=== PATIENT | male | born 1945 | race Caucasian/White ===

== ENCOUNTER → 2016-08-31 | Outpatient (CLI) | payer MEDICARE, OTHER ==
--- NOTE | 2016-08-31 14:59 | CR ---
EXAMINATION: Left knee HISTORY: Osteoarthritis COMPARISON: 01/08/2014 TECHNIQUE: 4 views FINDINGS/IMPRESSION: There is moderate to severe joint space narrowing within the medial compartment of the left knee and less so within the patellofemoral compartment. Osteophyte formation is noted. There is a trace suprapatellar joint fluid without an acute osseous abnormality identified.
== END | disposition home or self-care (01) ==
LOC: MW.CHORTHO 08:05
PROVIDERS: ATTEND Orthopaedic Surgery
DX: M17.9 Osteoarthritis of knee, unspecified (principal); M25.862 Other specified joint disorders, left knee; M25.762 Osteophyte, left knee
CPT/HCPCS: 73564-26-LT; 73564-LT; 99214

== ENCOUNTER → 2016-09-14 | Outpatient (CLI) | payer MEDICARE, OTHER ==
[2016-09-14 15:40] LABS: CHLORIDE,CL 104 mmol/L (98-110); SODIUM,NA 139 mmol/L (136-146)
--- NOTE | 2016-09-14 16:35 | CR ---
EXAMINATION: Two-view chest (PA and Lateral views). HISTORY: Hypertension. FINDINGS: The trachea is midline. The cardiomediastinal silhouette is within normal limits. No pulmonary infil trates, effusions or pneumothorax. Stable left basilar scarring. Osseous structures appear unremarkable. IMPRESSION: No acute cardiopulmonary process.
== END ==
LOC: MW.CHFP 14:41
PROVIDERS: ATTEND Emergency Medicine
DX: Z01.818 Encounter for other preprocedural examination (principal); I10 Essential (primary) hypertension
CPT/HCPCS: 36415; 71020; 71020-26; 80048; 81003; 85027; 85610; 93005; 99214

== ENCOUNTER 2016-10-02 10:00 | Inpatient (IN) | payer MEDICARE, OTHER ==
[~2016-10-02 10:00] MED LIST: Acetaminophen 500 MG Tab PO SCH; Famotidine 20 MG/2 ML SDV IVPUSH SCH; Ropivacaine 49.25 ML, EPINEPHrine 0.5 MG, cloNIDine 80 MCG in Sodium Chloride 0.9% 49.4... INFILT ONE; Scopolamine 1.5 MG Transdermal Patch TRDERM SCH; ceFAZolin 2 GM in Premix Bag 1 BAG IV SCH; oxyCODONE ER 20 MG TAB.ER PO SCH
--- NOTE | 2016-10-02 11:42 | PCM.PREANE ---
Preanesthetic Assessment - Anesthesia/Transfusion/Family Hx Anesthesia History: Prior Anesthesia Without Reaction Other Type of Anesthesia Reaction Comment: Denies any known problem in past Family History of Anesthesia Reaction: No Transfusion History: No Prior Transfusion(s) - Review of Systems General: No Symptoms Pulmonary: No Symptoms Cardiovascular: No Symptoms Gastrointestinal: No symptoms Neurological: No Symptoms Other: Reports: None - Physical Assessment NPO Status Date: 10/01/16 NPO Status Time: 22:00 Height: 1.75 m Weight: 160.572 kg ASA Class: 3 Mental Status: Alert & Oriented x3 Airway Class: Mallampati = 2 Dentition: Reports: Normal Dentition, Missing Tooth/Teeth Lungs: Clear to auscultation, Normal respiratory effort Cardiovascular: Regular Rate, Regular Rhythm - Allergies Allergies/Adverse Reactions: Allergies Allergy/AdvReac Type Severity Reaction Status Date / Time No Known Allergies Allergy Verified 09/28/16 10:37 - Blood Blood Available: Yes - Anesthesia Plan Pre-Op Medication Ordered: None Med Last Dose Date: 10/02/16 Med Last Dose Time: 08:00 (Diltiazem) - Acknowledgements Anesthesia Type Planned: Spinal Pt an Appropriate Candidate for the Planned Anesthesia: Yes Alternatives and Risks of Anesthesia Discussed w Pt/Guardian: Yes Pt/Guardian Understands and Agrees with Anesthesia Plan: Yes Additional Comments: Stent x2 in Jul 2015, off plavix x 1 month, off aspirin x 7 days. PreAnesthesia Questionnaire HEENT History: Reports: Hard of hearing, Other (see below) Other HEENT History: wears glasses, hx of fx nose Cardiovascular History: Reports: CAD, High cholesterol, Hypertension (beta inessa started for htn and cad stopped for worsening COPD/dyspnea), Stents Other Cardiovascular History: stents x 2 in Jul 2015, denies chest pain/SOB Respiratory History: Reports: COPD (moderate obstructive dz per PFTs), Sleep apnea Other Respiratory History: uses CPAP, DAREN is "severe" during periods of REM sleep Gastrointestinal History: Reports: Colon polyp Genitourinary History: Reports: BPH Musculoskeletal History: Reports: Arthritis Neurological History: Reports: None Psychiatric History: Reports: None Endocrine/Metabolic History: Reports: Obesity/BMI 30+ Hematologic History: Reports: None Immunologic History: Reports: None Oncologic (Cancer) History: Reports: None Dermatologic History: Reports: None - Past Surgical History Head Surgeries/Procedures: Reports: None HEENT Surgical History: Reports: Tonsillectomy Cardiovascular Surgical History: Reports: Coronary artery stent Respiratory Surgical History: Reports: None GI Surgical History: Reports: Colonoscopy Male Surgical History: Reports: None Endocrine Surgical History: Reports: None Neurological Surgical History: Reports: None Musculoskeletal Surgical History: Reports: ORIF, Shoulder surgery Other Musculoskeletal Surgeries/Procedures:: ORIF fx left thumb (no hardware), schrapnel removed from shoulder Dermatological Surgical History: Reports: None - SUBSTANCE USE Smoking Status *Q: Never Smoker Tobacco Use Within Last Twelve Months: No Second Hand Smoke Exposure: No Days Per Week of Alcohol Use: 0 Number of Drinks Per Day: 0 Total Drinks Per Week: 0 Recreational Drug Use History: No - HOME MEDS Home Medications: Home Meds Aspirin [Halfprin] 81 mg PO DAILY 12/02/14 [History] Rosuvastatin [Crestor] 1 tab PO DAILY 12/02/14 [History] Albuterol Sulfate 1 vial INH Q4HR PRN 09/28/16 [History] Albuterol Sulfate [Proair Hfa] 2 puff INH QID PRN 09/28/16 [History] Diltiazem HCl [Diltiazem ER] 1 tab PO DAILY 09/28/16 [History] Fluticasone Propionate [Flonase] 1 spray NASBOTH DAILY 09/28/16 [History] Fluticasone/Salmeterol [Advair Diskus 500-50] 1 puff INH BID 09/28/16 [History] Ipratropium/Albuterol Sulfate [Iprat-Albut 0.5-3(2.5) mg/3 ml] 1 dose INH TID [History] Loratadine [Claritin] 1 tab PO DAILY 09/28/16 [History] Montelukast Sodium 1 tab PO BEDTIME 09/28/16 [History] Multivitamin [Men's Multi-Vitamin] 1 tab PO DAILY 09/28/16 [History] Potassium [Potassium] 1 tab PO DAILY 09/28/16 [History] Tamsulosin HCl [Flomax] 1 cap PO DAILY 09/28/16 [History] Ubidecarenone/[place]-3/Vit E [Co Q-10-Vit E-Fish Oil Sfgl] 1 cap PO DAILY [History] - CURRENT (IN HOUSE) MEDS Current Meds: Current Medications Acetaminophen (Tylenol Extra Strength) 1,000 mg PO ONARRIVE [facility] Famotidine (Pepcid) 40 mg IVPUSH ONARRIVE [facility] Lactated Ringer's (Ringers, Lactated) 1,000 mls @ 100 mls/hr IV ASDIRECTED ANGELA Cefazolin Sodium/Dextrose 2 gm (/ Premix) 50 mls @ 100 mls/hr IV ONCALL ANGELA Oxycodone HCl (Oxycontin) 20 mg PO ONARRIVE ANGELA Scopolamine (Transderm-Scop) 1.5 mg TRDERM ONARRIVE ANGELA Tranexamic Acid (Cyklokapron) 4,000 mg IV SEECOMMENT ANGELA Discontinued Medications Ropivacaine 49.25 ml/Epinephrine HCl 0.5 mg/Clonidine HCl 80 mcg/ Sodium Chloride 100 mls @ 3,025.21 mls/hr INFILT ONETIME ONE Stop: 10/02/16 06:01 Tranexamic Acid (Cyklokapron) Confirm Administered Dose 4,000 mg .ROUTE .STK- MED ONE Stop: 10/02/16 07:27 Tranexamic Acid (Cyklokapron) Confirm Administered Dose 1,000 mg .ROUTE .STK- MED ONE Stop: 10/02/16 07:29 Tranexamic Acid (Cyklokapron) Confirm Administered Dose 3,000 mg .ROUTE .STK- MED ONE Stop: 10/02/16 10:17 Preanesthetic Assessment - ANESTHESIA/TRANSFUSION/FAMILY HX Anesthesia/Transfusion History: Prior Anesthesia Other Type of Anesthesia Reaction Comment: Denies any known problem in past Family History of Anesthesia Reaction: No Intubation History: Unknown - PHYSICAL ASSESSMENT Height: 1.75 m Weight: 160.572 kg - ALLERGIES Allergies/Adverse Reactions: Allergies Allergy/AdvReac Type Severity Reaction Status Date / Time No Known Allergies Allergy Verified 09/28/16 10:37
[2016-10-02] MEDS ORDERED: Propofol 200 MG/20 ML SDV ONE ×2 (11:47→11:54)
[2016-10-02] MEDS ORDERED: Midazolam 1 MG/ML 2 ML SDV ONE (11:47)
[2016-10-02] MEDS ORDERED: Lidocaine 2% 5 ML SDV ONE (11:47)
[2016-10-02] MEDS ORDERED: fentaNYL 100 MCG/2 ML SDV ONE ×2 (11:47→14:08)
[2016-10-02] MEDS ORDERED: ceFAZolin 1 GM Vial ONE (11:48)
[2016-10-02] MEDS ORDERED: Sodium Chloride 0.9% 20 ML ONE (11:48)
[2016-10-02] MEDS: Lactated Ringers 1,000 ML IV SCH ×2 (12:14→19:42)
[2016-10-02] MEDS ORDERED: Aspirin 81 MG Tab.Chew PO ONE ×2 (13:45)
[2016-10-02] MEDS ORDERED: ePHEDrine 50 MG/ML SDV ONE (14:36)
[2016-10-02] MEDS ORDERED: fentaNYL 100 MCG/2 ML SDV IVPUSH PRN (14:58)
[2016-10-02] MEDS ORDERED: HYDROmorphone 2 MG/ML Syringe IVPUSH ONE (14:58)
[2016-10-02] MEDS ORDERED: Ondansetron 4 MG/2 ML SDV IV PRN (15:29)
[2016-10-02] MEDS ORDERED: diphenhydrAMINE 25 MG Cap PO PRN (15:30)
[2016-10-02] MEDS ORDERED: Bisacodyl 10 MG Supp RECTAL PRN (15:30)
[2016-10-02] MEDS ORDERED: Aluminum Hydroxide/Magnesium Hydroxide/Simethicone Susp 30 ML Cup PO PRN (15:30)
[2016-10-02] MEDS ORDERED: Albuterol 8 GM Inhaler INH PRN (15:33)
[2016-10-02] MEDS ORDERED: Albuterol 0.083% 2.5 MG/3 ML Neb Soln INH PRN (15:33)
--- NOTE | 2016-10-02 15:47 | PCM.OPNOTE ---
- General Post-Op/Procedure Note Date of Surgery/Procedure: 10/02/16 Operative Procedure(s): L TKA Post-Op Diagnosis: DJD L knee Primary Surgeon: [employer]inator: [employer] Coordinator: Gabriel Ferrell in mLs: 50 Condition: Good Free Text/Narrative:: tt= #[id number]
--- NOTE | 2016-10-02 16:16 | PCM.CONS ---
H&P History of Present Illness - General Date of Service: 10/02/16 Admit Problem/Dx: Admission Diagnosis/Problem Admission Diagnosis/Problem Replacement of total knee joint Source of Information: Patient, Old records History Limitations: Reports: No limitations - History of Present Illness Initial Comments - Free Text/Narative: This 70 year old male with pmh of CAD with stenting in Jul 2015, HTN, COPD, DAREN and morbid obesity presented to for L TKA with Dr. Alonso Elias. Hospitalist service consulted for medical management due to pmh. He just arrived to unit from PACU. He is alert and oriented, feeling well at this time. Denies chest pain, palpitations or SOB. Prior to surgery he was feeling well. Beginning of September he was treated for acute sinusitis with Augmentin by Dr. Cain, PCP. He denies any recent fever sinus pain or pressure, sore throat or productive cough. He was feeling at baseline health. This morning he took his Diltiazem and Advair this am prior to surgery. is at bedside. Reports stenting was done due to progressively worsening dyspnea. Cardiology was consulted in 2015 and placed 2 stents, dyspnea did not improve. Was then seen by Pulmonology which diagnosed him with COPD, mild obstructive deficit. Has been stable since with no worsening of dyspnea symptoms. - Related Data Allergies/Adverse Reactions: Allergies Allergy/AdvReac Type Severity Reaction Status Date / Time No Known Allergies Allergy Verified 09/28/16 10:37 Home Medications: Home Meds Aspirin [Halfprin] 81 mg PO DAILY 12/02/14 [History] Rosuvastatin [Crestor] 10 mg PO DAILY 12/02/14 [History] Albuterol Sulfate 1 vial INH Q4HR PRN 09/28/16 [History] Albuterol Sulfate [Proair Hfa] 2 puff INH QID PRN 09/28/16 [History] Diltiazem HCl [Diltiazem ER] 300 mg PO DAILY 09/28/16 [History] Fluticasone Propionate [Flonase] 1 spray NASBOTH DAILY 09/28/16 [History] Fluticasone/Salmeterol [Advair Diskus 500-50] 1 puff INH BID 09/28/16 [History] Loratadine [Claritin] 10 mg PO DAILY 09/28/16 [History] Montelukast Sodium 10 mg PO BEDTIME 09/28/16 [History] Multivitamin [Men's Multi-Vitamin] 1 tab PO DAILY 09/28/16 [History] Potassium [Potassium] 1 tab PO DAILY 09/28/16 [History] Tamsulosin HCl [Flomax] 0.4 mg PO DAILY 09/28/16 [History] Ubidecarenone/[place]-3/Vit E [Co Q-10-Vit E-Fish Oil Sfgl] 1 cap PO DAILY [History] Nabumetone 500 mg PO DAILY 10/02/16 [History] Past Medical History HEENT History: Reports: Hard of hearing, Sinusitis (recently treated September 14 with Augmentin), Other (see below) Other HEENT History: wears glasses, hx of fx nose Cardiovascular History: Reports: CAD, High cholesterol, Hypertension, Stents Other Cardiovascular History: stents x 2 in Jul 2015 Respiratory History: Reports: COPD, Sleep apnea Other Respiratory History: uses CPAP, DAREN is "severe" during periods of REM sleep Gastrointestinal History: Reports: Colon polyp. Denies: GERD, GI bleed Genitourinary History: Reports: BPH. Denies: Chronic renal insuffiency Musculoskeletal History: Reports: Arthritis Neurological History: Reports: None. Denies: CVA, TIA Psychiatric History: Reports: None Endocrine/Metabolic History: Reports: Obesity/BMI 30+. Denies: Diabetes, type II, Hypothyroidism Hematologic History: Reports: None Immunologic History: Reports: None Oncologic (Cancer) History: Reports: None Dermatologic History: Reports: None - Past Surgical History Head Surgeries/Procedures: Reports: None HEENT Surgical History: Reports: Tonsillectomy Cardiovascular Surgical History: Reports: Coronary artery stent Respiratory Surgical History: Reports: None GI Surgical History: Reports: Colonoscopy Male Surgical History: Reports: None Endocrine Surgical History: Reports: None Neurological Surgical History: Reports: None Musculoskeletal Surgical History: Reports: ORIF, Shoulder surgery Other Musculoskeletal Surgeries/Procedures:: ORIF fx left thumb (no hardware), schrapnel removed from shoulder Dermatological Surgical History: Reports: None Social & Family History - Tobacco Use Smoking Status *Q: Never Smoker Second Hand Smoke Exposure: No - Alcohol Use Alcohol Use History: No Days Per Week of Alcohol Use: 0 Number of Drinks Per Day: 0 Total Drinks Per Week: 0 - Recreational Drug Use Recreational Drug Use: No Drug Use in Last 12 Months: No - Living Situation & Occupation Living situation: Reports: H&P Review of Systems - Review of Systems: Review Of Systems: See Below General: Reports: no symptoms. Denies: fever, fatigue HEENT: Reports: no symptoms. Denies: post nasal drip, sinus congestion Pulmonary: Reports: No Symptoms. Denies: Shortness of Breath, Wheezing, Pleuritic Chest Pain, Cough, Sputum Cardiovascular: Reports: no symptoms. Denies: chest pain, palpitations Gastrointestinal: Reports: No symptoms. Denies: Abdominal pain, Nausea, Vomiting Genitourinary: Reports: no symptoms. Denies: dysuria, frequency, burning Musculoskeletal: Reports: no symptoms Skin: Reports: no symptoms Psychiatric: Reports: no symptoms Neurological: Reports: No Symptoms Hematologic/Lymphatic: Reports: no symptoms Immunologic: Reports: no symptoms Exam - Exam Exam: See Below - Vital Signs Vital Signs: Last Vital Signs Temp 98.8 F 10/02/16 11:30 Pulse 74 10/02/16 11:30 Resp 18 10/02/16 11:30 BP 173/84 H 10/02/16 11:30 Pulse Ox 96 10/02/16 11:30 Weight: 160.572 kg - Exam General: alert, oriented, cooperative HEENT: Conjunctiva clear, EACs clear, EOMI, Hearing intact, Mucosa moist & pink , Nares patent, Posterior pharynx clear Neck: supple, trachea midline Lungs: Clear to auscultation, Normal respiratory effort Cardiovascular: regular rate, regular rhythm, normal S1, normal S2. No: irregular rhythm, systolic murmur Abdomen: normal bowel sounds, soft, other (obese abdomen). No: organomegaly, distention, guarding, tenderness Extremities: normal inspection, normal pulses. No: calf tenderness, increased warmth Peripheral Pulses: 2+: posterior tibial (L), posterior tibial (R), dorsalis pedis (L), dorsalis pedis (R) Skin: incision (L knee, dressing and ALEJANDRA intact) Neuro Extensive - Mental Status: alert, oriented x3, normal mood/affect, normal cognition Psychiatric: alert, normal affect, normal mood - Patient Data Lab Results last 24 hrs: Laboratory Results - last 24 hr 10/02/16 Range/Units 11:54 Blood Type O POSITIVE Antibody Screen NEGATIVE Result Diagrams: 10/02/16 17:01 Consult PN Assessment/Plan Procedures: Procedures AIRWAY INHALATION TREATMENT (04/13/15) ALANINE AMINO (ALT) (SGPT) (11/02/14) ASSAY OF NATRIURETIC PEPTIDE (04/23/15) C-REACTIVE PROTEIN (04/13/15) CARDIAC REHAB/MONITOR (11/03/15) CHEST X-RAY 2VW FRONTAL&LATL (09/14/16) COLONOSCOPY AND BIOPSY (12/04/14) COMPLETE CBC AUTOMATED (09/14/16) COMPLETE CBC W/AUTO DIFF WBC (08/30/15) COMPREHEN METABOLIC PANEL (04/13/15) CT THORAX W/O DYE (06/24/15) DRAIN/INJ JOINT/BURSA W/O US (01/04/16) ELECTROCARDIOGRAM TRACING (09/14/16) EMERGENCY DEPT VISIT (04/13/15) EMERGENCY DEPT VISIT (04/13/15) EVALUATE PT USE OF INHALER (04/13/15) EVALUATION OF WHEEZING (05/03/15) HYDRATE IV INFUSION ADD-ON (04/13/15) LIPID PANEL (04/28/16) METABOLIC PANEL TOTAL CA (09/14/16) MRI JNT OF LWR EXTRE W/O DYE (09/06/16) OFFICE/OUTPATIENT VISIT EST (09/14/16) OFFICE/OUTPATIENT VISIT EST (09/13/15) OFFICE/OUTPATIENT VISIT EST (11/02/14) OFFICE/OUTPATIENT VISIT NEW (11/24/14) OFFICE/OUTPATIENT VISIT NEW (03/05/14) POLYSOM 6/>YRS CPAP 4/> PARM (10/13/15) PPSV23 VACC 2 YRS+ SUBQ/IM (11/02/14) PROTHROMBIN TIME (09/14/16) ROUTINE VENIPUNCTURE (09/14/16) THER/PROPH/DIAG INJ IV PUSH (04/13/15) URINALYSIS AUTO W/O SCOPE (09/14/16) URINALYSIS AUTO W/SCOPE (05/03/16) X-RAY EXAM KNEE 4 OR MORE (08/31/16) (1) COPD (chronic obstructive pulmonary disease) SNOMED Code(s): 78339711 Code(s): J44.9 - CHRONIC OBSTRUCTIVE PULMONARY DISEASE, UNSPECIFIED Current Visit: Yes Qualifiers: Chronic bronchitis type: unspecified (2) HTN (hypertension) SNOMED Code(s): 47599059 Code(s): I10 - ESSENTIAL (PRIMARY) HYPERTENSION Current Visit: Yes Qualifiers: Hypertension type: essential hypertension Qualified Code(s): I10 - Essential (primary) hypertension (3) CAD (coronary artery disease) SNOMED Code(s): 39490136 Code(s): I25.10 - ATHSCL HEART DISEASE OF [place] CORONARY ARTERY W/O ANG PCTRS Current Visit: Yes Qualifiers: Coronary Disease-Associated Artery/Lesion type: [place] artery [place] vs. transplanted heart: [place] heart Associated angina: without angina Qualified Code(s): I25.10 - Atherosclerotic heart disease of [place] coronary artery without angina pectoris (4) DAREN on CPAP SNOMED Code(s): 50166468 Code(s): G47.33 - OBSTRUCTIVE SLEEP APNEA (ADULT) (PEDIATRIC); Z99.89 - DEPENDENCE ON OTHER ENABLING MACHINES AND DEVICES Current Visit: Yes (5) Obesity, morbid, BMI 50 or higher SNOMED Code(s): 810600353, 296048539 Code(s): E66.01 - MORBID (SEVERE) OBESITY DUE TO EXCESS CALORIES Current Visit: Yes Problem List Initiated/Reviewed/Updated: Yes My Orders last 24 hours: My Active Orders 10/02/16 16:13 CBC WITH AUTO DIFF [HEME] Routine COMPREHENSIVE METABOLIC PN,CMP [CHEM] Routine Plan: This 70 year old male admitted with L TKA, Hospitalist service consulted for medical management of HTN, CAD, COPD 1. HTN: Continue Diltiazem. Monitor BP. Will monitor BMP today. 2. CAD: Continue Rousvastatin, ASA and Plavix. Did discontinue Toradol due to cardiac risk. 3. COPD: Continue Advair, Montelukast and Proventil. Encourage IS use. 4. DAREN: CPAP at bedside. VTE: Per Orthopedics. Recommend when deemed appropriate.
--- NOTE | 2016-10-02 16:52 | PCM.POSTAN ---
POST ANESTHESIA ASSESSMENT - MENTAL STATUS Mental Status: alert, oriented - RESPIRATORY Respiratory Status: respiratory rate WNL, airway patent, O2 saturation stable, supplemental oxygen (3L per NC) - CARDIOVASCULAR CV Status: pulse rate WNL, blood pressure stable - GASTROINTESTINAL GI Status: no symptoms - PAIN Pain Score: 0 - POST OP HYDRATION Hydration Status: adequate & stable
[2016-10-02 17:33] LABS: CHLORIDE,CL 107 mmol/L (98-110); SODIUM,NA 139 mmol/L (136-146)
[2016-10-02] MEDS: oxyCODONE 5 MG Tab PO PRN ×2 (19:40→23:51)
[2016-10-02] MEDS: Fluticasone/Salmeterol 500-50 MCG Inhalation Powder 14/Diskus INH SCH (20:29)
[2016-10-02] MEDS: Docusate Sodium 100 MG Cap PO SCH (20:32)
[2016-10-02] MEDS: oxyCODONE ER 20 MG TAB.ER PO SCH (20:32)
[2016-10-02] MEDS: Montelukast 10 MG Tab PO SCH (20:32)
[2016-10-02] MEDS ORDERED: Ketorolac 15 MG/ML SDV IVPUSH SCH (21:00)
[2016-10-02] MEDS: Morphine 10 MG/ML Syringe IVPUSH PRN (21:39)
[2016-10-02] MEDS: ceFAZolin 2 GM in Premix Bag 1 BAG IV SCH (21:43)
[2016-10-03] MEDS: Morphine 10 MG/ML Syringe IVPUSH PRN ×2 (00:51→06:06)
--- NOTE | 2016-10-03 03:13 | OR ---
SURGEON: Edith Elias MD DATE OF PROCEDURE: 10/02/2016 PREOPERATIVE DIAGNOSIS: Osteoarthritis, left knee, tricompartmental. POSTOPERATIVE DIAGNOSIS: Osteoarthritis, left knee, tricompartmental. PROCEDURE: Left total knee arthroplasty using patient specific instrumentation. COMPUTER TECHNOLOGY INSTRUCTOR: 1. Leslie Mills PA-C. 2. Gabriel Ferrell PA-C. ANESTHESIA: Spinal and general. ESTIMATED BLOOD LOSS: 50 mL. TOURNIQUET TIME: COMPLICATIONS: None. DVT PROPHYLAXIS: PAS boot and JESS hose to the nonoperative leg. IMPLANTS USED: Madina NexGen femoral component size G (LPS), tibial component size 7, 10 mm all- polyethylene articular surface, and 38 mm all-polyethylene patella. 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 Osteophyte formation was noted. No extensive synovitis was found. 1 g of tranexamic acid was given IV at the start of the case. An additional gram was given IV upon deflation of the tourniquet. 1 g of TXA was given topically as the cement was allowed to harden. BRIEF HISTORY: Donell is a 70-year-old male, who has had complaint of progressive left knee pain. He had failed conservative treatment. Due to his lack of response to conservative treatment, I did recommend surgical intervention. The risks and goals of procedure were discussed with the patient and documented preoperatively. He agreed to proceed. DESCRIPTION OF PROCEDURE: The patient was properly identified and brought to the operating room. The patient was transferred from the operating room cart and placed on the operating room table. Spinal anesthesia was administered by the anesthesia team. After adequate sedation was achieved, a well-padded tourniquet was applied to the lower extremity. A Greenwood catheter was then placed. The lower extremity was then prepped in standard fashion using ChloraPrep solution. It was then sterilely draped. A time-out was performed to ensure correct site and procedure. Preoperative antibiotics were given. The surgical site had been marked preoperatively. An Esmarch was used to exsanguinate the lower extremity and the tourniquet was inflated. An incision was made centered over the anterior aspect of the knee. The subcutaneous tissues were dissected down to the level of the fascia. A medial parapatellar approach was made. A partial medial release was also performed. The knee was then brought into extension and a portion of the infrapatellar fat pad was excised. The knee was then brought into flexion. The femoral patient specific cutting block was placed. This fit anatomically. The pins were then placed. The 0 degree distal femoral cutting guide was placed over the distal femur pins. The femur was then resected using an oscillating saw. The pins were then removed and were placed into the previously placed distal drill holes in the femoral condyles. Both Cherie's and the epicondylar axis were marked with electric cautery. The cutting block was then placed. This was pinned into position in a slightly lateral and externally rotated position. This was then secured. The resection guide was used to check to make sure that the anterior femoral cortex would not be notched. The anterior condylar cut was then made. No notching of the femur was noted. This was followed by the posterior condylar, posterior chamfer, and anterior chamfer cuts. The narrow reciprocating saw was then used to cut the base of the trochlear recess and score the edges. The finishing guide was then removed and the trochlear recess cuts and remaining bone cuts were finished. The notch cutting block was then placed into position and the notch cut was made without difficulty using the reciprocating saw. This was then removed. The notch block that had been cut along with a portion of the cruciate ligaments were also resected. We then turned our attention to the tibia. The posterior cruciate ligament retractor was used to bring the tibial surface anteriorly. The patient specific tibial block was then placed. This fit anatomically. It was pinned into position. The block was then removed. The 0 degree proximal tibia cutting guide was then placed over the guide pin. This was secured with a Radha clamp. The resection depth was checked using the resection guide. A proximal tibia cut was then made using an oscillating saw. Care was taken to protect the patellar tendon. The proximal tibia bone was then removed. The remainder of the medial and lateral meniscus were also excised. Care was taken to protect the popliteus tendon. The proximal tibia was then sized. The remainder of the osteophytes along the proximal tibia were also resected. The distal femur was elevated to expose the posterior knee. The posterior capsule was stripped off the distal femur using a curved osteotome. The posterior osteophytes were also excised. The posterior capsule, along with the medial and lateral gutters, were then injected with the standard, preoperatively prepared, mixture consisting of clonidine, epinephrine, morphine, ropivacaine, Toradol, and saline, unless any allergies were noted preoperatively. The femoral trial was then placed. This was followed by the tibial component with a size 10 trial polyethylene. The knee was brought into full extension. Stability to varus and valgus stress was checked in extension and in flexion. There appeared to be good range of motion and stability. The knee was then brought into full extension. The patella was everted. The patella was resected to a thickness of 15 millimeters. It was then sized. Once the appropriate size was determined, the patella was prepared by placing the patella button in a slightly superior and medial position. The patella button trial was then placed and the knee was again taken through a range of motion. There was excellent patellar tracking using the no-touch technique. Alignment was checked with a drop yuliana. The trial components were then removed. The knee was brought into full flexion and the tibia was prepared in a standard fashion placing the tibial plate in slight external rotation with the center of the prosthesis lined up with the medial aspect of the tibial tubercle. The wound was then copiously irrigated with Pulsavac solution to remove any bony debris. The bone ends were then suctioned dry. Cement was prepared in the usual fashion on the back table. The cement was then placed onto the proximal tibia and the tibial component was placed without difficulty. This was malleted into position. Excess cement was cleared. The femoral component was cemented in a similar manner. A trial polyethylene was then placed and the knee was brought into full extension. An axial load was applied. The patella button was then cemented into place and a patella clamp was placed to hold pressure. The cement was allowed to cure. After the cement had adequately hardened, the patella clamp was released. The knee was again taken through a range of motion. It was determined at this time the correct thickness of polyethylene. The trial polyethylene insert was then removed. The knee was brought into flexion and the tibial tray was suctioned dry. Any excess cement was cleared from the tibial and femoral components. The knee was then brought into approximately 45 degrees of flexion. The tourniquet was deflated. No excess bleeding was noted from the posterior aspect of the knee. The previously determined sized polyethylene insert was then placed and locked into position without difficulty. The knee was again taken through a range of motion with no change in stability, either in flexion or extension. The wound was again copiously irrigated with the Pulsavac solution. The fascia layer was closed with No. 1 Vicryl. The subcutaneous tissue was closed with 2-0 Vicryl and the skin was closed with a miguel ángel. Xeroform gauze was placed over the wound and a bulky dressing was applied. The patient was then awakened from the anesthetic and transferred back to the operating cart. The patient was brought to recovery room in stable condition. All needle and sponge counts were correct. BLANQUITA / PRIYANKA /[id number]
[2016-10-03] MEDS: oxyCODONE 5 MG Tab PO PRN ×4 (03:55→23:55)
[2016-10-03 04:55] LABS: CHLORIDE,CL 103 mmol/L (98-110); SODIUM,NA 136 mmol/L (136-146)
[2016-10-03] MEDS: ceFAZolin 2 GM in Premix Bag 1 BAG IV SCH (05:30)
[2016-10-03] MEDS: Fluticasone/Salmeterol 500-50 MCG Inhalation Powder 14/Diskus INH SCH ×2 (06:09→20:12)
[2016-10-03] MEDS: Lactated Ringers 1,000 ML IV SCH (06:53)
[2016-10-03] MEDS ORDERED: Sodium Chloride 0.9% 10 ML Syringe FLUSH PRN (08:20)
[2016-10-03] MEDS ORDERED: HYDROmorphone 2 MG/ML Syringe IVPUSH PRN (08:20)
[2016-10-03] MEDS ORDERED: Sodium Chloride 0.9% 2.5 ML Syringe FLUSH PRN (08:20)
--- NOTE | 2016-10-03 08:22 | PCM.SURGPN ---
- General Info Date of Service: 10/03/16 Date of Surgery/Procedure: 10/02/16 POD#: 1 Functional Status: Denies: pain controlled - Review of Systems General: Reports: No Symptoms Musculoskeletal: Reports: leg pain Systems Review Comment:: pt up to chair for breakfast tolerating PO intake well c/o knee pain overnight, difficult to control with PO and IV pain medications no specific concerns from pt today - Patient Data Vitals - most recent: Last Vital Signs Temp 98.7 F 10/03/16 04:00 Pulse 76 10/02/16 19:00 Resp 17 10/03/16 04:00 BP 136/72 10/03/16 04:00 Pulse Ox 95 10/03/16 04:00 Weight - most recent: 160.572 kg I&O - last 24 hours: Intake & Output 10/02/16 10/03/16 10/03/16 22:59 06:59 14:59 Intake Total 2850 2300 Output Total 420 950 Balance 2430 1350 Lab Results last 24 hrs: Laboratory Results - last 24 hr 10/02/16 10/02/16 10/02/16 Range/Units 11:54 17:01 17:01 WBC 5.44 (4.0-11.0) K/uL RBC 4.25 L (4.50-5.90) M/uL Hgb 13.3 (13.0-17.0) g/dL Hct 40.1 (38.0-50.0) % MCV 94.4 (80.0-98.0) fL MCH 31.3 (27.0-32.0) pg MCHC 33.2 (31.0-37.0) g/dL RDW Std Deviation 46.5 (28.0-62.0) fl RDW Coeff of Sonia 14 (11.0-15.0) % Plt Count 135 L (150-400) K/uL MPV 9.90 (7.40-12.00) fL Neut % (Auto) 78.5 (48.0-80.0) % Lymph % (Auto) 11.2 L (16.0-40.0) % [place] % (Auto) 7.7 (0.0-15.0) % Eos % (Auto) 2.4 (0.0-7.0) % Baso % (Auto) 0.2 (0.0-1.5) % Neut # 4.3 (1.4-5.7) K/uL Lymph # 0.6 (0.6-2.4) K/uL [place] # 0.4 (0.0-0.8) K/uL Eos # 0.1 (0.0-0.7) K/uL Baso # 0.0 (0.0-0.1) K/uL Nucleated RBC % 0.0 /100WBC Nucleated RBCs # 0 K/uL Sodium 139 (136-146) mmol/L Potassium 4.6 (3.5-5.1) mmol/L Chloride 107 (98-110) mmol/L Carbon Dioxide 23 (21-31) mmol/L BUN 14 (6.0-23.0) mg/dL Creatinine 1.1 (0.6-1.5) mg/dL Est Cr Clr Drug Dosing 63.17 mL/min Estimated GFR (MDRD) > 60.0 ml/min Glucose 119 H (60-110) mg/dL Calcium 8.3 L (8.8-10.8) mg/dL Total Bilirubin 0.3 (0.1-1.5) mg/dL AST 30 (5-40) IU/L ALT 18 (8-54) IU/L Alkaline Phosphatase 87 (40-150) Total Protein 6.2 (6.0-8.0) g/dL Albumin 3.4 (3.4-4.8) g/dL Globulin 2.8 (2.0-3.5) g/dL Albumin/Globulin Ratio 1.2 L (1.3-2.8) Blood Type O POSITIVE Antibody Screen NEGATIVE 10/03/16 10/03/16 Range/Units 04:17 04:17 WBC 8.71 (4.0-11.0) K/uL RBC 4.06 L (4.50-5.90) M/uL Hgb 12.4 L (13.0-17.0) g/dL Hct 38.5 (38.0-50.0) % MCV 94.8 (80.0-98.0) fL MCH 30.5 (27.0-32.0) pg MCHC 32.2 (31.0-37.0) g/dL RDW Std Deviation 47.3 (28.0-62.0) fl RDW Coeff of Sonia 14 (11.0-15.0) % Plt Count 130 L (150-400) K/uL MPV 10.50 (7.40-12.00) fL Neut % (Auto) 85.7 H (48.0-80.0) % Lymph % (Auto) 4.0 L (16.0-40.0) % [place] % (Auto) 9.1 (0.0-15.0) % Eos % (Auto) 1.1 (0.0-7.0) % Baso % (Auto) 0.1 (0.0-1.5) % Neut # 7.5 H (1.4-5.7) K/uL Lymph # 0.4 L (0.6-2.4) K/uL [place] # 0.8 (0.0-0.8) K/uL Eos # 0.1 (0.0-0.7) K/uL Baso # 0.0 (0.0-0.1) K/uL Nucleated RBC % 0.0 /100WBC Nucleated RBCs # 0 K/uL Sodium 136 (136-146) mmol/L Potassium 4.8 (3.5-5.1) mmol/L Chloride 103 (98-110) mmol/L Carbon Dioxide 24 (21-31) mmol/L BUN 15 (6.0-23.0) mg/dL Creatinine 1.0 (0.6-1.5) mg/dL Est Cr Clr Drug Dosing 69.48 mL/min Estimated GFR (MDRD) > 60.0 ml/min Glucose 144 H (60-110) mg/dL Calcium 8.2 L (8.8-10.8) mg/dL Total Bilirubin (0.1-1.5) mg/dL AST (5-40) IU/L ALT (8-54) IU/L Alkaline Phosphatase (40-150) Total Protein (6.0-8.0) g/dL Albumin (3.4-4.8) g/dL Globulin (2.0-3.5) g/dL Albumin/Globulin Ratio (1.3-2.8) Blood Type Antibody Screen Med Orders - Current: Current Medications Al Hydroxide/Mg Hydroxide (Mag-Al Plus) 30 ml PO Q4H PRN PRN Reason: indigestion Albuterol (Proventil Neb Soln) 2.5 mg INH Q4HR PRN PRN Reason: Wheezing Albuterol (Ventolin Hfa) 0 gm INH QID PRN PRN Reason: Shortness of Breath Aspirin (Halfprin) 81 mg PO DAILY [facility] Bisacodyl (Dulcolax) 10 mg RECTAL DAILY PRN PRN Reason: Constipation Calcium Carbonate/Glycine (Tums) 1,000 mg PO DAILY [facility] Clopidogrel Bisulfate (Plavix) 75 mg PO DAILY [facility] Diltiazem HCl (Cardizem Cd) 120 mg PO DAILY [facility] Diltiazem HCl (Cardizem Cd) 180 mg PO DAILY [facility] Diphenhydramine HCl (Benadryl) 25 - 50 mg PO Q6H PRN PRN Reason: Itching Docusate Sodium (Colace) 100 mg PO BID [facility] Last Admin: 10/02/16 20:32 Dose: 100 mg Famotidine (Pepcid) 40 mg PO DAILY [facility] Fluticasone Propionate (Flonase) 0 gm NASBOTH DAILY [facility] Lactated Ringer's (Ringers, Lactated) 1,000 mls @ 100 mls/hr IV ASDIRECTED [facility] Last Admin: 10/03/16 06:53 Dose: 100 mls/hr Loratadine (Claritin) 10 mg PO DAILY [facility] Montelukast Sodium (Singulair) 10 mg PO BEDTIME [facility] Last Admin: 10/02/16 20:32 Dose: 10 mg Morphine Sulfate (Morphine) 1 - 3 mg IVPUSH Q3H PRN PRN Reason: Pain Last Admin: 10/03/16 06:06 Dose: 3 mg Multivitamins/Minerals/Vitamin C (Tab-A-Zuly) 1 tab PO DAILY [facility] Ondansetron HCl (Zofran) 4 mg IV Q6HR PRN PRN Reason: NAUSEA/VOMITING Oxycodone HCl (Oxycodone) 5 - 10 mg PO Q4H PRN PRN Reason: Pain Last Admin: 10/03/16 03:55 Dose: 10 mg Oxycodone HCl (Oxycontin) 20 mg PO Q12HR [facility] Last Admin: 10/02/16 20:32 Dose: 20 mg Rosuvastatin Calcium (Crestor) 10 mg PO DAILY [facility] Fluticasone/Salmeterol (Advair Diskus 500-50) 1 puff INH BIDRT [facility]GEL[facility] Last Admin: 10/03/16 06:09 Dose: 1 inhalation Scopolamine (Transderm-Scop) 1.5 mg TRDERM ONARRIVE ANGELA Last Admin: 10/02/16 12:10 Dose: 1.5 mg Tamsulosin HCl (Flomax) 0.4 mg PO DAILY [facility] Discontinued Medications Acetaminophen (Tylenol Extra Strength) 1,000 mg PO ONARRIVE ANGELA Last Admin: 10/02/16 12:12 Dose: 1,000 mg Aspirin (Aspirin) 325 mg PO ONETIME ONE Stop: 10/02/16 13:46 Aspirin (Aspirin) 324 mg PO ONETIME ONE Stop: 10/02/16 13:46 Last Admin: 10/02/16 13:43 Dose: 324 mg Cefazolin Sodium (Ancef) Confirm Administered Dose 2 gm .ROUTE .STK-MED ONE Stop: 10/02/16 11:49 Ephedrine Sulfate (Ephedrine Sulfate) Confirm Administered Dose 50 mg .ROUTE .STK-MED ONE Stop: 10/02/16 14:37 Famotidine (Pepcid) 40 mg IVPUSH ONARRIVE [facility] Last Admin: 10/02/16 12:09 Dose: 40 mg Fentanyl (Sublimaze) Confirm Administered Dose 100 mcg .ROUTE .STK-MED ONE Stop: 10/02/16 11:48 Fentanyl (Sublimaze) Confirm Administered Dose 100 mcg .ROUTE .STK-MED ONE Stop: 10/02/16 14:09 Fentanyl (Sublimaze) 50 mcg IVPUSH Q5M PRN PRN Reason: Pain (severe 7-10) Stop: 10/03/16 14:58 Hydromorphone HCl (Dilaudid) 0 mg IVPUSH ONETIME ONE Stop: 10/02/16 14:59 Last Admin: 10/02/16 20:03 Dose: Not Given Ropivacaine 49.25 ml/Epinephrine HCl 0.5 mg/Clonidine HCl 80 mcg/ Sodium Chloride 100 mls @ 3,025.21 mls/hr INFILT ONETIME ONE Stop: 10/02/16 06:01 Cefazolin Sodium/Dextrose 2 gm (/ Premix) 50 mls @ 100 mls/hr IV ONCALL ANGELA Sodium Chloride (Normal Saline) Confirm Administered Dose 20 mls @ as directed .ROUTE .STK-MED ONE Stop: 10/02/16 11:49 Cefazolin Sodium/Dextrose 2 gm (/ Premix) 50 mls @ 100 mls/hr IV Q8H [facility] Stop: 10/03/16 06:29 Last Admin: 10/03/16 05:30 Dose: 100 mls/hr Ketorolac Tromethamine (Toradol) 15 mg IVPUSH Q6H [facility] Stop: 10/03/16 03:01 Lidocaine (Xylocaine-Mpf 2%) Confirm Administered Dose 10 ml .ROUTE .STK-MED ONE Stop: 10/02/16 11:48 Midazolam HCl (Versed 1 Mg/Ml) Confirm Administered Dose 2 mg .ROUTE .STK-MED ONE Stop: 10/02/16 11:48 Oxycodone HCl (Oxycontin) 20 mg PO ONARRIVE [facility] Last Admin: 10/02/16 12:13 Dose: 20 mg Propofol (Diprivan 20 Ml) Confirm Administered Dose 400 mg .ROUTE .STK-MED ONE Stop: 10/02/16 11:48 Propofol (Diprivan 20 Ml) Confirm Administered Dose 200 mg .ROUTE .STK-MED ONE Stop: 10/02/16 11:55 Tranexamic Acid (Cyklokapron) 4,000 mg IV SEECOMMENT [facility] Tranexamic Acid (Cyklokapron) Confirm Administered Dose 4,000 mg .ROUTE .STK- MED ONE Stop: 10/02/16 07:27 Tranexamic Acid (Cyklokapron) Confirm Administered Dose 1,000 mg .ROUTE .STK- MED ONE Stop: 10/02/16 07:29 Tranexamic Acid (Cyklokapron) Confirm Administered Dose 3,000 mg .ROUTE .STK- MED ONE Stop: 10/02/16 10:17 Tranexamic Acid (Cyklokapron) Confirm Administered Dose 4,000 mg .ROUTE .STK- MED ONE Stop: 10/02/16 13:03 - Exam Wound/Incisions: dressing dry and intact General: alert, oriented Cardiovascular: Regular Rate, Regular Rhythm Extremities: no edema, normal pulses, no calf tenderness, other (LLE - at/ehl/ gastroc 5/5, dp 2+, sensation intact distally) Physical Findings Comment:: vss, afeb hgb 12.4 uo 1370mL - Problem List Review Problem List Initiated/Reviewed/Updated: Yes - My Orders Last 24 Hours: Active Orders 24 hr Category Date Time Status Patient Status [ADT] Routine ADT 10/02/16 15:40 Active Transfer Patient (Change bed) [ADT] Routine ADT 10/02/16 15:40 Ordered Activity as Tolerated [RC] .Routine Care 10/02/16 15:29 Active Dressing Change [Wound Care] [RC] Q12H Care 10/02/16 15:29 Active Intake and Output [RC] Q12H Care 10/02/16 15:28 Active Neurovascular Check [RC] Q2HR Care 10/02/16 15:28 Active Notify Provider Consults [RC] ASDIRECTED Care 10/02/16 15:31 Active Notify Provider Vital Signs [RC] ASDIRECTED Care 10/02/16 15:29 Active RT Aerosol Therapy [RC] ASDIRECTED Care 10/02/16 15:34 Active RT BiPAP/CPAP [RC] ASDIRECTED Care 10/02/16 15:34 Active RT Incentive Spirometry [RC] ASDIRECTED Care 10/02/16 15:28 Active Vital Signs [RC] Q4H Care 10/02/16 15:28 Active Consult to Physician [CONS] Routine Cons 10/02/16 15:27 Active PT Evaluation and Treatment [CONS] Routine Cons 10/02/16 15:28 Active Knee 1V or 2V Lt [CR] Routine Exams 10/02/16 16:00 Taken BMP [BASIC METABOLIC PANEL,BMP] [CHEM] DAILY Lab 10/04/16 05:00 Ordered BMP [BASIC METABOLIC PANEL,BMP] [CHEM] DAILY Lab 10/05/16 05:00 Ordered CBC WITH AUTO DIFF [HEME] DAILY Lab 10/04/16 05:00 Ordered CBC WITH AUTO DIFF [HEME] DAILY Lab 10/05/16 05:00 Ordered Albuterol [Proventil Neb Soln] Med 10/02/16 15:33 Active 2.5 mg INH Q4HR PRN Albuterol [Ventolin HFA] Med 10/02/16 15:33 Active 0 gm INH QID PRN Alum Hydrox/Mag Hydrox/Simeth [Mag-Al Plus] Med 10/02/16 15:30 Active 30 ml PO Q4H PRN Aspirin [Halfprin] Med 10/03/16 09:00 Active 81 mg PO DAILY Bisacodyl [Dulcolax] Med 10/02/16 15:30 Active 10 mg RECTAL DAILY PRN Calcium Carbonate [Tums] Med 10/03/16 09:00 Active 1,000 mg PO DAILY Clopidogrel [Plavix] Med 10/03/16 09:00 Active 75 mg PO DAILY Diltiazem [Cardizem CD] Med 10/03/16 09:00 Active 120 mg PO DAILY Diltiazem [Cardizem CD] Med 10/03/16 09:00 Active 180 mg PO DAILY Docusate Sodium [Colace] Med 10/02/16 21:00 Active 100 mg PO BID Famotidine [Pepcid] Med 10/03/16 09:00 Active 40 mg PO DAILY Fluticasone Propionate [Flonase] Med 10/03/16 09:00 Active 0 gm NASBOTH DAILY Fluticasone/Salmeterol [Advair Diskus 500-50] Med 10/02/16 21:00 Active 1 puff INH BIDRT Loratadine [Claritin] Med 10/03/16 09:00 Active 10 mg PO DAILY Montelukast [Singulair] Med 10/02/16 21:00 Active 10 mg PO BEDTIME Morphine Med 10/02/16 15:30 Active 1 - 3 mg IVPUSH Q3H PRN Multivitamins [Tab-A-Zuly] Med 10/03/16 09:00 Active 1 tab PO DAILY Ondansetron [Zofran] Med 10/02/16 15:29 Active 4 mg IV Q6HR PRN Rosuvastatin [Crestor] Med 10/03/16 09:00 Active 10 mg PO DAILY Tamsulosin [Flomax] Med 10/03/16 09:00 Active 0.4 mg PO DAILY diphenhydrAMINE [Benadryl] Med 10/02/16 15:30 Active 25 - 50 mg PO Q6H PRN oxyCODONE Med 10/02/16 15:30 Active 5 - 10 mg PO Q4H PRN oxyCODONE ER [OxyCONTIN] Med 10/02/16 21:00 Active 20 mg PO Q12HR Ice Therapy [OM.PC] Routine Oth 10/02/16 15:28 Ordered Medication Orders Al Hydroxide/Mg Hydroxide (Mag-Al Plus) 30 ml PO Q4H PRN PRN Reason: indigestion Albuterol (Proventil Neb Soln) 2.5 mg INH Q4HR PRN PRN Reason: Wheezing Albuterol (Ventolin Hfa) 0 gm INH QID PRN PRN Reason: Shortness of Breath Aspirin (Halfprin) 81 mg PO DAILY [facility] Bisacodyl (Dulcolax) 10 mg RECTAL DAILY PRN PRN Reason: Constipation Calcium Carbonate/Glycine (Tums) 1,000 mg PO DAILY [facility] Clopidogrel Bisulfate (Plavix) 75 mg PO DAILY [facility] Diltiazem HCl (Cardizem Cd) 120 mg PO DAILY [facility] Diltiazem HCl (Cardizem Cd) 180 mg PO DAILY [facility] Diphenhydramine HCl (Benadryl) 25 - 50 mg PO Q6H PRN PRN Reason: Itching Docusate Sodium (Colace) 100 mg PO BID [facility] Last Admin: 10/02/16 20:32 Dose: 100 mg Famotidine (Pepcid) 40 mg PO DAILY [facility] Fluticasone Propionate (Flonase) 0 gm NASBOTH DAILY [facility] Lactated Ringer's (Ringers, Lactated) 1,000 mls @ 100 mls/hr IV ASDIRECTED [facility] Last Admin: 10/03/16 06:53 Dose: 100 mls/hr Infusion: 10/03/16 05:42 Dose: 100 mls/hr Admin: 10/02/16 19:42 Dose: 100 mls/hr Infusion: 10/02/16 19:42 Dose: 100 mls/hr Admin: 10/02/16 12:14 Dose: 100 mls/hr Loratadine (Claritin) 10 mg PO DAILY [facility] Montelukast Sodium (Singulair) 10 mg PO BEDTIME [facility] Last Admin: 10/02/16 20:32 Dose: 10 mg Morphine Sulfate (Morphine) 1 - 3 mg IVPUSH Q3H PRN PRN Reason: Pain Last Admin: 10/03/16 06:06 Dose: 3 mg Admin: 10/03/16 00:51 Dose: 3 mg Admin: 10/02/16 21:39 Dose: 3 mg Multivitamins/Minerals/Vitamin C (Tab-A-Zuly) 1 tab PO DAILY [facility] Ondansetron HCl (Zofran) 4 mg IV Q6HR PRN PRN Reason: NAUSEA/VOMITING Oxycodone HCl (Oxycodone) 5 - 10 mg PO Q4H PRN PRN Reason: Pain Last Admin: 10/03/16 03:55 Dose: 10 mg Admin: 10/02/16 23:51 Dose: 10 mg Admin: 10/02/16 19:40 Dose: 10 mg Oxycodone HCl (Oxycontin) 20 mg PO Q12HR [facility] Last Admin: 10/02/16 20:32 Dose: 20 mg Rosuvastatin Calcium (Crestor) 10 mg PO DAILY [facility] Fluticasone/Salmeterol (Advair Diskus 500-50) 1 puff INH BIDRT ANGEL[facility] Last Admin: 10/03/16 06:09 Dose: 1 inhalation Admin: 10/02/16 20:29 Dose: 1 inhalation Scopolamine (Transderm-Scop) 1.5 mg TRDERM ONARRIVE ANGELA Last Admin: 10/02/16 12:10 Dose: 1.5 mg Tamsulosin HCl (Flomax) 0.4 mg PO DAILY [facility] - Assessment Assessment (Free Text/Narrative):: POD#1 L TKA acute posthemorrhagic anemia - Plan Plan (Free Text/Narrative):: DC patterson DC IV fluids DC PRN IV morphine start PRN IV dilaudid add PO tylenol scheduled resume home plavix and ASA for DVT prophylaxis PT today appreciate hospitalist assistance with medical comorbidities
[2016-10-03] MEDS: Diltiazem 120 MG Cap.CD PO SCH (08:41)
[2016-10-03] MEDS: Rosuvastatin 10 MG Tab PO SCH (08:42)
[2016-10-03] MEDS: Aspirin 81 MG Tab.EC PO SCH (08:42)
[2016-10-03] MEDS: Acetaminophen 500 MG Tab PO SCH ×3 (08:42→21:17)
[2016-10-03] MEDS: Diltiazem 180 MG Cap.CD PO SCH (08:42)
[2016-10-03] MEDS: Tamsulosin 0.4 MG Cap.ER PO SCH (08:42)
[2016-10-03] MEDS: Clopidogrel 75 MG Tab PO SCH (08:42)
[2016-10-03] MEDS: Famotidine 20 MG Tab PO SCH (08:42)
[2016-10-03] MEDS: Multivitamin Tab PO SCH (08:42)
[2016-10-03] MEDS: Loratadine 10 MG Tab PO SCH (08:42)
[2016-10-03] MEDS: Docusate Sodium 100 MG Cap PO SCH ×2 (08:42→21:17)
--- NOTE | 2016-10-03 08:42 | PCM.CONSN ---
- General Info Date of Service: 10/03/16 Admission Dx/Problem (Free Text): Admission Diagnosis/Problem Admission Diagnosis/Problem Replacement of total knee joint Subjective Update: Sitting up in chair this am, reports night was very long and he did not sleep well due to pain in his L knee. Denies any chest pain or SOB. No palpitations, N /V or abdominal pain. Functional Status: Reports: tolerating diet, ambulating - Review of Systems General: Reports: No Symptoms. Denies: Fever Pulmonary: Reports: no symptoms. Denies: shortness of breath, cough, sputum Cardiovascular: Reports: No Symptoms. Denies: Chest Pain, Palpitations, Edema Gastrointestinal: Reports: No symptoms. Denies: Abdominal pain, Nausea, Vomiting Musculoskeletal: Reports: leg pain (L knee pain) Skin: Reports: no symptoms Neurological: Reports: No Symptoms Psychiatric: Reports: no symptoms - Patient Data Vitals - most recent: Last Vital Signs Temp 98.7 F 10/03/16 04:00 Pulse 76 10/02/16 19:00 Resp 17 10/03/16 04:00 BP 136/72 10/03/16 04:00 Pulse Ox 95 10/03/16 04:00 Weight - most recent: 160.572 kg I&O - last 24 hours: Intake & Output 10/02/16 10/03/16 10/03/16 22:59 06:59 14:59 Intake Total 2850 2300 Output Total 420 950 Balance 2430 1350 Lab Results last 24 hrs: Laboratory Results - last 24 hr 10/02/16 10/02/16 10/02/16 Range/Units 11:54 17:01 17:01 WBC 5.44 (4.0-11.0) K/uL RBC 4.25 L (4.50-5.90) M/uL Hgb 13.3 (13.0-17.0) g/dL Hct 40.1 (38.0-50.0) % MCV 94.4 (80.0-98.0) fL MCH 31.3 (27.0-32.0) pg MCHC 33.2 (31.0-37.0) g/dL RDW Std Deviation 46.5 (28.0-62.0) fl RDW Coeff of Sonia 14 (11.0-15.0) % Plt Count 135 L (150-400) K/uL MPV 9.90 (7.40-12.00) fL Neut % (Auto) 78.5 (48.0-80.0) % Lymph % (Auto) 11.2 L (16.0-40.0) % [place] % (Auto) 7.7 (0.0-15.0) % Eos % (Auto) 2.4 (0.0-7.0) % Baso % (Auto) 0.2 (0.0-1.5) % Neut # 4.3 (1.4-5.7) K/uL Lymph # 0.6 (0.6-2.4) K/uL [place] # 0.4 (0.0-0.8) K/uL Eos # 0.1 (0.0-0.7) K/uL Baso # 0.0 (0.0-0.1) K/uL Nucleated RBC % 0.0 /100WBC Nucleated RBCs # 0 K/uL Sodium 139 (136-146) mmol/L Potassium 4.6 (3.5-5.1) mmol/L Chloride 107 (98-110) mmol/L Carbon Dioxide 23 (21-31) mmol/L BUN 14 (6.0-23.0) mg/dL Creatinine 1.1 (0.6-1.5) mg/dL Est Cr Clr Drug Dosing 63.17 mL/min Estimated GFR (MDRD) > 60.0 ml/min Glucose 119 H (60-110) mg/dL Calcium 8.3 L (8.8-10.8) mg/dL Total Bilirubin 0.3 (0.1-1.5) mg/dL AST 30 (5-40) IU/L ALT 18 (8-54) IU/L Alkaline Phosphatase 87 (40-150) Total Protein 6.2 (6.0-8.0) g/dL Albumin 3.4 (3.4-4.8) g/dL Globulin 2.8 (2.0-3.5) g/dL Albumin/Globulin Ratio 1.2 L (1.3-2.8) Blood Type O POSITIVE Antibody Screen NEGATIVE 10/03/16 10/03/16 Range/Units 04:17 04:17 WBC 8.71 (4.0-11.0) K/uL RBC 4.06 L (4.50-5.90) M/uL Hgb 12.4 L (13.0-17.0) g/dL Hct 38.5 (38.0-50.0) % MCV 94.8 (80.0-98.0) fL MCH 30.5 (27.0-32.0) pg MCHC 32.2 (31.0-37.0) g/dL RDW Std Deviation 47.3 (28.0-62.0) fl RDW Coeff of Sonia 14 (11.0-15.0) % Plt Count 130 L (150-400) K/uL MPV 10.50 (7.40-12.00) fL Neut % (Auto) 85.7 H (48.0-80.0) % Lymph % (Auto) 4.0 L (16.0-40.0) % [place] % (Auto) 9.1 (0.0-15.0) % Eos % (Auto) 1.1 (0.0-7.0) % Baso % (Auto) 0.1 (0.0-1.5) % Neut # 7.5 H (1.4-5.7) K/uL Lymph # 0.4 L (0.6-2.4) K/uL [place] # 0.8 (0.0-0.8) K/uL Eos # 0.1 (0.0-0.7) K/uL Baso # 0.0 (0.0-0.1) K/uL Nucleated RBC % 0.0 /100WBC Nucleated RBCs # 0 K/uL Sodium 136 (136-146) mmol/L Potassium 4.8 (3.5-5.1) mmol/L Chloride 103 (98-110) mmol/L Carbon Dioxide 24 (21-31) mmol/L BUN 15 (6.0-23.0) mg/dL Creatinine 1.0 (0.6-1.5) mg/dL Est Cr Clr Drug Dosing 69.48 mL/min Estimated GFR (MDRD) > 60.0 ml/min Glucose 144 H (60-110) mg/dL Calcium 8.2 L (8.8-10.8) mg/dL Total Bilirubin (0.1-1.5) mg/dL AST (5-40) IU/L ALT (8-54) IU/L Alkaline Phosphatase (40-150) Total Protein (6.0-8.0) g/dL Albumin (3.4-4.8) g/dL Globulin (2.0-3.5) g/dL Albumin/Globulin Ratio (1.3-2.8) Blood Type Antibody Screen Med Orders - Current: Current Medications Acetaminophen (Tylenol Extra Strength) 1,000 mg PO Q6H ANGELA Al Hydroxide/Mg Hydroxide (Mag-Al Plus) 30 ml PO Q4H PRN PRN Reason: indigestion Albuterol (Proventil Neb Soln) 2.5 mg INH Q4HR PRN PRN Reason: Wheezing Albuterol (Ventolin Hfa) 0 gm INH QID PRN PRN Reason: Shortness of Breath Aspirin (Halfprin) 81 mg PO DAILY [facility] Bisacodyl (Dulcolax) 10 mg RECTAL DAILY PRN PRN Reason: Constipation Calcium Carbonate/Glycine (Tums) 1,000 mg PO DAILY [facility] Clopidogrel Bisulfate (Plavix) 75 mg PO DAILY [facility] Diltiazem HCl (Cardizem Cd) 120 mg PO DAILY [facility] Diltiazem HCl (Cardizem Cd) 180 mg PO DAILY [facility] Diphenhydramine HCl (Benadryl) 25 - 50 mg PO Q6H PRN PRN Reason: Itching Docusate Sodium (Colace) 100 mg PO BID [facility] Last Admin: 10/02/16 20:32 Dose: 100 mg Famotidine (Pepcid) 40 mg PO DAILY [facility] Fluticasone Propionate (Flonase) 0 gm NASBOTH DAILY [facility] Hydromorphone HCl (Dilaudid) 0.5 - 1 mg IVPUSH Q3H PRN PRN Reason: Pain Lactated Ringer's (Ringers, Lactated) 1,000 mls @ 100 mls/hr IV ASDIRECTED [facility] Last Admin: 10/03/16 06:53 Dose: 100 mls/hr Loratadine (Claritin) 10 mg PO DAILY [facility] Montelukast Sodium (Singulair) 10 mg PO BEDTIME [facility] Last Admin: 10/02/16 20:32 Dose: 10 mg Multivitamins/Minerals/Vitamin C (Tab-A-Zuly) 1 tab PO DAILY [facility] Ondansetron HCl (Zofran) 4 mg IV Q6HR PRN PRN Reason: NAUSEA/VOMITING Oxycodone HCl (Oxycodone) 5 - 10 mg PO Q4H PRN PRN Reason: Pain Last Admin: 10/03/16 03:55 Dose: 10 mg Oxycodone HCl (Oxycontin) 20 mg PO Q12HR [facility] Last Admin: 10/02/16 20:32 Dose: 20 mg Rosuvastatin Calcium (Crestor) 10 mg PO DAILY [facility] Fluticasone/Salmeterol (Advair Diskus 500-50) 1 puff INH BIDRT [facility] Last Admin: 10/03/16 06:09 Dose: 1 inhalation Scopolamine (Transderm-Scop) 1.5 mg TRDERM ONARRIVE [facility] Last Admin: 10/02/16 12:10 Dose: 1.5 mg Sodium Chloride (Saline Flush) 10 ml FLUSH ASDIRECTED PRN PRN Reason: Keep Vein Open Sodium Chloride (Saline Flush) 2.5 ml FLUSH ASDIRECTED PRN PRN Reason: Keep Vein Open Tamsulosin HCl (Flomax) 0.4 mg PO DAILY [facility] Discontinued Medications Acetaminophen (Tylenol Extra Strength) 1,000 mg PO ONARRIVE [facility] Last Admin: 10/02/16 12:12 Dose: 1,000 mg Aspirin (Aspirin) 325 mg PO ONETIME ONE Stop: 10/02/16 13:46 Aspirin (Aspirin) 324 mg PO ONETIME ONE Stop: 10/02/16 13:46 Last Admin: 10/02/16 13:43 Dose: 324 mg Cefazolin Sodium (Ancef) Confirm Administered Dose 2 gm .ROUTE .STK-MED ONE Stop: 10/02/16 11:49 Ephedrine Sulfate (Ephedrine Sulfate) Confirm Administered Dose 50 mg .ROUTE .STK-MED ONE Stop: 10/02/16 14:37 Famotidine (Pepcid) 40 mg IVPUSH ONARRIVE [facility] Last Admin: 10/02/16 12:09 Dose: 40 mg Fentanyl (Sublimaze) Confirm Administered Dose 100 mcg .ROUTE .STK-MED ONE Stop: 10/02/16 11:48 Fentanyl (Sublimaze) Confirm Administered Dose 100 mcg .ROUTE .STK-MED ONE Stop: 10/02/16 14:09 Fentanyl (Sublimaze) 50 mcg IVPUSH Q5M PRN PRN Reason: Pain (severe 7-10) Stop: 10/03/16 14:58 Hydromorphone HCl (Dilaudid) 0 mg IVPUSH ONETIME ONE Stop: 10/02/16 14:59 Last Admin: 10/02/16 20:03 Dose: Not Given Ropivacaine 49.25 ml/Epinephrine HCl 0.5 mg/Clonidine HCl 80 mcg/ Sodium Chloride 100 mls @ 3,025.21 mls/hr INFILT ONETIME ONE Stop: 10/02/16 06:01 Cefazolin Sodium/Dextrose 2 gm (/ Premix) 50 mls @ 100 mls/hr IV ONCALL [facility] Sodium Chloride (Normal Saline) Confirm Administered Dose 20 mls @ as directed .ROUTE .STK-MED ONE Stop: 10/02/16 11:49 Cefazolin Sodium/Dextrose 2 gm (/ Premix) 50 mls @ 100 mls/hr IV Q8H [facility] Stop: 10/03/16 06:29 Last Admin: 10/03/16 05:30 Dose: 100 mls/hr Ketorolac Tromethamine (Toradol) 15 mg IVPUSH Q6H [facility] Stop: 10/03/16 03:01 Lidocaine (Xylocaine-Mpf 2%) Confirm Administered Dose 10 ml .ROUTE .STK-MED ONE Stop: 10/02/16 11:48 Midazolam HCl (Versed 1 Mg/Ml) Confirm Administered Dose 2 mg .ROUTE .STK-MED ONE Stop: 10/02/16 11:48 Morphine Sulfate (Morphine) 1 - 3 mg IVPUSH Q3H PRN PRN Reason: Pain Last Admin: 10/03/16 06:06 Dose: 3 mg Oxycodone HCl (Oxycontin) 20 mg PO ONARRIVE [facility] Last Admin: 10/02/16 12:13 Dose: 20 mg Propofol (Diprivan 20 Ml) Confirm Administered Dose 400 mg .ROUTE .STK-MED ONE Stop: 10/02/16 11:48 Propofol (Diprivan 20 Ml) Confirm Administered Dose 200 mg .ROUTE .STK-MED ONE Stop: 10/02/16 11:55 Tranexamic Acid (Cyklokapron) 4,000 mg IV SEECOMMENT [facility] Tranexamic Acid (Cyklokapron) Confirm Administered Dose 4,000 mg .ROUTE .STK- MED ONE Stop: 10/02/16 07:27 Tranexamic Acid (Cyklokapron) Confirm Administered Dose 1,000 mg .ROUTE .STK- MED ONE Stop: 10/02/16 07:29 Tranexamic Acid (Cyklokapron) Confirm Administered Dose 3,000 mg .ROUTE .STK- MED ONE Stop: 10/02/16 10:17 Tranexamic Acid (Cyklokapron) Confirm Administered Dose 4,000 mg .ROUTE .STK- MED ONE Stop: 10/02/16 13:03 - Exam Quality Assessment: urine catheter, DVT prophylaxis General: alert, oriented, cooperative Neck: supple Lungs: Clear to auscultation, Normal respiratory effort Cardiovascular: Regular Rate, Regular Rhythm, No Murmurs. No: Irregular Rhythm , Murmurs Abdomen: bowel sounds present, soft, no tenderness, no distension. No: tenderness Extremities: no calf tenderness, edema (trace edema BLE) Wound/Incisions: dressing dry and intact Psy/Mental Status: alert, normal affect, normal mood Consult PN Assessment/Plan Procedures: Procedures AIRWAY INHALATION TREATMENT (04/13/15) ALANINE AMINO (ALT) (SGPT) (11/02/14) ASSAY OF NATRIURETIC PEPTIDE (04/23/15) C-REACTIVE PROTEIN (04/13/15) CARDIAC REHAB/MONITOR (11/03/15) CHEST X-RAY 2VW FRONTAL&LATL (09/14/16) COLONOSCOPY AND BIOPSY (12/04/14) COMPLETE CBC AUTOMATED (09/14/16) COMPLETE CBC W/AUTO DIFF WBC (08/30/15) COMPREHEN METABOLIC PANEL (04/13/15) CT THORAX W/O DYE (06/24/15) DRAIN/INJ JOINT/BURSA W/O US (01/04/16) ELECTROCARDIOGRAM TRACING (09/14/16) EMERGENCY DEPT VISIT (04/13/15) EMERGENCY DEPT VISIT (04/13/15) EVALUATE PT USE OF INHALER (04/13/15) EVALUATION OF WHEEZING (05/03/15) HYDRATE IV INFUSION ADD-ON (04/13/15) LIPID PANEL (04/28/16) METABOLIC PANEL TOTAL CA (09/14/16) MRI JNT OF LWR EXTRE W/O DYE (09/06/16) OFFICE/OUTPATIENT VISIT EST (09/14/16) OFFICE/OUTPATIENT VISIT EST (09/13/15) OFFICE/OUTPATIENT VISIT EST (11/02/14) OFFICE/OUTPATIENT VISIT NEW (11/24/14) OFFICE/OUTPATIENT VISIT NEW (03/05/14) POLYSOM 6/>YRS CPAP 4/> PARM (10/13/15) PPSV23 VACC 2 YRS+ SUBQ/IM (11/02/14) PROTHROMBIN TIME (09/14/16) ROUTINE VENIPUNCTURE (09/14/16) THER/PROPH/DIAG INJ IV PUSH (04/13/15) URINALYSIS AUTO W/O SCOPE (09/14/16) URINALYSIS AUTO W/SCOPE (05/03/16) X-RAY EXAM KNEE 4 OR MORE (08/31/16) (1) COPD (chronic obstructive pulmonary disease) SNOMED Code(s): 56159760 Code(s): J44.9 - CHRONIC OBSTRUCTIVE PULMONARY DISEASE, UNSPECIFIED Current Visit: Yes Qualifiers: Chronic bronchitis type: unspecified (2) HTN (hypertension) SNOMED Code(s): 93557792 Code(s): I10 - ESSENTIAL (PRIMARY) HYPERTENSION Current Visit: Yes Qualifiers: Hypertension type: essential hypertension Qualified Code(s): I10 - Essential (primary) hypertension (3) CAD (coronary artery disease) SNOMED Code(s): 51639635 Code(s): I25.10 - ATHSCL HEART DISEASE OF [place] CORONARY ARTERY W/O ANG PCTRS Current Visit: Yes Qualifiers: Coronary Disease-Associated Artery/Lesion type: [place] artery [place] vs. transplanted heart: [place] heart Associated angina: without angina Qualified Code(s): I25.10 - Atherosclerotic heart disease of [place] coronary artery without angina pectoris (4) DAREN on CPAP SNOMED Code(s): 00194993 Code(s): G47.33 - OBSTRUCTIVE SLEEP APNEA (ADULT) (PEDIATRIC); Z99.89 - DEPENDENCE ON OTHER ENABLING MACHINES AND DEVICES Current Visit: Yes (5) Obesity, morbid, BMI 50 or higher SNOMED Code(s): 418019254, 745386750 Code(s): E66.01 - MORBID (SEVERE) OBESITY DUE TO EXCESS CALORIES Current Visit: Yes Problem List Initiated/Reviewed/Updated: Yes My Orders last 24 hours: My Active Orders 10/04/16 05:00 BMP [BASIC METABOLIC PANEL,BMP] [CHEM] DAILY CBC WITH AUTO DIFF [HEME] DAILY 10/05/16 05:00 BMP [BASIC METABOLIC PANEL,BMP] [CHEM] DAILY CBC WITH AUTO DIFF [HEME] DAILY Plan: This 70 year old male admitted with L TKA, Hospitalist service consulted for medical management of HTN, CAD, COPD 1. HTN: Continue Diltiazem. Monitor BP, BP slightly elevated overnight, maybe due to pain being uncontrolled, will monitor. BMP WNL. 2. CAD: Continue Rousvastatin, ASA and Plavix. 3. COPD: Continue Advair, Montelukast and Proventil. Encourage IS use. 4. DAREN: CPAP at bedside. VTE: Per Orthopedics. Recommend when deemed appropriate.
[2016-10-03] MEDS: Calcium Carbonate 500 MG Tab.Chew PO SCH (08:43)
[2016-10-03] MEDS: Fluticasone Propionate Nasal Spray 16 GM Bottle NASBOTH SCH (08:43)
[2016-10-03] MEDS: oxyCODONE ER 20 MG TAB.ER PO SCH ×2 (08:43→21:17)
[2016-10-03] MEDS ORDERED: [UNRECOGNIZED DRUG - OTHER] PO SCH (09:00)
[2016-10-03] MEDS ORDERED: Non-Formulary Medication 1 Each (Potassium [Potassium] 1 TAB) PO SCH (09:00)
[2016-10-03] MEDS ORDERED: UBIDECARENONE PO SCH (09:00)
[2016-10-03] MEDS ORDERED: OMEGA PO SCH (09:00)
[2016-10-03] MEDS ORDERED: VIT E PO SCH (09:00)
--- NOTE | 2016-10-03 09:35 | CR ---
EXAMINATION: Left knee HISTORY: Postoperative COMPARISON: 09/06/2016 TECHNIQUE: 2 views FINDINGS/IMPRESSION: Left total knee hardware is demonstrated in good position and alignment. Operat rina soft tissue changes noted.
--- NOTE | 2016-10-03 10:50 | PCM48HPAN ---
Post Anesthesia Note - EVALUATION WITHIN 48HRS OF ANESTHETIC Vital Signs in Normal Range: Yes Patient Participated in Evaluation: Yes Respiratory Function Stable: Yes Airway Patent: Yes Cardiovascular Function Stable: Yes Hydration Status Stable: Yes Pain Control Satisfactory: Yes Nausea and Vomiting Control Satisfactory: Yes Mental Status Recovered: Yes - COMMENTS/OBSERVATIONS Free Text/Narrative:: However, last night he did not sleep well due to pain. Pain was relieved by getting out of bed and walking then and just a few minutes ago. resting with CPAP. satisfied with anesthetic and operative course yesterday.
--- NOTE | 2016-10-03 12:47 | PCM.SN ---
- Free Text/Narrative Note: Thao seen and examined. Agree with Gene RUBIO note. Patient is currently sitting up in the chair. He has been ambulating with physical therapy. His pain has been well-controlled. Exam of the knee shows a dressing to be in place. NVI. Will plan to continue with physical therapy and current pain management. His hemoglobin is stable. We will plan to discharge patient home tomorrow if he continues to improve.
[2016-10-03] MEDS: Montelukast 10 MG Tab PO SCH (21:17)
[2016-10-04] MEDS: Acetaminophen 500 MG Tab PO SCH ×2 (02:27→09:58)
[2016-10-04] MEDS: oxyCODONE 5 MG Tab PO PRN (06:26)
[2016-10-04] MEDS: Fluticasone/Salmeterol 500-50 MCG Inhalation Powder 14/Diskus INH SCH (06:33)
--- NOTE | 2016-10-04 08:09 | PCM.SURGPN ---
- General Info Date of Service: 10/04/16 Date of Surgery/Procedure: 10/02/16 POD#: 2 Functional Status: Reports: pain controlled - Review of Systems General: Reports: No Symptoms Pulmonary: Denies: shortness of breath Cardiovascular: Denies: Chest Pain, Palpitations Gastrointestinal: Denies: Nausea Musculoskeletal: Reports: leg pain Systems Review Comment:: pt up to chair doing well today pain better controlled has not yet done stairs with PT if he does well with PT today and pain continues to be controlled, he would like to go home today - Patient Data Vitals - most recent: Last Vital Signs Temp 98 F 10/04/16 04:00 Pulse 89 10/04/16 04:00 Resp 17 10/04/16 04:00 BP 131/66 10/04/16 04:00 Pulse Ox 92 L 10/04/16 04:00 Weight - most recent: 160.572 kg I&O - last 24 hours: Intake & Output 10/03/16 10/04/16 10/04/16 22:59 06:59 14:59 Intake Total 1258 640 Output Total 590 850 Balance 668 -210 Lab Results last 24 hrs: Laboratory Results - last 24 hr 10/04/16 10/04/16 Range/Units 04:57 04:57 WBC 7.28 (4.0-11.0) K/uL RBC 3.95 L (4.50-5.90) M/uL Hgb 12.1 L (13.0-17.0) g/dL Hct 37.1 L (38.0-50.0) % MCV 93.9 (80.0-98.0) fL MCH 30.6 (27.0-32.0) pg MCHC 32.6 (31.0-37.0) g/dL RDW Std Deviation 47.2 (28.0-62.0) fl RDW Coeff of Sonia 14 (11.0-15.0) % Plt Count 148 L (150-400) K/uL MPV 10.10 (7.40-12.00) fL Neut % (Auto) 74.3 (48.0-80.0) % Lymph % (Auto) 9.5 L (16.0-40.0) % Barber % (Auto) 13.2 (0.0-15.0) % Eos % (Auto) 2.9 (0.0-7.0) % Baso % (Auto) 0.1 (0.0-1.5) % Neut # 5.4 (1.4-5.7) K/uL Lymph # 0.7 (0.6-2.4) K/uL Barber # 1.0 H (0.0-0.8) K/uL Eos # 0.2 (0.0-0.7) K/uL Baso # 0.0 (0.0-0.1) K/uL Nucleated RBC % 0.0 /100WBC Nucleated RBCs # 0 K/uL Sodium 134 L (136-146) mmol/L Potassium 4.7 (3.5-5.1) mmol/L Chloride 99 (98-110) mmol/L Carbon Dioxide 28 (21-31) mmol/L BUN 20 (6.0-23.0) mg/dL Creatinine 1.3 (0.6-1.5) mg/dL Est Cr Clr Drug Dosing 53.45 mL/min Estimated GFR (MDRD) 54.7 ml/min Glucose 120 H (60-110) mg/dL Calcium 8.1 L (8.8-10.8) mg/dL Med Orders - Current: Current Medications Acetaminophen (Tylenol Extra Strength) 1,000 mg PO Q6H [facility] Last Admin: 10/04/16 02:27 Dose: 1,000 mg Al Hydroxide/Mg Hydroxide (Mag-Al Plus) 30 ml PO Q4H PRN PRN Reason: indigestion Albuterol (Proventil Neb Soln) 2.5 mg INH Q4HR PRN PRN Reason: Wheezing Albuterol (Ventolin Hfa) 0 gm INH QID PRN PRN Reason: Shortness of Breath Aspirin (Halfprin) 81 mg PO DAILY [facility] Last Admin: 10/03/16 08:42 Dose: 81 mg Bisacodyl (Dulcolax) 10 mg RECTAL DAILY PRN PRN Reason: Constipation Calcium Carbonate/Glycine (Tums) 1,000 mg PO DAILY [facility] Last Admin: 10/03/16 08:43 Dose: 1,000 mg Clopidogrel Bisulfate (Plavix) 75 mg PO DAILY [facility] Last Admin: 10/03/16 08:42 Dose: 75 mg Diltiazem HCl (Cardizem Cd) 120 mg PO DAILY [facility] Last Admin: 10/03/16 08:41 Dose: 120 mg Diltiazem HCl (Cardizem Cd) 180 mg PO DAILY [facility] Last Admin: 10/03/16 08:42 Dose: 180 mg Diphenhydramine HCl (Benadryl) 25 - 50 mg PO Q6H PRN PRN Reason: Itching Docusate Sodium (Colace) 100 mg PO BID [facility] Last Admin: 10/03/16 21:17 Dose: 100 mg Famotidine (Pepcid) 40 mg PO DAILY [facility] Last Admin: 10/03/16 08:42 Dose: 40 mg Fluticasone Propionate (Flonase) 0 gm NASBOTH DAILY [facility] Last Admin: 10/03/16 08:43 Dose: 1 spr Hydromorphone HCl (Dilaudid) 0.5 - 1 mg IVPUSH Q3H PRN PRN Reason: Pain Last Admin: 10/03/16 13:36 Dose: 1 mg Loratadine (Claritin) 10 mg PO DAILY [facility] Last Admin: 10/03/16 08:42 Dose: 10 mg Montelukast Sodium (Singulair) 10 mg PO BEDTIME [facility] Last Admin: 10/03/16 21:17 Dose: 10 mg Multivitamins/Minerals/Vitamin C (Tab-A-Zuly) 1 tab PO DAILY [facility] Last Admin: 10/03/16 08:42 Dose: 1 tab Ondansetron HCl (Zofran) 4 mg IV Q6HR PRN PRN Reason: NAUSEA/VOMITING Oxycodone HCl (Oxycodone) 5 - 10 mg PO Q4H PRN PRN Reason: Pain Last Admin: 10/04/16 06:26 Dose: 10 mg Oxycodone HCl (Oxycontin) 20 mg PO Q12HR [facility] Last Admin: 10/03/16 21:17 Dose: 20 mg Rosuvastatin Calcium (Crestor) 10 mg PO DAILY [facility] Last Admin: 10/03/16 08:42 Dose: 10 mg Fluticasone/Salmeterol (Advair Diskus 500-50) 1 puff INH BIDRT [facility] Last Admin: 10/04/16 06:33 Dose: 1 inhalation Scopolamine (Transderm-Scop) 1.5 mg TRDERM ONARRIVE [facility] Last Admin: 10/02/16 12:10 Dose: 1.5 mg Sodium Chloride (Saline Flush) 10 ml FLUSH ASDIRECTED PRN PRN Reason: Keep Vein Open Sodium Chloride (Saline Flush) 2.5 ml FLUSH ASDIRECTED PRN PRN Reason: Keep Vein Open Tamsulosin HCl (Flomax) 0.4 mg PO DAILY [facility] Last Admin: 10/03/16 08:42 Dose: 0.4 mg Discontinued Medications Acetaminophen (Tylenol Extra Strength) 1,000 mg PO ONARRIVE [facility] Last Admin: 10/02/16 12:12 Dose: 1,000 mg Aspirin (Aspirin) 325 mg PO ONETIME ONE Stop: 10/02/16 13:46 Aspirin (Aspirin) 324 mg PO ONETIME ONE Stop: 10/02/16 13:46 Last Admin: 10/02/16 13:43 Dose: 324 mg Cefazolin Sodium (Ancef) Confirm Administered Dose 2 gm .ROUTE .STK-MED ONE Stop: 10/02/16 11:49 Ephedrine Sulfate (Ephedrine Sulfate) Confirm Administered Dose 50 mg .ROUTE .STK-MED ONE Stop: 10/02/16 14:37 Famotidine (Pepcid) 40 mg IVPUSH ONARRIVE [facility] Last Admin: 10/02/16 12:09 Dose: 40 mg Fentanyl (Sublimaze) Confirm Administered Dose 100 mcg .ROUTE .STK-MED ONE Stop: 10/02/16 11:48 Fentanyl (Sublimaze) Confirm Administered Dose 100 mcg .ROUTE .STK-MED ONE Stop: 10/02/16 14:09 Fentanyl (Sublimaze) 50 mcg IVPUSH Q5M PRN PRN Reason: Pain (severe 7-10) Stop: 10/03/16 14:58 Hydromorphone HCl (Dilaudid) 0 mg IVPUSH ONETIME ONE Stop: 10/02/16 14:59 Last Admin: 10/02/16 20:03 Dose: Not Given Ropivacaine 49.25 ml/Epinephrine HCl 0.5 mg/Clonidine HCl 80 mcg/ Sodium Chloride 100 mls @ 3,025.21 mls/hr INFILT ONETIME ONE Stop: 10/02/16 06:01 Lactated Ringer's (Ringers, Lactated) 1,000 mls @ 100 mls/hr IV ASDIRECTED [facility] Last Admin: 10/03/16 06:53 Dose: 100 mls/hr Cefazolin Sodium/Dextrose 2 gm (/ Premix) 50 mls @ 100 mls/hr IV ONCALL [facility] Sodium Chloride (Normal Saline) Confirm Administered Dose 20 mls @ as directed .ROUTE .STK-MED ONE Stop: 10/02/16 11:49 Cefazolin Sodium/Dextrose 2 gm (/ Premix) 50 mls @ 100 mls/hr IV Q8H [facility] Stop: 10/03/16 06:29 Last Admin: 10/03/16 05:30 Dose: 100 mls/hr Ketorolac Tromethamine (Toradol) 15 mg IVPUSH Q6H [facility] Stop: 10/03/16 03:01 Lidocaine (Xylocaine-Mpf 2%) Confirm Administered Dose 10 ml .ROUTE .STK-MED ONE Stop: 10/02/16 11:48 Midazolam HCl (Versed 1 Mg/Ml) Confirm Administered Dose 2 mg .ROUTE .STK-MED ONE Stop: 10/02/16 11:48 Morphine Sulfate (Morphine) 1 - 3 mg IVPUSH Q3H PRN PRN Reason: Pain Last Admin: 10/03/16 06:06 Dose: 3 mg Oxycodone HCl (Oxycontin) 20 mg PO ONARRIVE [facility] Last Admin: 10/02/16 12:13 Dose: 20 mg Propofol (Diprivan 20 Ml) Confirm Administered Dose 400 mg .ROUTE .STK-MED ONE Stop: 10/02/16 11:48 Propofol (Diprivan 20 Ml) Confirm Administered Dose 200 mg .ROUTE .STK-MED ONE Stop: 10/02/16 11:55 Tranexamic Acid (Cyklokapron) 4,000 mg IV SEECOMMENT [facility] Tranexamic Acid (Cyklokapron) Confirm Administered Dose 4,000 mg .ROUTE .STK- MED ONE Stop: 10/02/16 07:27 Tranexamic Acid (Cyklokapron) Confirm Administered Dose 1,000 mg .ROUTE .STK- MED ONE Stop: 10/02/16 07:29 Tranexamic Acid (Cyklokapron) Confirm Administered Dose 3,000 mg .ROUTE .STK- MED ONE Stop: 10/02/16 10:17 Tranexamic Acid (Cyklokapron) Confirm Administered Dose 4,000 mg .ROUTE .STK- MED ONE Stop: 10/02/16 13:03 - Exam Wound/Incisions: healing well. No: drainage, erythema General: alert Cardiovascular: Regular Rate, Regular Rhythm Extremities: no edema, normal pulses, no calf tenderness, other (LLE - at/ehl/ gastroc 5/5, dp 2+, sensation intact distally) Physical Findings Comment:: vss, afeb hgb 12.1 - Problem List Review Problem List Initiated/Reviewed/Updated: Yes - My Orders Last 24 Hours: Active Orders 24 hr Category Date Time Status Urinary Catheter Removal [RC] Per Unit Routine Care 10/03/16 08:20 Active BMP [BASIC METABOLIC PANEL,BMP] [CHEM] DAILY Lab 10/05/16 05:00 Ordered CBC WITH AUTO DIFF [HEME] DAILY Lab 10/05/16 05:00 Ordered Acetaminophen [Tylenol Extra Strength] Med 10/03/16 09:00 Active 1,000 mg PO Q6H Aspirin [Halfprin] Med 10/03/16 09:00 Active 81 mg PO DAILY Calcium Carbonate [Tums] Med 10/03/16 09:00 Active 1,000 mg PO DAILY Clopidogrel [Plavix] Med 10/03/16 09:00 Active 75 mg PO DAILY Diltiazem [Cardizem CD] Med 10/03/16 09:00 Active 120 mg PO DAILY Diltiazem [Cardizem CD] Med 10/03/16 09:00 Active 180 mg PO DAILY Famotidine [Pepcid] Med 10/03/16 09:00 Active 40 mg PO DAILY Fluticasone Propionate [Flonase] Med 10/03/16 09:00 Active 0 gm NASBOTH DAILY HYDROmorphone [Dilaudid] Med 10/03/16 08:20 Active 0.5 - 1 mg IVPUSH Q3H PRN Loratadine [Claritin] Med 10/03/16 09:00 Active 10 mg PO DAILY Multivitamins [Tab-A-Zuly] Med 10/03/16 09:00 Active 1 tab PO DAILY Rosuvastatin [Crestor] Med 10/03/16 09:00 Active 10 mg PO DAILY Sodium Chloride 0.9% [Saline Flush] Med 10/03/16 08:20 Active 10 ml FLUSH ASDIRECTED PRN Sodium Chloride 0.9% [Saline Flush] Med 10/03/16 08:20 Active 2.5 ml FLUSH ASDIRECTED PRN Tamsulosin [Flomax] Med 10/03/16 09:00 Active 0.4 mg PO DAILY Convert IV to Saline Lock [OM.PC] Routine Oth 10/03/16 08:20 Ordered Medication Orders Acetaminophen (Tylenol Extra Strength) 1,000 mg PO Q6H [facility] Last Admin: 10/04/16 02:27 Dose: 1,000 mg Admin: 10/03/16 21:17 Dose: 1,000 mg Admin: 10/03/16 14:45 Dose: 1,000 mg Admin: 10/03/16 08:42 Dose: 1,000 mg Al Hydroxide/Mg Hydroxide (Mag-Al Plus) 30 ml PO Q4H PRN PRN Reason: indigestion Albuterol (Proventil Neb Soln) 2.5 mg INH Q4HR PRN PRN Reason: Wheezing Albuterol (Ventolin Hfa) 0 gm INH QID PRN PRN Reason: Shortness of Breath Aspirin (Halfprin) 81 mg PO DAILY [facility] Last Admin: 10/03/16 08:42 Dose: 81 mg Bisacodyl (Dulcolax) 10 mg RECTAL DAILY PRN PRN Reason: Constipation Calcium Carbonate/Glycine (Tums) 1,000 mg PO DAILY [facility] Last Admin: 10/03/16 08:43 Dose: 1,000 mg Clopidogrel Bisulfate (Plavix) 75 mg PO DAILY [facility] Last Admin: 10/03/16 08:42 Dose: 75 mg Diltiazem HCl (Cardizem Cd) 120 mg PO DAILY [facility] Last Admin: 10/03/16 08:41 Dose: 120 mg Diltiazem HCl (Cardizem Cd) 180 mg PO DAILY [facility] Last Admin: 10/03/16 08:42 Dose: 180 mg Diphenhydramine HCl (Benadryl) 25 - 50 mg PO Q6H PRN PRN Reason: Itching Docusate Sodium (Colace) 100 mg PO BID [facility] Last Admin: 10/03/16 21:17 Dose: 100 mg Admin: 10/03/16 08:42 Dose: 100 mg Admin: 10/02/16 20:32 Dose: 100 mg Famotidine (Pepcid) 40 mg PO DAILY [facility] Last Admin: 10/03/16 08:42 Dose: 40 mg Fluticasone Propionate (Flonase) 0 gm NASBOTH DAILY [facility] Last Admin: 10/03/16 08:43 Dose: 1 spr Hydromorphone HCl (Dilaudid) 0.5 - 1 mg IVPUSH Q3H PRN PRN Reason: Pain Last Admin: 10/03/16 13:36 Dose: 1 mg Loratadine (Claritin) 10 mg PO DAILY [facility] Last Admin: 10/03/16 08:42 Dose: 10 mg Montelukast Sodium (Singulair) 10 mg PO BEDTIME [facility] Last Admin: 10/03/16 21:17 Dose: 10 mg Admin: 10/02/16 20:32 Dose: 10 mg Multivitamins/Minerals/Vitamin C (Tab-A-Zuly) 1 tab PO DAILY [facility] Last Admin: 10/03/16 08:42 Dose: 1 tab Ondansetron HCl (Zofran) 4 mg IV Q6HR PRN PRN Reason: NAUSEA/VOMITING Oxycodone HCl (Oxycodone) 5 - 10 mg PO Q4H PRN PRN Reason: Pain Last Admin: 10/04/16 06:26 Dose: 10 mg Admin: 10/03/16 23:55 Dose: 10 mg Admin: 10/03/16 17:31 Dose: 10 mg Admin: 10/03/16 12:17 Dose: 10 mg Admin: 10/03/16 03:55 Dose: 10 mg Admin: 10/02/16 23:51 Dose: 10 mg Admin: 10/02/16 19:40 Dose: 10 mg Oxycodone HCl (Oxycontin) 20 mg PO Q12HR [facility] Last Admin: 10/03/16 21:17 Dose: 20 mg Admin: 10/03/16 08:43 Dose: 20 mg Admin: 10/02/16 20:32 Dose: 20 mg Rosuvastatin Calcium (Crestor) 10 mg PO DAILY [facility] Last Admin: 10/03/16 08:42 Dose: 10 mg Fluticasone/Salmeterol (Advair Diskus 500-50) 1 puff INH BIDRT [facility] Last Admin: 10/04/16 06:33 Dose: 1 inhalation Admin: 10/03/16 20:12 Dose: 1 inhalation Admin: 10/03/16 06:09 Dose: 1 inhalation Admin: 10/02/16 20:29 Dose: 1 inhalation Scopolamine (Transderm-Scop) 1.5 mg TRDERM ONARRIVE [facility] Last Admin: 10/02/16 12:10 Dose: 1.5 mg Sodium Chloride (Saline Flush) 10 ml FLUSH ASDIRECTED PRN PRN Reason: Keep Vein Open Sodium Chloride (Saline Flush) 2.5 ml FLUSH ASDIRECTED PRN PRN Reason: Keep Vein Open Tamsulosin HCl (Flomax) 0.4 mg PO DAILY [facility] Last Admin: 10/03/16 08:42 Dose: 0.4 mg - Assessment Assessment (Free Text/Narrative):: POD#2 L TKA acute posthemorrhagic anemia - Plan Plan (Free Text/Narrative):: continue pain management, PT today if pt continues with adequate pain control and therapy goes well, may d/ch to home this afternoon. otherwise home tomorrow after therapy dressing changed to aquacel
[2016-10-04] MEDS: Calcium Carbonate 500 MG Tab.Chew PO SCH (09:53)
[2016-10-04] MEDS: Famotidine 20 MG Tab PO SCH (09:56)
[2016-10-04] MEDS: Docusate Sodium 100 MG Cap PO SCH (09:57)
[2016-10-04] MEDS: Diltiazem 180 MG Cap.CD PO SCH (09:57)
[2016-10-04] MEDS: Aspirin 81 MG Tab.EC PO SCH (09:57)
[2016-10-04] MEDS: oxyCODONE ER 20 MG TAB.ER PO SCH (09:57)
[2016-10-04] MEDS: Rosuvastatin 10 MG Tab PO SCH (09:57)
[2016-10-04] MEDS: Clopidogrel 75 MG Tab PO SCH (09:58)
[2016-10-04] MEDS: Tamsulosin 0.4 MG Cap.ER PO SCH (09:58)
[2016-10-04] MEDS: Diltiazem 120 MG Cap.CD PO SCH (09:59)
[2016-10-04] MEDS: Multivitamin Tab PO SCH (10:00)
[2016-10-04] MEDS: Loratadine 10 MG Tab PO SCH (10:00)
[2016-10-04] MEDS: Fluticasone Propionate Nasal Spray 16 GM Bottle NASBOTH SCH (10:01)
--- NOTE | 2016-10-04 11:19 | PCM.CONSN ---
- General Info Date of Service: 10/04/16 Admission Dx/Problem (Free Text): Admission Diagnosis/Problem Admission Diagnosis/Problem Replacement of total knee joint Subjective Update: Sitting up in chair this morning. No complaints of chest pain or SOB. Pain is much better today, 4/10 and is tolerable. Eager to be discharged. Functional Status: Reports: pain controlled, tolerating diet, ambulating - Review of Systems General: Reports: No Symptoms. Denies: Fever Pulmonary: Reports: no symptoms. Denies: shortness of breath Cardiovascular: Reports: No Symptoms. Denies: Chest Pain, Palpitations Gastrointestinal: Reports: Flatus Genitourinary: Reports: no symptoms. Denies: dysuria, frequency, burning - Patient Data Vitals - most recent: Last Vital Signs Temp 98.3 F 10/04/16 08:00 Pulse 88 10/04/16 09:59 Resp 16 10/04/16 08:00 BP 141/78 H 10/04/16 09:59 Pulse Ox 94 L 10/04/16 08:00 Weight - most recent: 160.572 kg I&O - last 24 hours: Intake & Output 10/03/16 10/04/16 10/04/16 22:59 06:59 14:59 Intake Total 1258 640 Output Total 590 850 Balance 668 -210 Lab Results last 24 hrs: Laboratory Results - last 24 hr 10/04/16 10/04/16 Range/Units 04:57 04:57 WBC 7.28 (4.0-11.0) K/uL RBC 3.95 L (4.50-5.90) M/uL Hgb 12.1 L (13.0-17.0) g/dL Hct 37.1 L (38.0-50.0) % MCV 93.9 (80.0-98.0) fL MCH 30.6 (27.0-32.0) pg MCHC 32.6 (31.0-37.0) g/dL RDW Std Deviation 47.2 (28.0-62.0) fl RDW Coeff of Sonia 14 (11.0-15.0) % Plt Count 148 L (150-400) K/uL MPV 10.10 (7.40-12.00) fL Neut % (Auto) 74.3 (48.0-80.0) % Lymph % (Auto) 9.5 L (16.0-40.0) % [place] % (Auto) 13.2 (0.0-15.0) % Eos % (Auto) 2.9 (0.0-7.0) % Baso % (Auto) 0.1 (0.0-1.5) % Neut # 5.4 (1.4-5.7) K/uL Lymph # 0.7 (0.6-2.4) K/uL [place] # 1.0 H (0.0-0.8) K/uL Eos # 0.2 (0.0-0.7) K/uL Baso # 0.0 (0.0-0.1) K/uL Nucleated RBC % 0.0 /100WBC Nucleated RBCs # 0 K/uL Sodium 134 L (136-146) mmol/L Potassium 4.7 (3.5-5.1) mmol/L Chloride 99 (98-110) mmol/L Carbon Dioxide 28 (21-31) mmol/L BUN 20 (6.0-23.0) mg/dL Creatinine 1.3 (0.6-1.5) mg/dL Est Cr Clr Drug Dosing 53.45 mL/min Estimated GFR (MDRD) 54.7 ml/min Glucose 120 H (60-110) mg/dL Calcium 8.1 L (8.8-10.8) mg/dL Med Orders - Current: Current Medications Acetaminophen (Tylenol Extra Strength) 1,000 mg PO Q6H [facility] Last Admin: 10/04/16 09:58 Dose: 1,000 mg Al Hydroxide/Mg Hydroxide (Mag-Al Plus) 30 ml PO Q4H PRN PRN Reason: indigestion Albuterol (Proventil Neb Soln) 2.5 mg INH Q4HR PRN PRN Reason: Wheezing Albuterol (Ventolin Hfa) 0 gm INH QID PRN PRN Reason: Shortness of Breath Aspirin (Halfprin) 81 mg PO DAILY [facility] Last Admin: 10/04/16 09:57 Dose: 81 mg Bisacodyl (Dulcolax) 10 mg RECTAL DAILY PRN PRN Reason: Constipation Calcium Carbonate/Glycine (Tums) 1,000 mg PO DAILY [facility] Last Admin: 10/04/16 09:53 Dose: 1,000 mg Clopidogrel Bisulfate (Plavix) 75 mg PO DAILY [facility] Last Admin: 10/04/16 09:58 Dose: 75 mg Diltiazem HCl (Cardizem Cd) 120 mg PO DAILY [facility] Last Admin: 10/04/16 09:59 Dose: 120 mg Diltiazem HCl (Cardizem Cd) 180 mg PO DAILY [facility] Last Admin: 10/04/16 09:57 Dose: 180 mg Diphenhydramine HCl (Benadryl) 25 - 50 mg PO Q6H PRN PRN Reason: Itching Docusate Sodium (Colace) 100 mg PO BID [facility] Last Admin: 10/04/16 09:57 Dose: 100 mg Famotidine (Pepcid) 40 mg PO DAILY [facility] Last Admin: 10/04/16 09:56 Dose: 40 mg Fluticasone Propionate (Flonase) 0 gm NASBOTH DAILY [facility] Last Admin: 10/04/16 10:01 Dose: 1 spr Hydromorphone HCl (Dilaudid) 0.5 - 1 mg IVPUSH Q3H PRN PRN Reason: Pain Last Admin: 10/03/16 13:36 Dose: 1 mg Loratadine (Claritin) 10 mg PO DAILY [facility] Last Admin: 10/04/16 10:00 Dose: 10 mg Montelukast Sodium (Singulair) 10 mg PO BEDTIME [facility] Last Admin: 10/03/16 21:17 Dose: 10 mg Multivitamins/Minerals/Vitamin C (Tab-A-Zuly) 1 tab PO DAILY [facility] Last Admin: 10/04/16 10:00 Dose: 1 tab Ondansetron HCl (Zofran) 4 mg IV Q6HR PRN PRN Reason: NAUSEA/VOMITING Oxycodone HCl (Oxycodone) 5 - 10 mg PO Q4H PRN PRN Reason: Pain Last Admin: 10/04/16 06:26 Dose: 10 mg Oxycodone HCl (Oxycontin) 20 mg PO Q12HR [facility] Last Admin: 10/04/16 09:57 Dose: 20 mg Rosuvastatin Calcium (Crestor) 10 mg PO DAILY [facility] Last Admin: 10/04/16 09:57 Dose: 10 mg Fluticasone/Salmeterol (Advair Diskus 500-50) 1 puff INH BIDRT [facility] Last Admin: 10/04/16 06:33 Dose: 1 inhalation Scopolamine (Transderm-Scop) 1.5 mg TRDERM ONARRIVE [facility] Last Admin: 10/02/16 12:10 Dose: 1.5 mg Sodium Chloride (Saline Flush) 10 ml FLUSH ASDIRECTED PRN PRN Reason: Keep Vein Open Sodium Chloride (Saline Flush) 2.5 ml FLUSH ASDIRECTED PRN PRN Reason: Keep Vein Open Tamsulosin HCl (Flomax) 0.4 mg PO DAILY [facility] Last Admin: 10/04/16 09:58 Dose: 0.4 mg Discontinued Medications Acetaminophen (Tylenol Extra Strength) 1,000 mg PO ONARRIVE [facility] Last Admin: 10/02/16 12:12 Dose: 1,000 mg Aspirin (Aspirin) 325 mg PO ONETIME ONE Stop: 10/02/16 13:46 Aspirin (Aspirin) 324 mg PO ONETIME ONE Stop: 10/02/16 13:46 Last Admin: 10/02/16 13:43 Dose: 324 mg Cefazolin Sodium (Ancef) Confirm Administered Dose 2 gm .ROUTE .STK-MED ONE Stop: 10/02/16 11:49 Ephedrine Sulfate (Ephedrine Sulfate) Confirm Administered Dose 50 mg .ROUTE .STK-MED ONE Stop: 10/02/16 14:37 Famotidine (Pepcid) 40 mg IVPUSH ONARRIVE [facility] Last Admin: 10/02/16 12:09 Dose: 40 mg Fentanyl (Sublimaze) Confirm Administered Dose 100 mcg .ROUTE .STK-MED ONE Stop: 10/02/16 11:48 Fentanyl (Sublimaze) Confirm Administered Dose 100 mcg .ROUTE .STK-MED ONE Stop: 10/02/16 14:09 Fentanyl (Sublimaze) 50 mcg IVPUSH Q5M PRN PRN Reason: Pain (severe 7-10) Stop: 10/03/16 14:58 Hydromorphone HCl (Dilaudid) 0 mg IVPUSH ONETIME ONE Stop: 10/02/16 14:59 Last Admin: 10/02/16 20:03 Dose: Not Given Ropivacaine 49.25 ml/Epinephrine HCl 0.5 mg/Clonidine HCl 80 mcg/ Sodium Chloride 100 mls @ 3,025.21 mls/hr INFILT ONETIME ONE Stop: 10/02/16 06:01 Lactated Ringer's (Ringers, Lactated) 1,000 mls @ 100 mls/hr IV ASDIRECTED [facility] Last Admin: 10/03/16 06:53 Dose: 100 mls/hr Cefazolin Sodium/Dextrose 2 gm (/ Premix) 50 mls @ 100 mls/hr IV ONCALL [facility] Sodium Chloride (Normal Saline) Confirm Administered Dose 20 mls @ as directed .ROUTE .STK-MED ONE Stop: 10/02/16 11:49 Cefazolin Sodium/Dextrose 2 gm (/ Premix) 50 mls @ 100 mls/hr IV Q8H [facility] Stop: 10/03/16 06:29 Last Admin: 10/03/16 05:30 Dose: 100 mls/hr Ketorolac Tromethamine (Toradol) 15 mg IVPUSH Q6H [facility] Stop: 10/03/16 03:01 Lidocaine (Xylocaine-Mpf 2%) Confirm Administered Dose 10 ml .ROUTE .STK-MED ONE Stop: 10/02/16 11:48 Midazolam HCl (Versed 1 Mg/Ml) Confirm Administered Dose 2 mg .ROUTE .STK-MED ONE Stop: 10/02/16 11:48 Morphine Sulfate (Morphine) 1 - 3 mg IVPUSH Q3H PRN PRN Reason: Pain Last Admin: 10/03/16 06:06 Dose: 3 mg Oxycodone HCl (Oxycontin) 20 mg PO ONARRIVE [facility] Last Admin: 10/02/16 12:13 Dose: 20 mg Propofol (Diprivan 20 Ml) Confirm Administered Dose 400 mg .ROUTE .STK-MED ONE Stop: 10/02/16 11:48 Propofol (Diprivan 20 Ml) Confirm Administered Dose 200 mg .ROUTE .STK-MED ONE Stop: 10/02/16 11:55 Tranexamic Acid (Cyklokapron) 4,000 mg IV SEECOMMENT [facility] Tranexamic Acid (Cyklokapron) Confirm Administered Dose 4,000 mg .ROUTE .STK- MED ONE Stop: 10/02/16 07:27 Tranexamic Acid (Cyklokapron) Confirm Administered Dose 1,000 mg .ROUTE .STK- MED ONE Stop: 10/02/16 07:29 Tranexamic Acid (Cyklokapron) Confirm Administered Dose 3,000 mg .ROUTE .STK- MED ONE Stop: 10/02/16 10:17 Tranexamic Acid (Cyklokapron) Confirm Administered Dose 4,000 mg .ROUTE .STK- MED ONE Stop: 10/02/16 13:03 - Exam General: alert, oriented, cooperative Neck: supple, no JVD Lungs: Clear to auscultation, Normal respiratory effort Cardiovascular: Regular Rate, Regular Rhythm Abdomen: bowel sounds present, soft, no tenderness, no distension Extremities: normal pulses, edema (trace edema to BLE.) Wound/Incisions: dressing dry and intact Neurological: no new focal deficit Psy/Mental Status: alert, normal affect, normal mood Consult PN Assessment/Plan Procedures: Procedures AIRWAY INHALATION TREATMENT (04/13/15) ALANINE AMINO (ALT) (SGPT) (11/02/14) ASSAY OF NATRIURETIC PEPTIDE (04/23/15) C-REACTIVE PROTEIN (04/13/15) CARDIAC REHAB/MONITOR (11/03/15) CHEST X-RAY 2VW FRONTAL&LATL (09/14/16) COLONOSCOPY AND BIOPSY (12/04/14) COMPLETE CBC AUTOMATED (09/14/16) COMPLETE CBC W/AUTO DIFF WBC (08/30/15) COMPREHEN METABOLIC PANEL (04/13/15) CT THORAX W/O DYE (06/24/15) DRAIN/INJ JOINT/BURSA W/O US (01/04/16) ELECTROCARDIOGRAM TRACING (09/14/16) EMERGENCY DEPT VISIT (04/13/15) EMERGENCY DEPT VISIT (04/13/15) EVALUATE PT USE OF INHALER (04/13/15) EVALUATION OF WHEEZING (05/03/15) HYDRATE IV INFUSION ADD-ON (04/13/15) LIPID PANEL (04/28/16) METABOLIC PANEL TOTAL CA (09/14/16) MRI JNT OF LWR EXTRE W/O DYE (09/06/16) OFFICE/OUTPATIENT VISIT EST (09/14/16) OFFICE/OUTPATIENT VISIT EST (09/13/15) OFFICE/OUTPATIENT VISIT EST (11/02/14) OFFICE/OUTPATIENT VISIT NEW (11/24/14) OFFICE/OUTPATIENT VISIT NEW (03/05/14) POLYSOM 6/>YRS CPAP 4/> PARM (10/13/15) PPSV23 VACC 2 YRS+ SUBQ/IM (11/02/14) PROTHROMBIN TIME (09/14/16) ROUTINE VENIPUNCTURE (09/14/16) THER/PROPH/DIAG INJ IV PUSH (04/13/15) URINALYSIS AUTO W/O SCOPE (09/14/16) URINALYSIS AUTO W/SCOPE (05/03/16) X-RAY EXAM KNEE 4 OR MORE (08/31/16) (1) COPD (chronic obstructive pulmonary disease) SNOMED Code(s): 32266499 Code(s): J44.9 - CHRONIC OBSTRUCTIVE PULMONARY DISEASE, UNSPECIFIED Current Visit: Yes Qualifiers: Chronic bronchitis type: unspecified (2) HTN (hypertension) SNOMED Code(s): 95393306 Code(s): I10 - ESSENTIAL (PRIMARY) HYPERTENSION Current Visit: Yes Qualifiers: Hypertension type: essential hypertension Qualified Code(s): I10 - Essential (primary) hypertension (3) CAD (coronary artery disease) SNOMED Code(s): 14434919 Code(s): I25.10 - ATHSCL HEART DISEASE OF [place] CORONARY ARTERY W/O ANG PCTRS Current Visit: Yes Qualifiers: Coronary Disease-Associated Artery/Lesion type: [place] artery [place] vs. transplanted heart: [place] heart Associated angina: without angina Qualified Code(s): I25.10 - Atherosclerotic heart disease of [place] coronary artery without angina pectoris (4) DAREN on CPAP SNOMED Code(s): 92772969 Code(s): G47.33 - OBSTRUCTIVE SLEEP APNEA (ADULT) (PEDIATRIC); Z99.89 - DEPENDENCE ON OTHER ENABLING MACHINES AND DEVICES Current Visit: Yes (5) Obesity, morbid, BMI 50 or higher SNOMED Code(s): 119056944, 322136472 Code(s): E66.01 - MORBID (SEVERE) OBESITY DUE TO EXCESS CALORIES Current Visit: Yes Problem List Initiated/Reviewed/Updated: Yes My Orders last 24 hours: My Active Orders 10/05/16 05:00 BMP [BASIC METABOLIC PANEL,BMP] [CHEM] DAILY CBC WITH AUTO DIFF [HEME] DAILY Plan: This 70 year old male admitted with L TKA, Hospitalist service consulted for medical management of HTN, CAD, COPD 1. HTN: Continue Diltiazem. BP well controlled, BMP WNL. 2. CAD: Continue Rousvastatin, ASA and Plavix. 3. COPD: Continue Advair, Montelukast and Proventil. Encourage IS use. 4. DAREN: CPAP at bedside. VTE: Per Orthopedics. Ok to discharge per Hospitalist team. No changes to home medications. F/U with PCP PRN.
--- NOTE | 2016-10-04 11:49 | PCM.SN ---
- Free Text/Narrative Note: pt ready for discharge will require FWW after L TKA for stability/mobility/ambulation assistance until improved LLE strength and gait stability. single point cane will not provide sufficient stability/assistance post-operatively. d/ch summary #[id number]
[2016-10-04 11:53] VITALS: BP 131/71
--- NOTE | 2016-10-04 14:02 | PCM.SN ---
- Free Text/Narrative Note: Patient seen and examined. AGree with Gene note. Patient sitting up in chair. STates pain is well controlled. Progressing well with PT. Dressing changed earlier--dry/intact. NVI. Will plan to d/charge home later today. Continue with outpatient PT. Will f/u at 2 week point. 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 He remained on ASA 81mg po daily. Will change to ASA 325mg po bid for DVT prophylaxis. patient informed and agrees with plan.
--- NOTE | 2016-10-09 07:50 | DISCH ---
DATE OF DISCHARGE: 10/04/2016 PRIMARY CARE PHYSICIAN: Anthony Cain M.D. ADMITTING DIAGNOSIS: Degenerative joint disease, left knee, tricompartmental. OTHER MEDICAL DIAGNOSES: 1. Coronary artery disease. 2. History of coronary artery stent placement. 3. Hypertension. 4. Hypercholesterolemia. 5. Obstructive sleep apnea, on continuous positive airway pressure. 6. Prostate nodule. 7. Urinary frequency. DISCHARGE DIAGNOSES: 1. Degenerative joint disease, left knee, tricompartmental. 2. Coronary artery disease. 3. History of coronary artery stent placement. 4. Hypertension. 5. Hypercholesterolemia. 6. Obstructive sleep apnea, on continuous positive airway pressure. 7. Prostate nodule. 8. Urinary frequency. 9. Acute post hemorrhagic anemia. BRIEF HISTORY: Donell is a 70-year-old male, who has had progressive complaints of left knee pain. He has tried and failed conservative treatment. At that time, surgical treatment was recommended. On October 02, 2016, the patient underwent a left total knee arthroplasty using patient-specific instrumentation done by Dr. Edith Elias. Estimated blood loss was 50 mL. Tourniquet time . There were no known complications. Upon completion of the procedure, the patient was transferred to the PACU and subsequently to Med/Surg for postoperative care. HOSPITAL COURSE: Postoperatively, the patient did well. Hospitalist consult was obtained upon admission to the Floor for management of his medical comorbidities. Physical therapy followed him through his hospital stay. We did resume his home Plavix and 81 mg aspirin on postoperative day #1 as DVT prophylaxis. His vital signs have been stable. He has been afebrile. His hemoglobin on the morning of October 04 was 12.1. At this time, the patient is doing well. His pain is well controlled with oral pain medications. He is tolerating oral intake. He is ambulating well with a front-wheeled walker. He feels comfortable for discharge to home. He will be discharged on Aspirin 325mg by mouth twice daily for six weeks as DVT prophylaxis. DISCHARGE MEDICATIONS: 1. OxyContin 20 mg. 2. Oxycodone 5 mg. 3. Tylenol Extra Strength 500 mg. 4. Colace 100 mg. 5. Aspirin 325mg. DISCHARGE INSTRUCTIONS: 1. Follow up in clinic 10 to 14 days from the date of procedure. This appointment has been made for the patient. 2. Outpatient physical therapy 2 to 3 times per week for 4 to 6 weeks. 3. He is to change his dressing on Saturday, October 08, 2016. He should place a new Aquacel dressing and leave that in place until followup on October 12, 2016. 4. He should not drive while taking narcotic pain medications. 5. JESS hose on in the morning, off in the evening. 6. Polar Care to the left knee as needed. 7. He requires a front wheeled walker for ambulation assistance, stability, and mobility until he regains left lower extremity strength, stability, and mobility. A single point cane does not provide sufficient stability and assistance post-operatively. For complete medication reconciliation and discharge instructions, please refer back to the patient's EHR. Should you have questions or concerns prior to followup, he has been advised to return to clinic or call. KATTY MATHEW /[id number] CLAUDIO
== END 2016-10-04 14:00 | disposition home or self-care (01) | DRG 470 ==
LOC: MW.MS 11:04
PROVIDERS: ADMIT Orthopaedic Surgery; ATTEND Orthopaedic Surgery
PROC: 0SRD0J9 Replacement of Left Knee Joint with Synthetic Substitute, Cemented, Open Approach (ICD-10-PCS; principal; 2016-10-02)
DX: M17.12 Unilateral primary osteoarthritis, left knee (principal); Z68.43 Body mass index [BMI] 50.0-59.9, adult; M94.262 Chondromalacia, left knee; I25.10 Atherosclerotic heart disease of native coronary artery without angina pectoris; I10 Essential (primary) hypertension; J44.9 Chronic obstructive pulmonary disease, unspecified; G47.33 Obstructive sleep apnea (adult) (pediatric); E78.00 Pure hypercholesterolemia, unspecified; E66.01 Morbid (severe) obesity due to excess calories; Z79.82 Long term (current) use of aspirin; Z79.899 Other long term (current) drug therapy; Z95.5 Presence of coronary angioplasty implant and graft
CPT/HCPCS: 01402; 36415; 73560-26-LT; 73560-LT; 80048; 80053; 85025; 86850; 86900; 86901; 88305; 88311; 94640; 94664; 97110-GP; 97116-GP; 97161-GP; 97530-GP; A9270-GY; C1713; C1776; J0171; J0690; J0735; J1170; J2250; J2270; J2704; J2795; J3010; J7050; J7120

== ENCOUNTER 2018-02-01 10:08 | Day surgery (SDC) | payer MEDICARE, OTHER ==
[~2018-02-01 10:08] MED LIST changes: -Acetaminophen 500 MG Tab PO SCH; -Famotidine 20 MG/2 ML SDV IVPUSH SCH; +Lactated Ringers 1,000 ML IV SCH; +Lidocaine 2% 5 ML SDV ONE; +Propofol 200 MG/20 ML SDV ONE; -Ropivacaine 49.25 ML, EPINEPHrine 0.5 MG, cloNIDine 80 MCG in Sodium Chloride 0.9% 49.4... INFILT ONE; -Scopolamine 1.5 MG Transdermal Patch TRDERM SCH; -ceFAZolin 2 GM in Premix Bag 1 BAG IV SCH; +fentaNYL 100 MCG/2 ML SDV ONE; -oxyCODONE ER 20 MG TAB.ER PO SCH
--- NOTE | 2018-02-01 10:49 | PCM.PREANE ---
Preanesthetic Assessment - Anesthesia/Transfusion/Family Hx Anesthesia History: Prior Anesthesia Without Reaction Other Type of Anesthesia Reaction Comment: Denies any known problem in past Family History of Anesthesia Reaction: No Transfusion History: No Prior Transfusion(s) Intubation History: History of Difficulty Intubation - Review of Systems General: No Symptoms Cardiovascular: No Symptoms Gastrointestinal: No Symptoms Neurological: No Symptoms Other: Reports: None - Physical Assessment NPO Status Date: 01/31/18 Height: 1.83 m Weight: 157.85 kg ASA Class: 3 Mental Status: Alert & Oriented x3 Airway Class: Mallampati = 2 Dentition: Reports: Normal Dentition ROM/Head Extension: Full Lungs: Clear to Auscultation, Normal Respiratory Effort Cardiovascular: Regular Rate, Regular Rhythm - Allergies Allergies/Adverse Reactions: Allergies Allergy/AdvReac Type Severity Reaction Status Date / Time house dust Allergy Shortness Verified 01/29/18 09:21 of Breath - Anesthesia Plan Pre-Op Medication Ordered: None - Acknowledgements Anesthesia Type Planned: MAC Pt an Appropriate Candidate for the Planned Anesthesia: Yes Alternatives and Risks of Anesthesia Discussed w Pt/Guardian: Yes Pt/Guardian Understands and Agrees with Anesthesia Plan: Yes Additional Comments: PMH: CAD-s/p stent- last dose of ASA was yesterday, COPD- no home O2, on home nebulizer and MDIs, DAREN-uses CPAP at night and during daytime naps, HTN, HLD, BPH PLAN: MAC with propofol, may need oral airway PreAnesthesia Questionnaire HEENT History: Reports: Hard of Hearing Other HEENT History: wears glasses, has bilateral hearing aides Cardiovascular History: Reports: CAD, High Cholesterol, Hypertension Other Cardiovascular History: stents x 2 in Jul 2015 Respiratory History: Reports: Asthma, COPD, Sleep Apnea Other Respiratory History: uses CPAP Gastrointestinal History: Reports: Colon Polyp, Diverticulosis, Other (See Below ) Other Gastrointestinal History: occasional heartburn- uses OTC Tums Genitourinary History: Reports: BPH. Denies: Chronic Renal Insuffiency Musculoskeletal History: Reports: Arthritis, Fracture Neurological History: Reports: None. Denies: CVA, TIA Psychiatric History: Reports: None Endocrine/Metabolic History: Reports: Obesity/BMI 30+ Hematologic History: Reports: None Immunologic History: Reports: None Oncologic (Cancer) History: Reports: None Dermatologic History: Reports: None - Infectious Disease History Infectious Disease History: Reports: Chicken Pox, Measles, Mumps - Past Surgical History Head Surgeries/Procedures: Reports: None Cardiovascular Surgical History: Reports: Coronary Artery Stent Other Cardiovascular Surgeries/Procedures: angioplasty with cardiac stents x2 GI Surgical History: Reports: Colonoscopy Musculoskeletal Surgical History: Reports: Knee Replacement, ORIF, Shoulder Surgery Other Musculoskeletal Surgeries/Procedures:: left TKA, Shrapnel removed from shoulder, ORIF left thumb (no hardware) - SUBSTANCE USE Smoking Status *Q: Never Smoker Recreational Drug Use History: No - HOME MEDS Home Medications: Home Meds Rosuvastatin [Crestor] 10 mg PO DAILY 12/02/14 [History] Albuterol Sulfate 1 vial INH Q4HR PRN 09/28/16 [History] Albuterol Sulfate [Proair Hfa] 2 puff INH QID PRN 09/28/16 [History] Diltiazem HCl [Diltiazem 24Hr ER] 300 mg PO QAM 09/28/16 [History] Fluticasone Propionate [Flonase] 1 spray NASBOTH DAILY 09/28/16 [History] Loratadine [Claritin] 10 mg PO DAILY 09/28/16 [History] Montelukast Sodium 10 mg PO BEDTIME 09/28/16 [History] Multivitamin [Men's Multi-Vitamin] 1 tab PO DAILY 09/28/16 [History] Potassium 1 tab PO DAILY 09/28/16 [History] Tamsulosin HCl [Flomax] 0.4 mg PO DAILY 09/28/16 [History] Ubidecarenone/[place]-3/Vit E [Co Q-10-Vit E-Fish Oil Sfgl] 1 cap PO DAILY [History] Aspirin [Adult Low Dose Aspirin EC] 81 mg PO DAILY 01/29/18 [History] Budesonide/Formoterol Fumarate [Symbicort 160-4.5 Mcg Inhaler] 2 puff INH BID [History] Furosemide 20 mg PO DAILY 01/29/18 [History] Red Yeast Rice Extract 600 mg PO BID 01/29/18 [History] - CURRENT (IN HOUSE) MEDS Current Meds: Current Medications Lactated Ringer's (Ringers, Lactated) 1,000 mls @ 125 mls/hr IV ASDIRECTED [facility] Discontinued Medications Fentanyl (Sublimaze) Confirm Administered Dose 100 mcg .ROUTE .STK-MED ONE Stop: 02/01/18 09:57 Lidocaine (Xylocaine-Mpf 2%) Confirm Administered Dose 5 ml .ROUTE .STK-MED ONE Stop: 02/01/18 09:57 Propofol (Diprivan 20 Ml) Confirm Administered Dose 400 mg .ROUTE .STK-MED ONE Stop: 02/01/18 09:57
[2018-02-01] MEDS ORDERED: Propofol 200 MG/20 ML SDV ONE ×2 (10:50→12:03)
[2018-02-01] MEDS ORDERED: Glycopyrrolate 0.2 MG/ML SDV ONE (11:52)
--- NOTE | 2018-02-01 12:18 | PCM.OPNOTE ---
- General Post-Op/Procedure Note Date of Surgery/Procedure: 02/01/18 Operative Procedure(s): Colonoscopy with cold ascending colon polypectomy Pre Op Diagnosis: Personal history of colon polyps Post-Op Diagnosis: Ascending colon polyp. Sigmoid diverticulosis. Anesthesia Technique: MAC (ASA III) Primary Surgeon: Victor M Torres Condition: Good Free Text/Narrative:: DICTATION [id number] CPT CODE [id number]
[2018-02-01] MEDS ORDERED: Lactated Ringers 1,000 ML IV SCH (12:30)
--- NOTE | 2018-02-01 12:35 | OR ---
SURGEON: Victor M Torres M.D. DATE OF PROCEDURE: 02/01/2018 OPERATION PERFORMED: Colonoscopy with cold ascending colon polypectomy. ANESTHESIA: MAC. ASA CLASSIFICATION: III. PREOPERATIVE DIAGNOSES: 1. Personal history of colon polyps. 2. History of diverticulosis. POSTOPERATIVE DIAGNOSES: 1. Ascending colon polyp. 2. Sigmoid diverticulosis. DESCRIPTION OF PROCEDURE: The patient was taken to the endoscopy room and positioned on the endoscopy table in the left lateral decubitus position. Time-out was called for appropriate identification of the patient and procedure. Monitored anesthesia care was provided. The colonoscope was inserted into the rectum and advanced with moderate difficulty to the cecum where the colonoscope was retroflexed to visualize the ascending colon from below. The colonoscope was then straightened and slowly withdrawn. Polyp was encountered in the ascending colon and removed with multiple bites of the cold biopsy forceps. The remainder of the ascending colon, hepatic flexure, transverse colon, splenic flexure, and descending colon showed no tumors, polyps, diverticula, angiodysplasia or inflammatory bowel disease. Sigmoid colon demonstrates moderate diverticular change. No stricture, spasm, or bleeding was noted. No polyps were encountered. The colonoscope was then withdrawn to the rectum and retroflexed to visualize the anal orifice from above. Again, no tumors or polyps were seen. There were no acute hemorrhoidal changes. The colonoscope was then straightened, the rectum aspirated, and the colonoscope removed. The patient tolerated the procedure well and was taken to recovery room in satisfactory condition. NATI / PRIYANKA /[id number]
--- NOTE | 2018-02-01 13:01 | PCM.POSTAN ---
POST ANESTHESIA ASSESSMENT - MENTAL STATUS Mental Status: Alert, Oriented - RESPIRATORY Respiratory Status: Respiratory Rate WNL, Airway Patent, O2 Saturation Stable - CARDIOVASCULAR CV Status: Pulse Rate WNL, Blood Pressure Stable - GASTROINTESTINAL GI Status: No Symptoms - POST OP HYDRATION Hydration Status: Adequate & Stable
--- NOTE | 2018-02-01 13:02 | PCM48HPAN ---
Post Anesthesia Note - EVALUATION WITHIN 48HRS OF ANESTHETIC Vital Signs in Normal Range: Yes Patient Participated in Evaluation: Yes Respiratory Function Stable: Yes Airway Patent: Yes Cardiovascular Function Stable: Yes Hydration Status Stable: Yes Pain Control Satisfactory: Yes Nausea and Vomiting Control Satisfactory: Yes Mental Status Recovered: Yes Resp Rate: 16
[2018-02-01 13:57] VITALS: BP 129/72
== END 2018-02-01 13:15 | disposition home or self-care (01) ==
LOC: MW.SDS 10:08
PROVIDERS: ATTEND Surgery
DX: Z12.11 Encounter for screening for malignant neoplasm of colon (principal); D12.2 Benign neoplasm of ascending colon; K57.30 Diverticulosis of large intestine without perforation or abscess without bleeding; I10 Essential (primary) hypertension; I25.10 Atherosclerotic heart disease of native coronary artery without angina pectoris; J45.40 Moderate persistent asthma, uncomplicated; J90 Pleural effusion, not elsewhere classified; G47.33 Obstructive sleep apnea (adult) (pediatric); Z99.89 Dependence on other enabling machines and devices; M17.12 Unilateral primary osteoarthritis, left knee; E78.00 Pure hypercholesterolemia, unspecified; E66.01 Morbid (severe) obesity due to excess calories; Z68.42 Body mass index [BMI] 45.0-49.9, adult; Z79.82 Long term (current) use of aspirin; Z79.899 Other long term (current) drug therapy; Z91.048 Other nonmedicinal substance allergy status; Z98.890 Other specified postprocedural states; Z86.010 Personal history of colon polyps
CPT/HCPCS: 88305; J2704; J3010; J3490; J7120

== ENCOUNTER 2018-10-21 06:41 | Inpatient (IN) | payer MEDICARE, OTHER ==
[~2018-10-21 06:41] MED LIST changes: +Famotidine 20 MG/2 ML SDV IVPUSH SCH; -Lactated Ringers 1,000 ML IV SCH; -Lidocaine 2% 5 ML SDV ONE; -Propofol 200 MG/20 ML SDV ONE; +Scopolamine 1.5 MG Transdermal Patch TRDERM SCH; -fentaNYL 100 MCG/2 ML SDV ONE
[2018-10-21] MEDS ORDERED: Propofol 200 MG/20 ML SDV ONE ×2 (07:10→08:50)
[2018-10-21] MEDS ORDERED: Midazolam 1 MG/ML 2 ML SDV ONE ×2 (07:10→09:41)
[2018-10-21] MEDS ORDERED: fentaNYL 100 MCG/2 ML SDV ONE (07:10)
[2018-10-21] MEDS ORDERED: Lidocaine 2% 5 ML SDV ONE (07:10)
[2018-10-21] MEDS: Lactated Ringers 1,000 ML IV SCH ×2 (07:20→17:26)
[2018-10-21] MEDS: Acetaminophen 1,000 MG in Premix Bag 1 BAG IV SCH ×4 (07:28→22:26)
[2018-10-21] MEDS ORDERED: Ropivacaine 49.25 ML, Ketorolac 30 MG, EPINEPHrine 0.5 MG, cloNIDine 80 MCG in Sodium C... INJECT SCH (08:00)
[2018-10-21] MEDS ORDERED: Tranexamic Acid 2,000 MG in Sodium Chloride 0.9% 100 ML IV SCH (08:00)
[2018-10-21] MEDS ORDERED: ceFAZolin 2 GM in Premix Bag 1 BAG IV SCH (08:00)
--- NOTE | 2018-10-21 08:13 | PCM.PREANE ---
Preanesthetic Assessment - Anesthesia/Transfusion/Family Hx Anesthesia History: Prior Anesthesia Without Reaction Other Type of Anesthesia Reaction Comment: Denies any known problem in past Family History of Anesthesia Reaction: No Transfusion History: No Prior Transfusion(s) Intubation History: History of Difficulty Intubation - Review of Systems General: No Symptoms Pulmonary: No Symptoms Cardiovascular: No Symptoms Gastrointestinal: No Symptoms Neurological: No Symptoms Other: Reports: None - Physical Assessment NPO Status Date: 10/21/18 NPO Status Time: 05:00 O2 Sat by Pulse Oximetry: 96 Respiratory Rate: 18 Vital Signs: Last Vital Signs Temp 97.3 F 10/21/18 06:55 Pulse 86 10/21/18 06:55 Resp 18 10/21/18 06:55 BP 146/80 H 10/21/18 06:55 Pulse Ox 96 10/21/18 06:55 Height: 6 ft 2 in Weight: 159.665 kg ASA Class: 3 Mental Status: Alert & Oriented x3 Airway Class: Mallampati = 2 Dentition: Reports: Normal Dentition ROM/Head Extension: Full Lungs: Clear to Auscultation, Normal Respiratory Effort Cardiovascular: Regular Rate, Regular Rhythm - Lab Values: Laboratory Last Values Blood Type O POSITIVE 10/21/18 07:13 Antibody Screen NEGATIVE 10/21/18 07:13 - Allergies Allergies/Adverse Reactions: Allergies Allergy/AdvReac Type Severity Reaction Status Date / Time house dust Allergy Shortness Verified 01/29/18 09:21 of Breath - Blood Blood Available: No - Anesthesia Plan Pre-Op Medication Ordered: Other (per surgeon) - Acknowledgements Anesthesia Type Planned: Spinal Pt an Appropriate Candidate for the Planned Anesthesia: Yes Alternatives and Risks of Anesthesia Discussed w Pt/Guardian: Yes Pt/Guardian Understands and Agrees with Anesthesia Plan: Yes Additional Comments: PMH: cad s/p stents, copd, lavon uses cpap, htn, MO PLAN: spinal with sedation PreAnesthesia Questionnaire HEENT History: Reports: Hard of Hearing, Other (See Below) Other HEENT History: wears glasses, has bilateral hearing aides Cardiovascular History: Reports: High Cholesterol, Hypertension, Stents Other Cardiovascular History: stents x 2 in Jul 2015 Respiratory History: Reports: Asthma, COPD, Sleep Apnea, SOB Other Respiratory History: uses CPAP Gastrointestinal History: Reports: Colon Polyp, Diverticulosis, Other (See Below ) Other Gastrointestinal History: was told he had an abdominal hernia on his left side Genitourinary History: Reports: BPH Musculoskeletal History: Reports: Fracture, Osteoarthritis Other Musculoskeletal History: hx of fx thumb Neurological History: Reports: None Psychiatric History: Reports: None Endocrine/Metabolic History: Reports: Obesity/BMI 30+ Hematologic History: Reports: None Immunologic History: Reports: None Oncologic (Cancer) History: Reports: None Dermatologic History: Reports: None - Infectious Disease History Infectious Disease History: Reports: Chicken Pox, Measles, Mumps - Past Surgical History Head Surgeries/Procedures: Reports: None HEENT Surgical History: Reports: Tonsillectomy Cardiovascular Surgical History: Reports: Coronary Artery Stent Other Cardiovascular Surgeries/Procedures: hx of Angioplasty with 2 stents placed, denies chest pain now Respiratory Surgical History: Reports: None GI Surgical History: Reports: Colonoscopy Male Surgical History: Reports: None Endocrine Surgical History: Reports: None Neurological Surgical History: Reports: None Musculoskeletal Surgical History: Reports: Knee Replacement, ORIF, Other (See Below) Other Musculoskeletal Surgeries/Procedures:: hx of left TKA, hx of ORIF fx thumb (no hardware), hx of repair of traumatic injury to shoulder Dermatological Surgical History: Reports: None - SUBSTANCE USE Smoking Status *Q: Never Smoker Recreational Drug Use History: No - HOME MEDS Home Medications: Home Meds Rosuvastatin [Crestor] 10 mg PO ASDIRECTED 12/02/14 [History] Albuterol Sulfate 1 vial INH Q4HR PRN 09/28/16 [History] Albuterol Sulfate [Proair Hfa] 2 puff INH QID PRN 09/28/16 [History] Diltiazem HCl [Diltiazem 24Hr ER] 300 mg PO QAM 09/28/16 [History] Fluticasone Propionate [Flonase] 1 spray NASBOTH DAILY 09/28/16 [History] Loratadine [Claritin] 10 mg PO DAILY 09/28/16 [History] Montelukast Sodium 10 mg PO BEDTIME 09/28/16 [History] Tamsulosin HCl [Flomax] 0.4 mg PO BEDTIME 09/28/16 [History] Ubidecarenone/[place]-3/Vit E [Co Q-10-Vit E-Fish Oil Sfgl] 1 cap PO DAILY [History] Aspirin [Adult Low Dose Aspirin EC] 81 mg PO DAILY 01/29/18 [History] Furosemide 20 mg PO DAILY 01/29/18 [History] Red Yeast Rice Extract 600 mg PO BID 01/29/18 [History] Budesonide/Formoterol [Symbicort 160-4.5 MCG] 2 puff INH BID 10/17/18 [History] Nabumetone 1,000 mg PO DAILY 10/17/18 [History] - CURRENT (IN HOUSE) MEDS Current Meds: Current Medications Famotidine (Pepcid) 40 mg IVPUSH ONARRIVE [facility] Last Admin: 10/21/18 07:24 Dose: 40 mg Acetaminophen 1,000 mg/ Premix 100 mls @ 400 mls/hr IV ONARRIVE ANGELA Last Admin: 10/21/18 07:28 Dose: 400 mls/hr Cefazolin Sodium/Dextrose 2 gm (/ Premix) 50 mls @ 100 mls/hr IV ONCALL ANGELA Ropivacaine 49.25 ml/Ketorolac Tromethamine 30 mg/Epinephrine HCl 0.5 mg/ Clonidine HCl 80 mcg/ Sodium Chloride 75 mls @ 50 mls/sec INJECT ASDIRECTED ANGELA Lactated Ringer's (Ringers, Lactated) 1,000 mls @ 100 mls/hr IV ASDIRECTED [facility] Last Admin: 10/21/18 07:20 Dose: 100 mls/hr Tranexamic Acid 2,000 mg/ (Sodium Chloride) 120 mls @ 600 mls/hr IV ASDIRECTED ANGELA Scopolamine (Transderm-Scop) 1.5 mg TRDERM ONARRIVE [facility] Last Admin: 10/21/18 07:31 Dose: 1.5 mg Discontinued Medications Fentanyl (Sublimaze) Confirm Administered Dose 100 mcg .ROUTE .STK-MED ONE Stop: 10/21/18 07:11 Lidocaine (Xylocaine-Mpf 2%) Confirm Administered Dose 5 ml .ROUTE .STK-MED ONE Stop: 10/21/18 07:11 Midazolam HCl (Versed 1 Mg/Ml) Confirm Administered Dose 2 mg .ROUTE .STK-MED ONE Stop: 10/21/18 07:11 Propofol (Diprivan 20 Ml) Confirm Administered Dose 400 mg .ROUTE .STK-MED ONE Stop: 10/21/18 07:11 Tranexamic Acid (Cyklokapron) Confirm Administered Dose 2,000 mg .ROUTE .STK- MED ONE Stop: 10/21/18 07:55
[2018-10-21] MEDS ORDERED: ceFAZolin 1 GM Vial ONE (08:30)
[2018-10-21] MEDS ORDERED: Sodium Chloride 0.9% 20 ML ONE (08:30)
[2018-10-21] MEDS ORDERED: ePHEDrine 50 MG/ML SDV ONE (08:40)
[2018-10-21] MEDS ORDERED: HYDROmorphone 1 MG/ML Syringe IVPUSH PRN ×2 (09:48→10:08)
[2018-10-21] MEDS ORDERED: Docusate Sodium 100 MG Cap PO PRN (09:48)
[2018-10-21] MEDS ORDERED: diphenhydrAMINE 25 MG Cap PO PRN (09:48)
[2018-10-21] MEDS ORDERED: Bisacodyl 10 MG Supp RECTAL PRN (09:48)
[2018-10-21] MEDS ORDERED: Aluminum Hydroxide/Magnesium Hydroxide/Simethicone Susp 30 ML Cup PO PRN (09:48)
[2018-10-21] MEDS ORDERED: Sodium Chloride 0.9% 2.5 ML Syringe FLUSH PRN (09:48)
[2018-10-21] MEDS ORDERED: Sodium Chloride 0.9% 10 ML Syringe FLUSH PRN (09:48)
[2018-10-21] MEDS ORDERED: Ondansetron 4 MG/2 ML SDV IVPUSH PRN ×2 (09:48→10:08)
[2018-10-21] MEDS ORDERED: Albuterol 0.083% 2.5 MG/3 ML Neb Soln NEB PRN ×2 (09:52→10:08)
[2018-10-21] MEDS ORDERED: Albuterol 8 GM Inhaler INH PRN (09:52)
[2018-10-21] MEDS ORDERED: Rosuvastatin 10 MG Tab PO SCH (10:00)
--- NOTE | 2018-10-21 10:04 | PCM.OPNOTE ---
- General Post-Op/Procedure Note Date of Surgery/Procedure: 10/21/18 Operative Procedure(s): R TKA Post-Op Diagnosis: DJD R knee Anesthesia Technique: Moderate Sedation, Spinal Primary Surgeon: Edith Elias Wood Craftsman: Leslie [place] Wood Craftsman: Shakira Baird EBL in mLs: 50 Condition: Good Free Text/Narrative:: tt=51 min Intake & Output #[id number] 10/20/18 10/21/18 10/21/18 22:59 06:59 14:59 Output Total 100 Balance -100
[2018-10-21] MEDS ORDERED: fentaNYL 100 MCG/2 ML SDV IVPUSH PRN (10:08)
[2018-10-21] MEDS ORDERED: Scopolamine 1.5 MG Transdermal Patch TRDERM PRN (10:08)
[2018-10-21] MEDS ORDERED: Morphine 4 MG/ML Syringe IVPUSH PRN (10:08)
[2018-10-21] MEDS ORDERED: Atropine 0.1 MG/ML 10 ML Syringe IVPUSH PRN (10:08)
[2018-10-21] MEDS ORDERED: Metoclopramide 10 MG/2 ML SDV IVPUSH PRN (10:08)
[2018-10-21] MEDS ORDERED: Meperidine PF 25 MG/ML Syringe IV PRN (10:08)
[2018-10-21] MEDS ORDERED: hydrALAZINE 20 MG/ML SDV IVPUSH PRN ×2 (10:08)
[2018-10-21] MEDS ORDERED: Promethazine 25 MG/ML SDV IM PRN (10:08)
[2018-10-21] MEDS ORDERED: Acetaminophen/HYDROcodone 325-5 MG Tab PO PRN (10:08)
[2018-10-21] MEDS ORDERED: Labetalol 20 MG/4 ML Syringe IVPUSH PRN (10:08)
[2018-10-21] MEDS ORDERED: Naloxone 0.4 MG/ML Syringe IVPUSH PRN (10:08)
[2018-10-21] MEDS ORDERED: Meperidine PF 25 MG/ML Syringe IVPUSH PRN (10:08)
[2018-10-21 11:42] LABS: CHLORIDE,CL 105 mmol/L (98-107); SODIUM,NA 139 mmol/L (136-148)
[2018-10-21] MEDS: oxyCODONE 5 MG Tab PO PRN ×2 (12:45→17:24)
[2018-10-21] MEDS ORDERED: Acetaminophen 1,000 MG in Premix Bag 1 BAG IV SCH (13:00)
--- NOTE | 2018-10-21 13:10 | CR ---
EXAMINATION: Right knee HISTORY: Arthroplasty COMPARISON: 08/22/2018 TECHNIQUE: 2 views FINDINGS/IMPRESSION: Right total knee hardware is demonstrated in good position and alignment. Postoperative soft tissues changes are noted.
--- NOTE | 2018-10-21 13:14 | PCM.CONS ---
H&P History of Present Illness - General Date of Service: 10/21/18 Admit Problem/Dx: Admission Diagnosis/Problem Admission Diagnosis/Problem Replacement of R total knee joint Source of Information: Patient, Old Records History Limitations: Reports: No Limitations - History of Present Illness Initial Comments - Free Text/Narative: This 72 year old male with pmh of CAD with PCI in 2016, HTN, COPD, DAREN with CPAP and obesity presented for R TKA with Dr Elias. Hospitalist service consulted for medical management. He arrived from PACU to the Medical floor. He is alert and oriented. He reports doing well, legs are slowly getting feeling back. He denies chest pain or palpitations. No dyspnea. He had L TKA 2 years ago and has done well since. No further cardiac concerns. He saw [facility] in June, Dr Moore, everything looked good. He continues to have dyspnea intermittently, which they feel is due to his COPD. He uses Proair rescue inhaler along with Symbicort BID. He also uses his CPAP nightly. Reports he was instructed he can take his statin every other day due to myalgias from statins. PCP, Dr Cain. Follows with both Cardiology and Pulmonology. - Related Data Allergies/Adverse Reactions: Allergies Allergy/AdvReac Type Severity Reaction Status Date / Time house dust Allergy Shortness Verified 01/29/18 09:21 of Breath Home Medications: Home Meds Rosuvastatin [Crestor] 10 mg PO Q2D 12/02/14 [History] Albuterol Sulfate 1 vial INH Q4HR PRN 09/28/16 [History] Albuterol Sulfate [Proair Hfa] 2 puff INH QID PRN 09/28/16 [History] Diltiazem HCl [Diltiazem 24Hr ER] 300 mg PO QAM 09/28/16 [History] Fluticasone Propionate [Flonase] 1 spray NASBOTH DAILY 09/28/16 [History] Loratadine [Claritin] 10 mg PO DAILY 09/28/16 [History] Montelukast Sodium 10 mg PO BEDTIME 09/28/16 [History] Tamsulosin HCl [Flomax] 0.4 mg PO BEDTIME 09/28/16 [History] Ubidecarenone/[place]-3/Vit E [Co Q-10-Vit E-Fish Oil Sfgl] 1 cap PO DAILY [History] Aspirin [Adult Low Dose Aspirin EC] 81 mg PO DAILY 01/29/18 [History] Furosemide 20 mg PO DAILY 01/29/18 [History] Red Yeast Rice Extract 600 mg PO BID 01/29/18 [History] Budesonide/Formoterol [Symbicort 160-4.5 MCG] 2 puff INH BID 10/17/18 [History] Nabumetone 1,000 mg PO DAILY 10/17/18 [History] Past Medical History HEENT History: Reports: Hard of Hearing, Other (See Below) Other HEENT History: wears glasses, has bilateral hearing aides Cardiovascular History: Reports: High Cholesterol, Hypertension, Stents. Denies : Heart Failure Other Cardiovascular History: stents x 2 in Jul 2015 Respiratory History: Reports: Asthma, COPD, Sleep Apnea, SOB Other Respiratory History: uses CPAP Gastrointestinal History: Reports: Colon Polyp, Diverticulosis, Other (See Below ) Other Gastrointestinal History: was told he had an abdominal hernia on his left side Genitourinary History: Reports: BPH Musculoskeletal History: Reports: Fracture, Osteoarthritis Other Musculoskeletal History: hx of fx thumb Neurological History: Reports: None Psychiatric History: Reports: None Endocrine/Metabolic History: Reports: Obesity/BMI 30+ Hematologic History: Reports: None Immunologic History: Reports: None Oncologic (Cancer) History: Reports: None Dermatologic History: Reports: None - Infectious Disease History Infectious Disease History: Reports: Chicken Pox, Measles, Mumps - Past Surgical History Head Surgeries/Procedures: Reports: None HEENT Surgical History: Reports: Tonsillectomy Cardiovascular Surgical History: Reports: Coronary Artery Stent Other Cardiovascular Surgeries/Procedures: hx of Angioplasty with 2 stents placed, denies chest pain now Respiratory Surgical History: Reports: None GI Surgical History: Reports: Colonoscopy Male Surgical History: Reports: None Endocrine Surgical History: Reports: None Neurological Surgical History: Reports: None Musculoskeletal Surgical History: Reports: Knee Replacement, ORIF, Other (See Below) Other Musculoskeletal Surgeries/Procedures:: hx of left TKA, hx of ORIF fx thumb (no hardware), hx of repair of traumatic injury to shoulder Dermatological Surgical History: Reports: None Social & Family History - Family History Cardiac: Reports: OR Endocrine/Metabolic: Reports: Other (See Below) Other Endocrine/Metabolic Family History: Diabetes, type unknown Dermatologic: Reports: Eczema Oncologic: Reports: Bone - Tobacco Use Smoking Status *Q: Never Smoker - Caffeine Use Caffeine Use: Reports: Coffee, Tea - Recreational Drug Use Recreational Drug Use: No Drug Use in Last 12 Months: No - Living Situation & Occupation Living situation: Reports: H&P Review of Systems - Review of Systems: Review Of Systems: See Below General: Reports: No Symptoms. Denies: Fever, Chills, Malaise, Weakness HEENT: Reports: No Symptoms. Denies: Headaches, Sinus Congestion, Sore Throat, Visual Changes Pulmonary: Reports: No Symptoms. Denies: Shortness of Breath Cardiovascular: Reports: No Symptoms. Denies: Chest Pain, Palpitations, Edema, Blood Pressure Problem Gastrointestinal: Reports: No Symptoms. Denies: Abdominal Pain, Black Stool, Bloody Stool, Nausea, Vomiting Genitourinary: Reports: No Symptoms Skin: Reports: No Symptoms Psychiatric: Reports: No Symptoms Neurological: Reports: No Symptoms Hematologic/Lymphatic: Reports: No Symptoms Immunologic: Reports: No Symptoms Exam - Exam Exam: See Below - Vital Signs Vital Signs: Last Vital Signs Temp 97.7 F 10/21/18 10:55 Pulse 64 10/21/18 10:55 Resp 18 10/21/18 10:55 BP 125/59 L 10/21/18 10:55 Pulse Ox 92 L 10/21/18 10:47 Weight: 159.665 kg - Exam General: Alert, Oriented, Cooperative Lungs: Clear to Auscultation, Normal Respiratory Effort Cardiovascular: Regular Rate, Regular Rhythm, Normal S1, Normal S2. No: Systolic Murmur GI/Abdominal Exam: Normal Bowel Sounds, Soft, Non-Tender Back Exam: Normal Inspection, Full Range of Motion Extremities: Normal Inspection, Normal Range of Motion, Non-Tender, Pedal Edema (+1 non pitting edema) Neuro Extensive - Mental Status: Alert, Oriented x3, Normal Mood/Affect Neuro Extensive - Motor, Sensory, Reflexes: CN II-XII Intact Psychiatric: Alert, Normal Affect, Normal Mood - Patient Data Lab Results Last 24 hrs: Laboratory Results - last 24 hr 10/21/18 10/21/18 10/21/18 Range/Units 07:13 11:17 11:17 WBC 5.28 (4.0-11.0) K/uL RBC 4.03 L (4.50-5.90) M/uL Hgb 13.0 (13.0-17.0) g/dL Hct 38.6 (38.0-50.0) % MCV 95.8 (80.0-98.0) fL MCH 32.3 H (27.0-32.0) pg MCHC 33.7 (31.0-37.0) g/dL RDW Std Deviation 46.0 (28.0-62.0) fl RDW Coeff of [place] 13 (11.0-15.0) % Plt Count 131 L (150-400) K/uL MPV 10.10 (7.40-12.00) fL Neut % (Auto) 80.5 H (48.0-80.0) % Lymph % (Auto) 9.5 L (16.0-40.0) % [place] % (Auto) 8.7 (0.0-15.0) % Eos % (Auto) 1.1 (0.0-7.0) % Baso % (Auto) 0.2 (0.0-1.5) % Neut # (Auto) 4.3 (1.4-5.7) K/uL Lymph # (Auto) 0.5 L (0.6-2.4) K/uL [place] # (Auto) 0.5 (0.0-0.8) K/uL Eos # (Auto) 0.1 (0.0-0.7) K/uL Baso # (Auto) 0.0 (0.0-0.1) K/uL Nucleated RBC % 0.0 /100WBC Nucleated RBCs # 0 K/uL Sodium 139 (136-148) mmol/L Potassium 4.3 (3.5-5.1) mmol/L Chloride 105 (98-107) mmol/L Carbon Dioxide 25.8 (21.0-32.0) mmol/L BUN 19 H (7.0-18.0) mg/dL Creatinine 1.1 (0.8-1.3) mg/dL Est Cr Clr Drug Dosing 71.61 mL/min Estimated GFR (MDRD) > 60.0 ml/min Glucose 140 H (74-106) mg/dL Calcium 8.4 L (8.5-10.1) mg/dL Blood Type O POSITIVE Antibody Screen NEGATIVE Result Diagrams: 10/21/18 11:17 10/21/18 11:17 Consult PN Assessment/Plan Procedures: Procedures AIRWAY INHALATION TREATMENT (10/02/16) ALANINE AMINO (ALT) (SGPT) (11/02/14) ASSAY OF NATRIURETIC PEPTIDE (04/23/15) BLOOD TYPING SEROLOGIC ABO (10/02/16) BLOOD TYPING SEROLOGIC RH(D) (10/02/16) C-REACTIVE PROTEIN (04/13/15) CARDIAC REHAB/MONITOR (11/03/15) CHEST X-RAY 2VW FRONTAL&LATL (09/14/16) COLONOSCOPY AND BIOPSY (02/01/18) COMPLETE CBC AUTOMATED (09/14/16) COMPLETE CBC W/AUTO DIFF WBC (10/02/16) COMPREHEN METABOLIC PANEL (10/02/16) CT ABD & PELV W/CONTRAST (06/01/17) CT THORAX W/O DYE (06/24/15) DRAIN/INJ JOINT/BURSA W/O US (01/04/16) ELECTROCARDIOGRAM TRACING (01/22/18) EMERGENCY DEPT VISIT (04/13/15) EMERGENCY DEPT VISIT (04/13/15) EVALUATE PT USE OF INHALER (10/02/16) EVALUATION OF WHEEZING (05/03/15) GAIT TRAINING THERAPY (10/02/16) HYDRATE IV INFUSION ADD-ON (04/13/15) IIV4 VACC NO PRSV 0.5 ML IM (05/31/17) LIPID PANEL (07/22/18) METABOLIC PANEL TOTAL CA (06/13/18) MRI JNT OF LWR EXTRE W/O DYE (09/09/18) OFFICE/OUTPATIENT VISIT EST (08/22/18) OFFICE/OUTPATIENT VISIT EST (09/13/15) OFFICE/OUTPATIENT VISIT EST (11/02/14) OFFICE/OUTPATIENT VISIT NEW (01/22/18) OFFICE/OUTPATIENT VISIT NEW (03/05/14) POLYSOM 6/>YRS CPAP 4/> PARM (10/13/15) PPSV23 VACC 2 YRS+ SUBQ/IM (11/02/14) PROTHROMBIN TIME (09/14/16) PT EVAL LOW COMPLEX 20 MIN (10/02/16) RBC ANTIBODY SCREEN (10/02/16) ROUTINE VENIPUNCTURE (07/22/18) THER/PROPH/DIAG INJ IV PUSH (04/13/15) THERAPEUTIC ACTIVITIES (10/02/16) THERAPEUTIC EXERCISES (10/02/16) URINALYSIS AUTO W/O SCOPE (09/14/16) URINALYSIS AUTO W/SCOPE (05/03/16) X-RAY EXAM KNEE 4 OR MORE (08/22/18) X-RAY EXAM OF KNEE 1 OR 2 (10/02/16) X-RAY EXAM OF KNEE 3 (10/12/16) (1) S/P total knee arthroplasty SNOMED Code(s): 8853259461994, 935046450, 1202474373934 Code(s): Z96.659 - PRESENCE OF UNSPECIFIED ARTIFICIAL KNEE JOINT Current Visit: Yes Qualifiers: Laterality: right Qualified Code(s): Z96.651 - Presence of right artificial knee joint (2) CAD (coronary artery disease) SNOMED Code(s): 95651885 Code(s): I25.10 - ATHSCL HEART DISEASE OF [place] CORONARY ARTERY W/O ANG PCTRS Current Visit: No Qualifiers: Coronary Disease-Associated Artery/Lesion type: [place] artery [place] vs. transplanted heart: [place] heart Associated angina: without angina Qualified Code(s): I25.10 - Atherosclerotic heart disease of [place] coronary artery without angina pectoris (3) COPD (chronic obstructive pulmonary disease) SNOMED Code(s): 83775588 Code(s): J44.9 - CHRONIC OBSTRUCTIVE PULMONARY DISEASE, UNSPECIFIED Current Visit: No Qualifiers: Chronic bronchitis type: unspecified (4) HTN (hypertension) SNOMED Code(s): 07672961 Code(s): I10 - ESSENTIAL (PRIMARY) HYPERTENSION Current Visit: No Qualifiers: Hypertension type: essential hypertension Qualified Code(s): I10 - Essential (primary) hypertension (5) DAREN on CPAP SNOMED Code(s): 94827961 Code(s): G47.33 - OBSTRUCTIVE SLEEP APNEA (ADULT) (PEDIATRIC); Z99.89 - DEPENDENCE ON OTHER ENABLING MACHINES AND DEVICES Current Visit: No (6) Obesity, morbid, BMI 50 or higher SNOMED Code(s): 033388097, 568712572 Code(s): E66.01 - MORBID (SEVERE) OBESITY DUE TO EXCESS CALORIES Current Visit: No Problem List Initiated/Reviewed/Updated: Yes Plan: This 72 year old male admitted with R TKA with Dr Jada, Hospitalist service consulted for medical management. 1. S/P R TKA: Orders per Orthopedics 2. HTN: Stable. Continue Diltiazem. Monitor. Lasix for peripheral edema. 3. CAD: Stable. Continue Crestor and ASA. 4. COPD: Stable. Continue Symbicort and Proair. 5. DAREN: Stable, CPAP at bedside. VTE prophylaxis: Recommended with deemed appropriate by orthopedics
[2018-10-21] MEDS: ceFAZolin 2 GM in Premix Bag 1 BAG IV SCH (15:31)
--- NOTE | 2018-10-21 16:18 | OR ---
SURGEON: Edith Elias MD DATE OF PROCEDURE: 10/21/2018 PREOPERATIVE DIAGNOSIS: Degenerative joint disease, right knee, tricompartmental. POSTOPERATIVE DIAGNOSIS: Degenerative joint disease, right knee, tricompartmental. PROCEDURE PERFORMED: Right total knee arthroplasty using patient-specific instrumentation. PUBLIC HOUSING INTERVIEWER: Leslie Mills PA-C, and YONIS Flowers. ANESTHESIA: Spinal with sedation. ESTIMATED BLOOD LOSS: 50 mL. TOURNIQUET TIME: 51 minute. COMPLICATIONS: None. DVT PROPHYLAXIS: PAS boot and JESS hose to the nonoperative leg. IMPLANTS USED: Madina Persona femoral component size 11 standard (LPS), tibial component size G, 10 mm all-polyethylene articular insert, and 35 mm all-polyethylene patella. FINDINGS: Showed tricompartmental degenerative changes with grade 4 chondromalacia. Osteophyte formation was also noted. No significant synovitis was found. BRIEF HISTORY: Donell is a 72-year-old male who has had complaint of progressive right knee pain. He had failed conservative treatment. He has previously undergone a left total knee arthroplasty and has done well. Due to his lack of response to conservative treatment, I did recommend surgical intervention. The risks and goals of the procedure were discussed with the patient and were documented preoperatively. He agreed to proceed. DESCRIPTION OF PROCEDURE: The patient was properly identified and brought to the operating room. The patient was then transferred from the operating room cart and placed on the operating table in a supine position. Anesthesia was administered by the anesthesia staff. After adequate anesthesia was obtained, a well-padded tourniquet was applied to the surgical lower extremity. Greenwood catheter was placed. The lower extremity was then prepped in standard fashion using ChloraPrep solution. It was then sterilely draped. A time-out was performed to ensure correct site and procedure. Preoperative antibiotics were given along with one gram tranexamic acid IV. The surgical site had been marked preoperatively. An Esmarch was used to exsanguinate the right lower extremity and the tourniquet was inflated. An incision was made over the anterior aspect of the knee. The subcutaneous tissues were dissected down to the level of the fascia. A medial parapatellar approach to the knee was made. A portion of the infrapatellar fat pad was then excised. The distal femur was then exposed. The step reamer was used to gain access to the intramedullary canal. This was placed in 6 degrees of valgus. Pins were placed. The distal femoral cutting block was placed and the distal femoral cut was made. Instrumentation was then removed. The femur was then sized. Both Whitesides' line and the epicondylar axis were then marked with electrocautery. The 4-in-1 cutting block was placed. This was placed in a slightly externally rotated position, which corresponded well with the previously drawn lines. The cutting guide was then pinned into position. An Everett wing guide was used to check the depth of resection of our anterior condylar cut and it was felt that no notching would occur. The anterior condylar cut was then made followed by the posterior condylar cut. Both the posterior chamfer and anterior chamfer cuts were then made. The cutting block was then removed along with the excess bony remnants. We then turned our attention to the tibia. The anterior cruciate ligament and posterior cruciate ligament were released and a posterior cruciate ligament retractor was placed to allow the tibia to be pulled anteriorly. The tibial extra-medullary guide was then positioned. We chose to take approximately 2 mm off the lowest side. The proximal tibia cutting guide was then placed and screwed into position. The proximal tibial resection was then made with care being taken to protect the patellar tendon. The bony resection was then removed. The remainder of the medial and lateral meniscus were then excised. Care was taken to protect the popliteus tendon. The tibia was then sized to the appropriate size. The distal femur was then elevated. The posterior capsule was stripped off the distal femur both medially and laterally. The posterior capsule along with the medial and lateral gutters were then injected with a standard mixture consisting of clonidine, epinephrine, Toradol, and ropivacaine, unless any allergies were found preoperatively. The femoral component was then placed onto the distal femur in a slightly lateral position. This fit the femur well. A box cut was then made without difficulty. This was then removed. The tibial trial along with the polyethylene liner was then placed. The knee came easily into full extension and was stable to varus and valgus stressing both in full extension and flexion. Any additional releases were performed at this time. We then returned our attention to the patella. The patella was everted and towel clamps were used to hold the patella in position. It was resected to a 15 millimeter thickness. It was then sized to the appropriate size. It was prepared in the usual fashion after placing the predetermined size clamps. This was placed in a slightly superior and medial position. The clamp was then removed. The patellar trial button was placed. The knee was taken through a range of motion using the no-touch technique. The patella tracked centrally. A drop yuliana was then placed to check alignment. All instruments were then removed from the knee. The tibial sizer was then placed on the tibia. The tibia was prepared in the usual fashion using the reamer and broach. This was then removed. All bony surfaces were copiously irrigated with Pulsavac solution. They were then suctioned dry. Cement was prepared on the back table in the usual manner. Antibiotic impregnated cement was used if the patient was diabetic. Once it was prepared, the bone ends were again suctioned dry. The tibia was cemented into place first. This was malleted into position. Excess cement was then cleared. The femur was then placed in a similar manner. We placed the polyethylene trial into place and the knee was brought into full extension. An axial load was placed while keeping the knee in full extension. The patella button was also cemented into position and the clamp was used to hold this in place as the cement was allowed to cure. The wound was copiously irrigated with saline using a Pulsavac pantry cook. Following this, 1 gram of tranexamic acid was applied topically to the wound during the curing process. After we had adequate curing of the cement, the knee was again taken through a range of motion. The size of the polyethylene was then determined. The polyethylene trial was then removed. The tibial tray was suctioned to make sure there was no remaining soft tissue or cement. Excess cement was cleared from around the edges of the prosthesis as well. The tourniquet was then deflated. We were able to observe for any excess bleeding and none was noted. Electrocautery was used to maintain hemostasis. An additional gram of tranexamic acid was given IV. The retractors were again placed and the predetermined polyethylene was then placed. This was locked into position without difficulty. The knee was again taken through a range of motion with no change from the prior exam. The fascial layer was closed with Number One Vicryl. The subcutaneous tissues were closed with 2-0 Vicryl. The skin was closed with miguel ángel. Xeroform gauze was placed over the wound and a bulky dressing was applied. The patient was then awakened from anesthesia and transferred back to the operating room cart. They were brought to the recovery room in stable condition. All needle and sponge counts were correct. BLANQUITA MATHEW /[id number]
[2018-10-21] MEDS: Tamsulosin 0.4 MG Cap.ER PO SCH (20:28)
[2018-10-21] MEDS: Montelukast 10 MG Tab PO SCH (20:28)
[2018-10-21] MEDS: Rosuvastatin 10 MG Tab PO SCH (20:29)
[2018-10-21] MEDS: Budesonide/Formoterol 160-4.5 MCG/Puff 6 GM Inhaler INH SCH (22:19)
[2018-10-22] MEDS: ceFAZolin 2 GM in Premix Bag 1 BAG IV SCH (01:29)
[2018-10-22] MEDS: Acetaminophen 1,000 MG in Premix Bag 1 BAG IV SCH (01:31)
[2018-10-22] MEDS: Lactated Ringers 1,000 ML IV SCH (04:34)
[2018-10-22] MEDS: oxyCODONE 5 MG Tab PO PRN (06:52)
--- NOTE | 2018-10-22 08:17 | PCM.SURGPN ---
<Leslie Mills R - Last Filed: 10/22/18 08:17> - General Info Date of Service: 10/22/18 Date of Surgery/Procedure: 10/21/18 POD#: 1 Functional Status: Reports: Tolerating Diet, Ambulating - Review of Systems General: Reports: No Symptoms Pulmonary: Reports: No Symptoms Cardiovascular: Reports: No Symptoms Gastrointestinal: Reports: No Symptoms Systems Review Comment:: pt up to chair for breakfast tolerating PO intake well rates pain as 03/25 has been getting oxycodone as ordered by ortho, not the norco 5/325 as ordered by anesthesia has been OOB, ambulating, increased pain with activity denies CP/SOB, n/v - Patient Data Vitals - Most Recent: Last Vital Signs Temp 98.4 F 10/22/18 07:50 Pulse 68 10/22/18 07:50 Resp 18 10/22/18 07:50 BP 148/70 H 10/22/18 07:50 Pulse Ox 94 L 10/22/18 07:50 Weight - Most Recent: 159.665 kg I&O - Last 24 Hours: Intake & Output 10/21/18 10/22/18 10/22/18 22:59 06:59 14:59 Intake Total 1458 1200 Output Total 800 400 Balance 658 800 Lab Results Last 24 Hrs: Laboratory Results - last 24 hr 10/21/18 10/21/18 10/22/18 Range/Units 11:17 11:17 07:25 WBC 5.28 (4.0-11.0) K/uL RBC 4.03 L (4.50-5.90) M/uL Hgb 13.0 12.6 L (13.0-17.0) g/dL Hct 38.6 38.3 (38.0-50.0) % MCV 95.8 (80.0-98.0) fL MCH 32.3 H (27.0-32.0) pg MCHC 33.7 (31.0-37.0) g/dL RDW Std Deviation 46.0 (28.0-62.0) fl RDW Coeff of Sonia 13 (11.0-15.0) % Plt Count 131 L (150-400) K/uL MPV 10.10 (7.40-12.00) fL Neut % (Auto) 80.5 H (48.0-80.0) % Lymph % (Auto) 9.5 L (16.0-40.0) % [place] % (Auto) 8.7 (0.0-15.0) % Eos % (Auto) 1.1 (0.0-7.0) % Baso % (Auto) 0.2 (0.0-1.5) % Neut # (Auto) 4.3 (1.4-5.7) K/uL Lymph # (Auto) 0.5 L (0.6-2.4) K/uL [place] # (Auto) 0.5 (0.0-0.8) K/uL Eos # (Auto) 0.1 (0.0-0.7) K/uL Baso # (Auto) 0.0 (0.0-0.1) K/uL Nucleated RBC % 0.0 /100WBC Nucleated RBCs # 0 K/uL Sodium 139 (136-148) mmol/L Potassium 4.3 (3.5-5.1) mmol/L Chloride 105 (98-107) mmol/L Carbon Dioxide 25.8 (21.0-32.0) mmol/L BUN 19 H (7.0-18.0) mg/dL Creatinine 1.1 (0.8-1.3) mg/dL Est Cr Clr Drug Dosing 71.61 mL/min Estimated GFR (MDRD) > 60.0 ml/min Glucose 140 H (74-106) mg/dL Calcium 8.4 L (8.5-10.1) mg/dL 10/22/18 Range/Units 07:25 WBC (4.0-11.0) K/uL RBC (4.50-5.90) M/uL Hgb (13.0-17.0) g/dL Hct (38.0-50.0) % MCV (80.0-98.0) fL MCH (27.0-32.0) pg MCHC (31.0-37.0) g/dL RDW Std Deviation (28.0-62.0) fl RDW Coeff of Sonia (11.0-15.0) % Plt Count (150-400) K/uL MPV (7.40-12.00) fL Neut % (Auto) (48.0-80.0) % Lymph % (Auto) (16.0-40.0) % [place] % (Auto) (0.0-15.0) % Eos % (Auto) (0.0-7.0) % Baso % (Auto) (0.0-1.5) % Neut # (Auto) (1.4-5.7) K/uL Lymph # (Auto) (0.6-2.4) K/uL [place] # (Auto) (0.0-0.8) K/uL Eos # (Auto) (0.0-0.7) K/uL Baso # (Auto) (0.0-0.1) K/uL Nucleated RBC % /100WBC Nucleated RBCs # K/uL Sodium 139 (136-148) mmol/L Potassium 4.5 (3.5-5.1) mmol/L Chloride 104 (98-107) mmol/L Carbon Dioxide 30.6 (21.0-32.0) mmol/L BUN 22 H (7.0-18.0) mg/dL Creatinine 1.2 (0.8-1.3) mg/dL Est Cr Clr Drug Dosing 65.65 mL/min Estimated GFR (MDRD) 59.7 ml/min Glucose 113 H (74-106) mg/dL Calcium 8.2 L (8.5-10.1) mg/dL Med Orders - Current: Current Medications Al Hydroxide/Mg Hydroxide (Mag-Al Plus) 30 ml PO Q4H PRN PRN Reason: Indigestion Albuterol (Proventil Neb Soln) 3 mg NEB Q4H PRN PRN Reason: Wheezing Albuterol (Ventolin Hfa) 0 gm INH Q6H PRN PRN Reason: Shortness of Breath Albuterol (Proventil Neb Soln) 2.5 mg NEB Q6H PRN PRN Reason: Wheezing Aspirin (Ecotrin) 325 mg PO BID [facility] Atropine Sulfate (Atropine 0.1 Mg/Ml) 0.4 mg IVPUSH Q5M PRN PRN Reason: Bradycardia Bisacodyl (Dulcolax) 10 mg RECTAL DAILY PRN PRN Reason: Constipation Diphenhydramine HCl (Benadryl) 25 - 50 mg PO Q6H PRN PRN Reason: Itching Docusate Sodium (Colace) 100 mg PO BID PRN PRN Reason: Constipation Famotidine (Pepcid) 40 mg IVPUSH ONARRIVE [facility] Last Admin: 10/21/18 07:24 Dose: 40 mg Famotidine (Pepcid) 40 mg PO DAILY [facility] Fentanyl (Sublimaze) 50 mcg IVPUSH Q5M PRN PRN Reason: Pain (severe 7-10) Stop: 10/22/18 10:08 Fluticasone Propionate (Flonase) 0 gm NASBOTH DAILY [facility] Furosemide (Lasix) 20 mg PO DAILY [facility] Hydralazine HCl (Apresoline) 5 mg IVPUSH ONETIME PRN PRN Reason: Hypertension Hydralazine HCl (Apresoline) 10 mg IVPUSH ONETIME PRN PRN Reason: Hypertension Hydromorphone HCl (Dilaudid) 0.5 - 1 mg IVPUSH Q3H PRN PRN Reason: Pain Last Admin: 10/21/18 15:23 Dose: 0.5 mg Hydromorphone HCl (Dilaudid) 0.25 mg IVPUSH Q10M PRN PRN Reason: Pain (severe 7-10) Stop: 10/22/18 10:08 Acetaminophen 1,000 mg/ Premix 100 mls @ 400 mls/hr IV ONARRIVE [facility] Last Admin: 10/21/18 18:48 Dose: 400 mls/hr Cefazolin Sodium/Dextrose 2 gm (/ Premix) 50 mls @ 100 mls/hr IV ONCALL [facility] Last Admin: 10/22/18 00:00 Dose: 100 mls/hr Lactated Ringer's (Ringers, Lactated) 1,000 mls @ 100 mls/hr IV ASDIRECTED [facility] Last Admin: 10/22/18 04:34 Dose: 100 mls/hr Tranexamic Acid 2,000 mg/ (Sodium Chloride) 120 mls @ 600 mls/hr IV ASDIRECTED [facility] Labetalol HCl (Normodyne) 10 mg IVPUSH Q6H PRN PRN Reason: Hypertension Stop: 10/22/18 10:08 Loratadine (Claritin) 10 mg PO DAILY [facility] Meperidine HCl (Demerol) 12.5 mg IVPUSH ONETIME PRN PRN Reason: Shivering Meperidine HCl (Demerol) 25 mg IV ONETIME PRN PRN Reason: Shivering Metoclopramide HCl (Reglan) 10 mg IVPUSH ONETIME PRN PRN Reason: Nausea Montelukast Sodium (Singulair) 10 mg PO BEDTIME [facility] Last Admin: 10/21/18 20:28 Dose: 10 mg Morphine Sulfate (Morphine) 4 mg IVPUSH Q10M PRN PRN Reason: Pain (severe 7-10) Stop: 10/22/18 10:08 Naloxone HCl (Narcan) 0.1 mg IVPUSH ONETIME PRN PRN Reason: Respiratory Depression Ondansetron HCl (Zofran) 4 mg IVPUSH Q6H PRN PRN Reason: Nausea/Vomiting Ondansetron HCl (Zofran) 8 mg IVPUSH ONETIME PRN PRN Reason: Nausea Oxycodone/Acetaminophen (Percocet 325-5 Mg) 1 - 2 tab PO Q4H PRN PRN Reason: Pain Budesonide/Formoterol 160-4.5 Mcg/Puff 6 Gm Inhaler 2 each INH BID [facility] Last Admin: 10/21/18 22:19 Dose: 2 each Diltiazem 300 Mg 24 (Hr) 1 each PO QAM [facility] Polyethylene Glycol (Miralax) 17 gm PO DAILY [facility] Promethazine HCl (Phenergan) 12.5 mg IM ONETIME PRN PRN Reason: Nausea Rosuvastatin Calcium (Crestor) 10 mg PO Q2D@2100 [facility] Last Admin: 10/21/18 20:29 Dose: Not Given Scopolamine (Transderm-Scop) 1.5 mg TRDERM ONARRIVE [facility] Last Admin: 10/21/18 07:31 Dose: 1.5 mg Scopolamine (Transderm-Scop) 1.5 mg TRDERM Q72H PRN PRN Reason: Nausea Sodium Chloride (Saline Flush) 10 ml FLUSH ASDIRECTED PRN PRN Reason: Keep Vein Open Sodium Chloride (Saline Flush) 2.5 ml FLUSH ASDIRECTED PRN PRN Reason: Keep Vein Open Tamsulosin HCl (Flomax) 0.4 mg PO BEDTIME [facility] Last Admin: 10/21/18 20:28 Dose: 0.4 mg Discontinued Medications Hydrocodone Bitart/Acetaminophen ([place] 325-5 Mg) 2 tab PO Q6H PRN PRN Reason: Pain (moderate 4-6) Last Admin: 10/21/18 22:24 Dose: 2 tab Cefazolin Sodium (Ancef) Confirm Administered Dose 2 gm .ROUTE .STK-MED ONE Stop: 10/21/18 08:31 Ephedrine Sulfate (Ephedrine Sulfate) Confirm Administered Dose 50 mg .ROUTE .STK-MED ONE Stop: 10/21/18 08:41 Fentanyl (Sublimaze) Confirm Administered Dose 100 mcg .ROUTE .STK-MED ONE Stop: 10/21/18 07:11 Ropivacaine 49.25 ml/Ketorolac Tromethamine 30 mg/Epinephrine HCl 0.5 mg/ Clonidine HCl 80 mcg/ Sodium Chloride 75 mls @ 50 mls/sec INJECT ASDIRECTED [facility] Sodium Chloride (Normal Saline) Confirm Administered Dose 20 mls @ as directed .ROUTE .STK-MED ONE Stop: 10/21/18 08:31 Acetaminophen 1,000 mg/ Premix 100 mls @ 400 mls/hr IV Q6H [facility] Stop: 10/22/18 01:14 Last Admin: 10/21/18 14:05 Dose: Not Given Cefazolin Sodium/Dextrose 2 gm (/ Premix) 50 mls @ 100 mls/hr IV Q8H [facility] Stop: 10/22/18 00:29 Last Admin: 10/22/18 01:29 Dose: 100 mls/hr Acetaminophen 1,000 mg/ Premix 100 mls @ 400 mls/hr IV Q6H [facility] Stop: 10/22/18 01:14 Last Admin: 10/22/18 01:31 Dose: 400 mls/hr Lidocaine (Xylocaine-Mpf 2%) Confirm Administered Dose 5 ml .ROUTE .STK-MED ONE Stop: 10/21/18 07:11 Midazolam HCl (Versed 1 Mg/Ml) Confirm Administered Dose 2 mg .ROUTE .STK-MED ONE Stop: 10/21/18 07:11 Midazolam HCl (Versed 1 Mg/Ml) Confirm Administered Dose 2 mg .ROUTE .STK-MED ONE Stop: 10/21/18 09:42 Oxycodone HCl (Oxycodone) 5 - 10 mg PO Q4H PRN PRN Reason: Pain Stop: 10/22/18 06:00 Last Admin: 10/22/18 06:52 Dose: 5 mg Propofol (Diprivan 20 Ml) Confirm Administered Dose 400 mg .ROUTE .STK-MED ONE Stop: 10/21/18 07:11 Propofol (Diprivan 20 Ml) Confirm Administered Dose 400 mg .ROUTE .STK-MED ONE Stop: 10/21/18 08:51 Rosuvastatin Calcium (Crestor) 10 mg PO Q2D@0900 [facility] Last Admin: 10/21/18 13:51 Dose: Not Given Tranexamic Acid (Cyklokapron) Confirm Administered Dose 2,000 mg .ROUTE .STK- MED ONE Stop: 10/21/18 07:55 - Exam Wound/Incisions: Dressing Dry and Intact General: Alert, Oriented Cardiovascular: Regular Rate, Regular Rhythm Extremities: Other (exam RLE - dressing c/d/i, at/ehl/gastroc 5/5, dp 2+, sensation intact distally) Physical Findings Comment:: vss, afeb uo 1390mL hgb 12.6 - Problem List Review Problem List Initiated/Reviewed/Updated: Yes - My Orders Last 24 Hours: Active Orders 24 hr Category Date Time Status Blood Glucose Check, Bedside [RC] PRN Care 10/21/18 10:08 Active Communication Order [RC] PRN Care 10/21/18 09:48 Active Insert Urinary Catheter [OM.PC] Q24H Care 10/21/18 08:00 Ordered Neurovascular Check [RC] Q2HR Care 10/21/18 09:48 Active Notify Provider Consults [RC] ASDIRECTED Care 10/21/18 09:49 Active Notify Provider Vital Signs [RC] ASDIRECTED Care 10/21/18 09:48 Active Oxygen Therapy [RC] ASDIRECTED Care 10/21/18 10:08 Active RT Aerosol Therapy [RC] ASDIRECTED Care 10/21/18 09:53 Active RT Incentive Spirometry [RC] Q1HWA Care 10/21/18 09:48 Active Urinary Catheter Removal [RC] ASDIRECTED Care 10/22/18 06:00 Active Vital Signs [RC] Q4H Care 10/21/18 10:08 Active Wound Care [RC] DAILY Care 10/21/18 09:48 Active Consult to Physician [CONS] Routine Cons 10/21/18 09:48 Active PT Evaluation and Treatment [CONS] Routine Cons 10/21/18 09:48 Active BMP [BASIC METABOLIC PANEL,BMP] [CHEM] AM Lab 10/23/18 05:11 Ordered HEMOGLOBIN/HEMATOCRIT,HH [HEME] DAILY Lab 10/23/18 06:00 Ordered Acetaminophen/oxyCODONE [Percocet 325-5 MG] Med 10/22/18 06:00 Active 1 - 2 tab PO Q4H PRN Albuterol [Proventil Neb Soln] Med 10/21/18 10:08 Active 2.5 mg NEB Q6H PRN Albuterol [Proventil Neb Soln] Med 10/21/18 09:52 Active 3 mg NEB Q4H PRN Albuterol [Ventolin HFA] Med 10/21/18 09:52 Active 0 gm INH Q6H PRN Alum Hydrox/Mag Hydrox/Simeth [Mag-Al Plus] Med 10/21/18 09:48 Active 30 ml PO Q4H PRN Aspirin [Ecotrin] Med 10/22/18 09:00 Active 325 mg PO BID Atropine [Atropine 0.1 MG/ML] Med 10/21/18 10:08 Active 0.4 mg IVPUSH Q5M PRN Bisacodyl [Dulcolax] Med 10/21/18 09:48 Active 10 mg RECTAL DAILY PRN Docusate Sodium [Colace] Med 10/21/18 09:48 Active 100 mg PO BID PRN Famotidine [Pepcid] Med 10/22/18 09:00 Active 40 mg PO DAILY Fluticasone Propionate [Flonase] Med 10/22/18 09:00 Active 0 gm NASBOTH DAILY Furosemide [Lasix] Med 10/22/18 09:00 Active 20 mg PO DAILY HYDROmorphone [Dilaudid] Med 10/21/18 10:08 Active 0.25 mg IVPUSH Q10M PRN HYDROmorphone [Dilaudid] Med 10/21/18 09:48 Active 0.5 - 1 mg IVPUSH Q3H PRN Labetalol [Normodyne] Med 10/21/18 10:08 Active 10 mg IVPUSH Q6H PRN Loratadine [Claritin] Med 10/22/18 09:00 Active 10 mg PO DAILY Meperidine [Demerol] Med 10/21/18 10:08 Active 12.5 mg IVPUSH ONETIME PRN Meperidine [Demerol] Med 10/21/18 10:08 Active 25 mg IV ONETIME PRN Metoclopramide [Reglan] Med 10/21/18 10:08 Active 10 mg IVPUSH ONETIME PRN Montelukast [Singulair] Med 10/21/18 21:00 Active 10 mg PO BEDTIME Morphine Med 10/21/18 10:08 Active 4 mg IVPUSH Q10M PRN Naloxone [Narcan] Med 10/21/18 10:08 Active 0.1 mg IVPUSH ONETIME PRN Ondansetron [Zofran] Med 10/21/18 09:48 Active 4 mg IVPUSH Q6H PRN Ondansetron [Zofran] Med 10/21/18 10:08 Active 8 mg IVPUSH ONETIME PRN Patient's Own Medication [Ptom] Med 10/22/18 09:00 Active 1 each PO QAM Patient's Own Medication [Ptom] Med 10/21/18 21:00 Active 2 each INH BID Polyethylene Glycol 3350 [MiraLAX] Med 10/22/18 09:00 Active 17 gm PO DAILY Promethazine [Phenergan] Med 10/21/18 10:08 Active 12.5 mg IM ONETIME PRN Rosuvastatin [Crestor] Med 10/21/18 21:00 Active 10 mg PO Q2D@2100 Scopolamine [Transderm-Scop] Med 10/21/18 10:08 Active 1.5 mg TRDERM Q72H PRN Sodium Chloride 0.9% [Saline Flush] Med 10/21/18 09:48 Active 10 ml FLUSH ASDIRECTED PRN Sodium Chloride 0.9% [Saline Flush] Med 10/21/18 09:48 Active 2.5 ml FLUSH ASDIRECTED PRN Tamsulosin [Flomax] Med 10/21/18 21:00 Active 0.4 mg PO BEDTIME Tranexamic Acid [Cyklokapron] 2,000 mg Med 10/21/18 08:00 Active Sodium Chloride 0.9% [Normal Saline] 100 ml IV ASDIRECTED ceFAZolin [Ancef] 2 gm Med 10/21/18 08:00 Active Premix Bag 1 bag IV ONCALL diphenhydrAMINE [Benadryl] Med 10/21/18 09:48 Active 25 - 50 mg PO Q6H PRN fentaNYL [Sublimaze] Med 10/21/18 10:08 Active 50 mcg IVPUSH Q5M PRN hydrALAZINE [Apresoline] Med 10/21/18 10:08 Active 10 mg IVPUSH ONETIME PRN hydrALAZINE [Apresoline] Med 10/21/18 10:08 Active 5 mg IVPUSH ONETIME PRN Convert IV to Saline Lock [OM.PC] Routine Oth 10/22/18 06:00 Ordered Ice Therapy [OM.PC] Routine Oth 10/21/18 09:48 Ordered Medication Orders Al Hydroxide/Mg Hydroxide (Mag-Al Plus) 30 ml PO Q4H PRN PRN Reason: Indigestion Albuterol (Proventil Neb Soln) 3 mg NEB Q4H PRN PRN Reason: Wheezing Albuterol (Ventolin Hfa) 0 gm INH Q6H PRN PRN Reason: Shortness of Breath Albuterol (Proventil Neb Soln) 2.5 mg NEB Q6H PRN PRN Reason: Wheezing Aspirin (Ecotrin) 325 mg PO BID [facility] Atropine Sulfate (Atropine 0.1 Mg/Ml) 0.4 mg IVPUSH Q5M PRN PRN Reason: Bradycardia Bisacodyl (Dulcolax) 10 mg RECTAL DAILY PRN PRN Reason: Constipation Diphenhydramine HCl (Benadryl) 25 - 50 mg PO Q6H PRN PRN Reason: Itching Docusate Sodium (Colace) 100 mg PO BID PRN PRN Reason: Constipation Famotidine (Pepcid) 40 mg IVPUSH ONARRIVE [facility] Last Admin: 10/21/18 07:24 Dose: 40 mg Famotidine (Pepcid) 40 mg PO DAILY [facility] Fentanyl (Sublimaze) 50 mcg IVPUSH Q5M PRN PRN Reason: Pain (severe 7-10) Stop: 10/22/18 10:08 Fluticasone Propionate (Flonase) 0 gm NASBOTH DAILY [facility] Furosemide (Lasix) 20 mg PO DAILY [facility] Hydralazine HCl (Apresoline) 5 mg IVPUSH ONETIME PRN PRN Reason: Hypertension Hydralazine HCl (Apresoline) 10 mg IVPUSH ONETIME PRN PRN Reason: Hypertension Hydromorphone HCl (Dilaudid) 0.5 - 1 mg IVPUSH Q3H PRN PRN Reason: Pain Last Admin: 10/21/18 15:23 Dose: 0.5 mg Hydromorphone HCl (Dilaudid) 0.25 mg IVPUSH Q10M PRN PRN Reason: Pain (severe 7-10) Stop: 10/22/18 10:08 Acetaminophen 1,000 mg/ Premix 100 mls @ 400 mls/hr IV ONARRIVE [facility] Last Admin: 10/21/18 18:48 Dose: 400 mls/hr Infusion: 10/21/18 13:01 Dose: 400 mls/hr Admin: 10/21/18 12:46 Dose: 400 mls/hr Infusion: 10/21/18 07:43 Dose: 400 mls/hr Admin: 10/21/18 07:28 Dose: 400 mls/hr Cefazolin Sodium/Dextrose 2 gm (/ Premix) 50 mls @ 100 mls/hr IV ONCALL [facility] Last Admin: 10/22/18 00:00 Dose: 100 mls/hr Lactated Ringer's (Ringers, Lactated) 1,000 mls @ 100 mls/hr IV ASDIRECTED [facility] Last Admin: 10/22/18 04:34 Dose: 100 mls/hr Infusion: 10/22/18 03:26 Dose: 100 mls/hr Admin: 10/21/18 17:26 Dose: 100 mls/hr Infusion: 10/21/18 17:20 Dose: 100 mls/hr Admin: 10/21/18 07:20 Dose: 100 mls/hr Tranexamic Acid 2,000 mg/ (Sodium Chloride) 120 mls @ 600 mls/hr IV ASDIRECTED [facility] Labetalol HCl (Normodyne) 10 mg IVPUSH Q6H PRN PRN Reason: Hypertension Stop: 10/22/18 10:08 Loratadine (Claritin) 10 mg PO DAILY [facility] Meperidine HCl (Demerol) 12.5 mg IVPUSH ONETIME PRN PRN Reason: Shivering Meperidine HCl (Demerol) 25 mg IV ONETIME PRN PRN Reason: Shivering Metoclopramide HCl (Reglan) 10 mg IVPUSH ONETIME PRN PRN Reason: Nausea Montelukast Sodium (Singulair) 10 mg PO BEDTIME [facility] Last Admin: 10/21/18 20:28 Dose: 10 mg Morphine Sulfate (Morphine) 4 mg IVPUSH Q10M PRN PRN Reason: Pain (severe 7-10) Stop: 10/22/18 10:08 Naloxone HCl (Narcan) 0.1 mg IVPUSH ONETIME PRN PRN Reason: Respiratory Depression Ondansetron HCl (Zofran) 4 mg IVPUSH Q6H PRN PRN Reason: Nausea/Vomiting Ondansetron HCl (Zofran) 8 mg IVPUSH ONETIME PRN PRN Reason: Nausea Oxycodone/Acetaminophen (Percocet 325-5 Mg) 1 - 2 tab PO Q4H PRN PRN Reason: Pain Budesonide/Formoterol 160-4.5 Mcg/Puff 6 Gm Inhaler 2 each INH BID [facility] Last Admin: 10/21/18 22:19 Dose: 2 each Diltiazem 300 Mg 24 (Hr) 1 each PO QAM [facility] Polyethylene Glycol (Miralax) 17 gm PO DAILY [facility] Promethazine HCl (Phenergan) 12.5 mg IM ONETIME PRN PRN Reason: Nausea Rosuvastatin Calcium (Crestor) 10 mg PO Q2D@2100 [facility] Last Admin: 10/21/18 20:29 Dose: Not Given Scopolamine (Transderm-Scop) 1.5 mg TRDERM ONARRIVE [facility] Last Admin: 10/21/18 07:31 Dose: 1.5 mg Scopolamine (Transderm-Scop) 1.5 mg TRDERM Q72H PRN PRN Reason: Nausea Sodium Chloride (Saline Flush) 10 ml FLUSH ASDIRECTED PRN PRN Reason: Keep Vein Open Sodium Chloride (Saline Flush) 2.5 ml FLUSH ASDIRECTED PRN PRN Reason: Keep Vein Open Tamsulosin HCl (Flomax) 0.4 mg PO BEDTIME [facility] Last Admin: 10/21/18 20:28 Dose: 0.4 mg - Assessment Assessment (Free Text/Narrative):: POD#1 R TKA acute posthemorrhagic anemia - Plan Plan (Free Text/Narrative):: DC IV fluids - saline lock IV DC patterson DC [employer] - morphine IV prn breakthrough pain DC oxycodone - percocet 5/325 prn available ASA 325mg PO BID as DVT prophylaxis will change dressing to long aquacel prior to discharge PT today pt has wheeled walker or script has been written anticipate up to 72 hour stay for IV pain medication and continued physical therapy pt will require FWW for safe mobility/stability until increased strength/gait independence s/p TKA - has been safely mobilizing in room with FWW. d/ch medications written <Edith Elias - Last Filed: 10/24/18 08:50> - Patient Data Vitals - Most Recent: Last Vital Signs Temp 97.9 F 10/23/18 08:00 Pulse 80 10/23/18 08:00 Resp 16 10/23/18 08:00 BP 122/67 10/23/18 08:00 Pulse Ox 95 10/23/18 08:00 Med Orders - Current: Current Medications Discontinued Medications Hydrocodone Bitart/Acetaminophen ([place] 325-5 Mg) 2 tab PO Q6H PRN PRN Reason: Pain (moderate 4-6) Last Admin: 10/21/18 22:24 Dose: 2 tab Al Hydroxide/Mg Hydroxide (Mag-Al Plus) 30 ml PO Q4H PRN PRN Reason: Indigestion Albuterol (Proventil Neb Soln) 3 mg NEB Q4H PRN PRN Reason: Wheezing Albuterol (Ventolin Hfa) 0 gm INH Q6H PRN PRN Reason: Shortness of Breath Albuterol (Proventil Neb Soln) 2.5 mg NEB Q6H PRN PRN Reason: Wheezing Aspirin (Ecotrin) 325 mg PO BID [facility] Last Admin: 10/23/18 08:45 Dose: 325 mg Atropine Sulfate (Atropine 0.1 Mg/Ml) 0.4 mg IVPUSH Q5M PRN PRN Reason: Bradycardia Bisacodyl (Dulcolax) 10 mg RECTAL DAILY PRN PRN Reason: Constipation Cefazolin Sodium (Ancef) Confirm Administered Dose 2 gm .ROUTE .STK-MED ONE Stop: 10/21/18 08:31 Diphenhydramine HCl (Benadryl) 25 - 50 mg PO Q6H PRN PRN Reason: Itching Docusate Sodium (Colace) 100 mg PO BID PRN PRN Reason: Constipation Ephedrine Sulfate (Ephedrine Sulfate) Confirm Administered Dose 50 mg .ROUTE .STK-MED ONE Stop: 10/21/18 08:41 Famotidine (Pepcid) 40 mg IVPUSH ONARRIVE [facility] Last Admin: 10/21/18 07:24 Dose: 40 mg Famotidine (Pepcid) 40 mg PO DAILY [facility] Last Admin: 10/23/18 08:44 Dose: 40 mg Fentanyl (Sublimaze) Confirm Administered Dose 100 mcg .ROUTE .STK-MED ONE Stop: 10/21/18 07:11 Fentanyl (Sublimaze) 50 mcg IVPUSH Q5M PRN PRN Reason: Pain (severe 7-10) Stop: 10/22/18 10:08 Fluticasone Propionate (Flonase) 0 gm NASBOTH DAILY [facility] Last Admin: 10/23/18 08:46 Dose: 1 sprays Furosemide (Lasix) 20 mg PO DAILY [facility] Last Admin: 10/23/18 08:44 Dose: 20 mg Hydralazine HCl (Apresoline) 5 mg IVPUSH ONETIME PRN PRN Reason: Hypertension Hydralazine HCl (Apresoline) 10 mg IVPUSH ONETIME PRN PRN Reason: Hypertension Hydromorphone HCl (Dilaudid) 0.5 - 1 mg IVPUSH Q3H PRN PRN Reason: Pain Last Admin: 10/21/18 15:23 Dose: 0.5 mg Hydromorphone HCl (Dilaudid) 0.25 mg IVPUSH Q10M PRN PRN Reason: Pain (severe 7-10) Stop: 10/22/18 10:08 Acetaminophen 1,000 mg/ Premix 100 mls @ 400 mls/hr IV ONARRIVE [facility] Last Admin: 10/21/18 18:48 Dose: 400 mls/hr Cefazolin Sodium/Dextrose 2 gm (/ Premix) 50 mls @ 100 mls/hr IV ONCALL [facility] Last Admin: 10/22/18 00:00 Dose: 100 mls/hr Ropivacaine 49.25 ml/Ketorolac Tromethamine 30 mg/Epinephrine HCl 0.5 mg/ Clonidine HCl 80 mcg/ Sodium Chloride 75 mls @ 50 mls/sec INJECT ASDIRECTED [facility] Lactated Ringer's (Ringers, Lactated) 1,000 mls @ 100 mls/hr IV ASDIRECTED [facility] Last Admin: 10/22/18 04:34 Dose: 100 mls/hr Tranexamic Acid 2,000 mg/ (Sodium Chloride) 120 mls @ 600 mls/hr IV ASDIRECTED [facility] Sodium Chloride (Normal Saline) Confirm Administered Dose 20 mls @ as directed .ROUTE .STK-MED ONE Stop: 10/21/18 08:31 Acetaminophen 1,000 mg/ Premix 100 mls @ 400 mls/hr IV Q6H [facility] Stop: 10/22/18 01:14 Last Admin: 10/21/18 14:05 Dose: Not Given Cefazolin Sodium/Dextrose 2 gm (/ Premix) 50 mls @ 100 mls/hr IV Q8H [facility] Stop: 10/22/18 00:29 Last Admin: 10/22/18 01:29 Dose: 100 mls/hr Acetaminophen 1,000 mg/ Premix 100 mls @ 400 mls/hr IV Q6H [facility] Stop: 10/22/18 01:14 Last Admin: 10/22/18 01:31 Dose: 400 mls/hr Labetalol HCl (Normodyne) 10 mg IVPUSH Q6H PRN PRN Reason: Hypertension Stop: 10/22/18 10:08 Lidocaine (Xylocaine-Mpf 2%) Confirm Administered Dose 5 ml .ROUTE .STK-MED ONE Stop: 10/21/18 07:11 Loratadine (Claritin) 10 mg PO DAILY [facility] Last Admin: 10/23/18 11:34 Dose: Not Given Meperidine HCl (Demerol) 12.5 mg IVPUSH ONETIME PRN PRN Reason: Shivering Meperidine HCl (Demerol) 25 mg IV ONETIME PRN PRN Reason: Shivering Metoclopramide HCl (Reglan) 10 mg IVPUSH ONETIME PRN PRN Reason: Nausea Midazolam HCl (Versed 1 Mg/Ml) Confirm Administered Dose 2 mg .ROUTE .STK-MED ONE Stop: 10/21/18 07:11 Midazolam HCl (Versed 1 Mg/Ml) Confirm Administered Dose 2 mg .ROUTE .STK-MED ONE Stop: 10/21/18 09:42 Montelukast Sodium (Singulair) 10 mg PO BEDTIME [facility] Last Admin: 10/22/18 20:03 Dose: 10 mg Morphine Sulfate (Morphine) 4 mg IVPUSH Q10M PRN PRN Reason: Pain (severe 7-10) Stop: 10/22/18 10:08 Naloxone HCl (Narcan) 0.1 mg IVPUSH ONETIME PRN PRN Reason: Respiratory Depression Ondansetron HCl (Zofran) 4 mg IVPUSH Q6H PRN PRN Reason: Nausea/Vomiting Ondansetron HCl (Zofran) 8 mg IVPUSH ONETIME PRN PRN Reason: Nausea Oxycodone HCl (Oxycodone) 5 - 10 mg PO Q4H PRN PRN Reason: Pain Stop: 10/22/18 06:00 Last Admin: 10/22/18 06:52 Dose: 5 mg Oxycodone/Acetaminophen (Percocet 325-5 Mg) 1 - 2 tab PO Q4H PRN PRN Reason: Pain Last Admin: 10/22/18 13:11 Dose: 2 tab Oxycodone/Acetaminophen (Percocet 325-10 Mg) 1 - 2 tab PO Q4H PRN PRN Reason: Pain Last Admin: 10/23/18 08:44 Dose: 2 tab Budesonide/Formoterol 160-4.5 Mcg/Puff 6 Gm Inhaler 2 each INH BID [facility] Last Admin: 10/23/18 08:46 Dose: 2 each Diltiazem 300 Mg 24 (Hr) 1 each PO QAM [facility] Last Admin: 10/22/18 10:19 Dose: Not Given Diltiazem 300 Mg 24 (Hr) 1 each PO QAM [facility] Last Admin: 10/23/18 08:49 Dose: 1 each Polyethylene Glycol (Miralax) 17 gm PO DAILY [facility] Last Admin: 10/23/18 08:47 Dose: 17 gm Promethazine HCl (Phenergan) 12.5 mg IM ONETIME PRN PRN Reason: Nausea Propofol (Diprivan 20 Ml) Confirm Administered Dose 400 mg .ROUTE .STK-MED ONE Stop: 10/21/18 07:11 Propofol (Diprivan 20 Ml) Confirm Administered Dose 400 mg .ROUTE .STK-MED ONE Stop: 10/21/18 08:51 Rosuvastatin Calcium (Crestor) 10 mg PO Q2D@0900 [facility] Last Admin: 10/21/18 13:51 Dose: Not Given Rosuvastatin Calcium (Crestor) 10 mg PO Q2D@2100 [facility] Last Admin: 10/22/18 20:08 Dose: 10 mg Scopolamine (Transderm-Scop) 1.5 mg TRDERM ONARRIVE [facility] Last Admin: 10/21/18 07:31 Dose: 1.5 mg Scopolamine (Transderm-Scop) 1.5 mg TRDERM Q72H PRN PRN Reason: Nausea Sodium Chloride (Saline Flush) 10 ml FLUSH ASDIRECTED PRN PRN Reason: Keep Vein Open Sodium Chloride (Saline Flush) 2.5 ml FLUSH ASDIRECTED PRN PRN Reason: Keep Vein Open Tamsulosin HCl (Flomax) 0.4 mg PO BEDTIME [facility] Last Admin: 10/22/18 20:03 Dose: 0.4 mg Tranexamic Acid (Cyklokapron) Confirm Administered Dose 2,000 mg .ROUTE .STK- MED ONE Stop: 10/21/18 07:55 - My Orders Last 24 Hours: Active Orders 24 hr Category Date Time Status Ready for Discharge [RC] PER UNIT ROUTINE Care 10/23/18 08:14 Active - Plan Plan (Free Text/Narrative):: Late entry: Patient was seen and examined at 1800. He c/o some pain, but was gradually improving. Moving slowly. Plan to keep an additional day for further PT and pain management. hema
[2018-10-22] MEDS ORDERED: DILTIAZEM 300 MG PO SCH (09:00)
[2018-10-22] MEDS: Budesonide/Formoterol 160-4.5 MCG/Puff 6 GM Inhaler INH SCH ×2 (09:19→20:04)
[2018-10-22] MEDS: Acetaminophen/oxyCODONE 325-5 MG Tab PO PRN ×2 (09:22→13:11)
[2018-10-22] MEDS: Furosemide 20 MG Tab PO SCH (09:24)
[2018-10-22] MEDS: Aspirin 325 MG Tab.EC PO SCH ×2 (09:25→20:02)
[2018-10-22] MEDS: Famotidine 20 MG Tab PO SCH (09:25)
[2018-10-22] MEDS: Loratadine 10 MG Tab PO SCH (09:25)
[2018-10-22] MEDS: Polyethylene Glycol 3350 Powder 17 GM Packet PO SCH (09:25)
--- NOTE | 2018-10-22 09:28 | PCM.CONSN ---
<Diana Portillo M - Last Filed: 10/22/18 09:29> - General Info Date of Service: 10/22/18 Admission Dx/Problem (Free Text): Admission Diagnosis/Problem Admission Diagnosis/Problem Replacement of R total knee joint Subjective Update: Having some pain to R knee. No chest pain or SOB. No other concerns. Functional Status: Reports: Pain Controlled, Tolerating Diet, Ambulating - Review of Systems General: Reports: No Symptoms. Denies: Fever, Weakness, Fatigue HEENT: Reports: No Symptoms. Denies: Headaches, Sore Throat Pulmonary: Reports: No Symptoms. Denies: Shortness of Breath, Cough, Sputum Cardiovascular: Reports: No Symptoms. Denies: Chest Pain, Edema Gastrointestinal: Reports: No Symptoms. Denies: Abdominal Pain, Nausea, Vomiting Genitourinary: Reports: No Symptoms Musculoskeletal: Reports: No Symptoms Skin: Reports: No Symptoms Neurological: Reports: No Symptoms Psychiatric: Reports: No Symptoms - Patient Data Vitals - Most Recent: Last Vital Signs Temp 98.4 F 10/22/18 07:50 Pulse 68 10/22/18 07:50 Resp 18 10/22/18 07:50 BP 148/70 H 10/22/18 07:50 Pulse Ox 94 L 10/22/18 07:50 Weight - Most Recent: 159.665 kg I&O - Last 24 Hours: Intake & Output 10/21/18 10/22/18 10/22/18 22:59 06:59 14:59 Intake Total 1458 1200 Output Total 800 400 Balance 658 800 Lab Results Last 24 Hours: Laboratory Results - last 24 hr 10/21/18 10/21/18 10/22/18 Range/Units 11:17 11:17 07:25 WBC 5.28 (4.0-11.0) K/uL RBC 4.03 L (4.50-5.90) M/uL Hgb 13.0 12.6 L (13.0-17.0) g/dL Hct 38.6 38.3 (38.0-50.0) % MCV 95.8 (80.0-98.0) fL MCH 32.3 H (27.0-32.0) pg MCHC 33.7 (31.0-37.0) g/dL RDW Std Deviation 46.0 (28.0-62.0) fl RDW Coeff of Sonia 13 (11.0-15.0) % Plt Count 131 L (150-400) K/uL MPV 10.10 (7.40-12.00) fL Neut % (Auto) 80.5 H (48.0-80.0) % Lymph % (Auto) 9.5 L (16.0-40.0) % [place] % (Auto) 8.7 (0.0-15.0) % Eos % (Auto) 1.1 (0.0-7.0) % Baso % (Auto) 0.2 (0.0-1.5) % Neut # (Auto) 4.3 (1.4-5.7) K/uL Lymph # (Auto) 0.5 L (0.6-2.4) K/uL [place] # (Auto) 0.5 (0.0-0.8) K/uL Eos # (Auto) 0.1 (0.0-0.7) K/uL Baso # (Auto) 0.0 (0.0-0.1) K/uL Nucleated RBC % 0.0 /100WBC Nucleated RBCs # 0 K/uL Sodium 139 (136-148) mmol/L Potassium 4.3 (3.5-5.1) mmol/L Chloride 105 (98-107) mmol/L Carbon Dioxide 25.8 (21.0-32.0) mmol/L BUN 19 H (7.0-18.0) mg/dL Creatinine 1.1 (0.8-1.3) mg/dL Est Cr Clr Drug Dosing 71.61 mL/min Estimated GFR (MDRD) > 60.0 ml/min Glucose 140 H (74-106) mg/dL Calcium 8.4 L (8.5-10.1) mg/dL 10/22/18 Range/Units 07:25 WBC (4.0-11.0) K/uL RBC (4.50-5.90) M/uL Hgb (13.0-17.0) g/dL Hct (38.0-50.0) % MCV (80.0-98.0) fL MCH (27.0-32.0) pg MCHC (31.0-37.0) g/dL RDW Std Deviation (28.0-62.0) fl RDW Coeff of Sonia (11.0-15.0) % Plt Count (150-400) K/uL MPV (7.40-12.00) fL Neut % (Auto) (48.0-80.0) % Lymph % (Auto) (16.0-40.0) % [place] % (Auto) (0.0-15.0) % Eos % (Auto) (0.0-7.0) % Baso % (Auto) (0.0-1.5) % Neut # (Auto) (1.4-5.7) K/uL Lymph # (Auto) (0.6-2.4) K/uL [place] # (Auto) (0.0-0.8) K/uL Eos # (Auto) (0.0-0.7) K/uL Baso # (Auto) (0.0-0.1) K/uL Nucleated RBC % /100WBC Nucleated RBCs # K/uL Sodium 139 (136-148) mmol/L Potassium 4.5 (3.5-5.1) mmol/L Chloride 104 (98-107) mmol/L Carbon Dioxide 30.6 (21.0-32.0) mmol/L BUN 22 H (7.0-18.0) mg/dL Creatinine 1.2 (0.8-1.3) mg/dL Est Cr Clr Drug Dosing 65.65 mL/min Estimated GFR (MDRD) 59.7 ml/min Glucose 113 H (74-106) mg/dL Calcium 8.2 L (8.5-10.1) mg/dL Med Orders - Current: Current Medications Al Hydroxide/Mg Hydroxide (Mag-Al Plus) 30 ml PO Q4H PRN PRN Reason: Indigestion Albuterol (Proventil Neb Soln) 3 mg NEB Q4H PRN PRN Reason: Wheezing Albuterol (Ventolin Hfa) 0 gm INH Q6H PRN PRN Reason: Shortness of Breath Albuterol (Proventil Neb Soln) 2.5 mg NEB Q6H PRN PRN Reason: Wheezing Aspirin (Ecotrin) 325 mg PO BID [facility] Atropine Sulfate (Atropine 0.1 Mg/Ml) 0.4 mg IVPUSH Q5M PRN PRN Reason: Bradycardia Bisacodyl (Dulcolax) 10 mg RECTAL DAILY PRN PRN Reason: Constipation Diphenhydramine HCl (Benadryl) 25 - 50 mg PO Q6H PRN PRN Reason: Itching Docusate Sodium (Colace) 100 mg PO BID PRN PRN Reason: Constipation Famotidine (Pepcid) 40 mg IVPUSH ONARRIVE [facility] Last Admin: 10/21/18 07:24 Dose: 40 mg Famotidine (Pepcid) 40 mg PO DAILY [facility] Fentanyl (Sublimaze) 50 mcg IVPUSH Q5M PRN PRN Reason: Pain (severe 7-10) Stop: 10/22/18 10:08 Fluticasone Propionate (Flonase) 0 gm NASBOTH DAILY [facility] Furosemide (Lasix) 20 mg PO DAILY [facility] Hydralazine HCl (Apresoline) 5 mg IVPUSH ONETIME PRN PRN Reason: Hypertension Hydralazine HCl (Apresoline) 10 mg IVPUSH ONETIME PRN PRN Reason: Hypertension Hydromorphone HCl (Dilaudid) 0.5 - 1 mg IVPUSH Q3H PRN PRN Reason: Pain Last Admin: 10/21/18 15:23 Dose: 0.5 mg Hydromorphone HCl (Dilaudid) 0.25 mg IVPUSH Q10M PRN PRN Reason: Pain (severe 7-10) Stop: 10/22/18 10:08 Acetaminophen 1,000 mg/ Premix 100 mls @ 400 mls/hr IV ONARRIVE [facility] Last Admin: 10/21/18 18:48 Dose: 400 mls/hr Cefazolin Sodium/Dextrose 2 gm (/ Premix) 50 mls @ 100 mls/hr IV ONCALL [facility] Last Admin: 10/22/18 00:00 Dose: 100 mls/hr Lactated Ringer's (Ringers, Lactated) 1,000 mls @ 100 mls/hr IV ASDIRECTED [facility] Last Admin: 10/22/18 04:34 Dose: 100 mls/hr Tranexamic Acid 2,000 mg/ (Sodium Chloride) 120 mls @ 600 mls/hr IV ASDIRECTED [facility] Labetalol HCl (Normodyne) 10 mg IVPUSH Q6H PRN PRN Reason: Hypertension Stop: 10/22/18 10:08 Loratadine (Claritin) 10 mg PO DAILY [facility] Meperidine HCl (Demerol) 12.5 mg IVPUSH ONETIME PRN PRN Reason: Shivering Meperidine HCl (Demerol) 25 mg IV ONETIME PRN PRN Reason: Shivering Metoclopramide HCl (Reglan) 10 mg IVPUSH ONETIME PRN PRN Reason: Nausea Montelukast Sodium (Singulair) 10 mg PO BEDTIME [facility] Last Admin: 10/21/18 20:28 Dose: 10 mg Morphine Sulfate (Morphine) 4 mg IVPUSH Q10M PRN PRN Reason: Pain (severe 7-10) Stop: 10/22/18 10:08 Naloxone HCl (Narcan) 0.1 mg IVPUSH ONETIME PRN PRN Reason: Respiratory Depression Ondansetron HCl (Zofran) 4 mg IVPUSH Q6H PRN PRN Reason: Nausea/Vomiting Ondansetron HCl (Zofran) 8 mg IVPUSH ONETIME PRN PRN Reason: Nausea Oxycodone/Acetaminophen (Percocet 325-5 Mg) 1 - 2 tab PO Q4H PRN PRN Reason: Pain Budesonide/Formoterol 160-4.5 Mcg/Puff 6 Gm Inhaler 2 each INH BID [facility] Last Admin: 10/22/18 09:19 Dose: 2 each Diltiazem 300 Mg 24 (Hr) 1 each PO QAM [facility] Polyethylene Glycol (Miralax) 17 gm PO DAILY [facility] Promethazine HCl (Phenergan) 12.5 mg IM ONETIME PRN PRN Reason: Nausea Rosuvastatin Calcium (Crestor) 10 mg PO Q2D@2100 [facility] Last Admin: 10/21/18 20:29 Dose: Not Given Scopolamine (Transderm-Scop) 1.5 mg TRDERM ONARRIVE [facility] Last Admin: 10/21/18 07:31 Dose: 1.5 mg Scopolamine (Transderm-Scop) 1.5 mg TRDERM Q72H PRN PRN Reason: Nausea Sodium Chloride (Saline Flush) 10 ml FLUSH ASDIRECTED PRN PRN Reason: Keep Vein Open Sodium Chloride (Saline Flush) 2.5 ml FLUSH ASDIRECTED PRN PRN Reason: Keep Vein Open Tamsulosin HCl (Flomax) 0.4 mg PO BEDTIME [facility] Last Admin: 10/21/18 20:28 Dose: 0.4 mg Discontinued Medications Hydrocodone Bitart/Acetaminophen ([place] 325-5 Mg) 2 tab PO Q6H PRN PRN Reason: Pain (moderate 4-6) Last Admin: 10/21/18 22:24 Dose: 2 tab Cefazolin Sodium (Ancef) Confirm Administered Dose 2 gm .ROUTE .STK-MED ONE Stop: 10/21/18 08:31 Ephedrine Sulfate (Ephedrine Sulfate) Confirm Administered Dose 50 mg .ROUTE .STK-MED ONE Stop: 10/21/18 08:41 Fentanyl (Sublimaze) Confirm Administered Dose 100 mcg .ROUTE .STK-MED ONE Stop: 10/21/18 07:11 Ropivacaine 49.25 ml/Ketorolac Tromethamine 30 mg/Epinephrine HCl 0.5 mg/ Clonidine HCl 80 mcg/ Sodium Chloride 75 mls @ 50 mls/sec INJECT ASDIRECTED [facility] Sodium Chloride (Normal Saline) Confirm Administered Dose 20 mls @ as directed .ROUTE .STK-MED ONE Stop: 10/21/18 08:31 Acetaminophen 1,000 mg/ Premix 100 mls @ 400 mls/hr IV Q6H [facility] Stop: 10/22/18 01:14 Last Admin: 10/21/18 14:05 Dose: Not Given Cefazolin Sodium/Dextrose 2 gm (/ Premix) 50 mls @ 100 mls/hr IV Q8H [facility] Stop: 10/22/18 00:29 Last Admin: 10/22/18 01:29 Dose: 100 mls/hr Acetaminophen 1,000 mg/ Premix 100 mls @ 400 mls/hr IV Q6H [facility] Stop: 10/22/18 01:14 Last Admin: 10/22/18 01:31 Dose: 400 mls/hr Lidocaine (Xylocaine-Mpf 2%) Confirm Administered Dose 5 ml .ROUTE .STK-MED ONE Stop: 10/21/18 07:11 Midazolam HCl (Versed 1 Mg/Ml) Confirm Administered Dose 2 mg .ROUTE .STK-MED ONE Stop: 10/21/18 07:11 Midazolam HCl (Versed 1 Mg/Ml) Confirm Administered Dose 2 mg .ROUTE .STK-MED ONE Stop: 10/21/18 09:42 Oxycodone HCl (Oxycodone) 5 - 10 mg PO Q4H PRN PRN Reason: Pain Stop: 10/22/18 06:00 Last Admin: 10/22/18 06:52 Dose: 5 mg Propofol (Diprivan 20 Ml) Confirm Administered Dose 400 mg .ROUTE .STK-MED ONE Stop: 10/21/18 07:11 Propofol (Diprivan 20 Ml) Confirm Administered Dose 400 mg .ROUTE .STK-MED ONE Stop: 10/21/18 08:51 Rosuvastatin Calcium (Crestor) 10 mg PO Q2D@0900 [facility] Last Admin: 10/21/18 13:51 Dose: Not Given Tranexamic Acid (Cyklokapron) Confirm Administered Dose 2,000 mg .ROUTE .STK- MED ONE Stop: 10/21/18 07:55 - Exam General: Alert, Oriented, Cooperative, No Acute Distress Lungs: Clear to Auscultation, Normal Respiratory Effort Cardiovascular: Regular Rate, Regular Rhythm GI/Abdominal Exam: Normal Bowel Sounds, Soft, Non-Tender, Other (obese abdomen limits exam) Extremities: Normal Inspection, Pedal Edema (+1 non pitting edema BLE, near baseline) Neurological: No New Focal Deficit Psy/Mental Status: Alert, Normal Affect, Normal Mood Consult PN Assessment/Plan Procedures: Procedures AIRWAY INHALATION TREATMENT (10/02/16) ALANINE AMINO (ALT) (SGPT) (11/02/14) ASSAY OF NATRIURETIC PEPTIDE (04/23/15) BLOOD TYPING SEROLOGIC ABO (10/02/16) BLOOD TYPING SEROLOGIC RH(D) (10/02/16) C-REACTIVE PROTEIN (04/13/15) CARDIAC REHAB/MONITOR (11/03/15) CHEST X-RAY 2VW FRONTAL&LATL (09/14/16) COLONOSCOPY AND BIOPSY (02/01/18) COMPLETE CBC AUTOMATED (09/14/16) COMPLETE CBC W/AUTO DIFF WBC (10/02/16) COMPREHEN METABOLIC PANEL (10/02/16) CT ABD & PELV W/CONTRAST (06/01/17) CT THORAX W/O DYE (06/24/15) DRAIN/INJ JOINT/BURSA W/O US (01/04/16) ELECTROCARDIOGRAM TRACING (01/22/18) EMERGENCY DEPT VISIT (04/13/15) EMERGENCY DEPT VISIT (04/13/15) EVALUATE PT USE OF INHALER (10/02/16) EVALUATION OF WHEEZING (05/03/15) GAIT TRAINING THERAPY (10/02/16) HYDRATE IV INFUSION ADD-ON (04/13/15) IIV4 VACC NO PRSV 0.5 ML IM (05/31/17) LIPID PANEL (07/22/18) METABOLIC PANEL TOTAL CA (06/13/18) MRI JNT OF LWR EXTRE W/O DYE (09/09/18) OFFICE/OUTPATIENT VISIT EST (08/22/18) OFFICE/OUTPATIENT VISIT EST (09/13/15) OFFICE/OUTPATIENT VISIT EST (11/02/14) OFFICE/OUTPATIENT VISIT NEW (01/22/18) OFFICE/OUTPATIENT VISIT NEW (03/05/14) POLYSOM 6/>YRS CPAP 4/> PARM (10/13/15) PPSV23 VACC 2 YRS+ SUBQ/IM (11/02/14) PROTHROMBIN TIME (09/14/16) PT EVAL LOW COMPLEX 20 MIN (10/02/16) RBC ANTIBODY SCREEN (10/02/16) ROUTINE VENIPUNCTURE (07/22/18) THER/PROPH/DIAG INJ IV PUSH (04/13/15) THERAPEUTIC ACTIVITIES (10/02/16) THERAPEUTIC EXERCISES (10/02/16) URINALYSIS AUTO W/O SCOPE (09/14/16) URINALYSIS AUTO W/SCOPE (05/03/16) X-RAY EXAM KNEE 4 OR MORE (08/22/18) X-RAY EXAM OF KNEE 1 OR 2 (10/02/16) X-RAY EXAM OF KNEE 3 (10/12/16) (1) S/P total knee arthroplasty SNOMED Code(s): 6768819064046, 302830417, 7961312699079 Code(s): Z96.659 - PRESENCE OF UNSPECIFIED ARTIFICIAL KNEE JOINT Current Visit: Yes Qualifiers: Laterality: right Qualified Code(s): Z96.651 - Presence of right artificial knee joint (2) CAD (coronary artery disease) SNOMED Code(s): 75377886 Code(s): I25.10 - ATHSCL HEART DISEASE OF [place] CORONARY ARTERY W/O ANG PCTRS Current Visit: No Qualifiers: Coronary Disease-Associated Artery/Lesion type: [place] artery [place] vs. transplanted heart: [place] heart Associated angina: without angina Qualified Code(s): I25.10 - Atherosclerotic heart disease of [place] coronary artery without angina pectoris (3) COPD (chronic obstructive pulmonary disease) SNOMED Code(s): 00531920 Code(s): J44.9 - CHRONIC OBSTRUCTIVE PULMONARY DISEASE, UNSPECIFIED Current Visit: No Qualifiers: Chronic bronchitis type: unspecified (4) HTN (hypertension) SNOMED Code(s): 64323246 Code(s): I10 - ESSENTIAL (PRIMARY) HYPERTENSION Current Visit: No Qualifiers: Hypertension type: essential hypertension Qualified Code(s): I10 - Essential (primary) hypertension (5) DAREN on CPAP SNOMED Code(s): 99038032 Code(s): G47.33 - OBSTRUCTIVE SLEEP APNEA (ADULT) (PEDIATRIC); Z99.89 - DEPENDENCE ON OTHER ENABLING MACHINES AND DEVICES Current Visit: No (6) Obesity, morbid, BMI 50 or higher SNOMED Code(s): 775860773, 917054967 Code(s): E66.01 - MORBID (SEVERE) OBESITY DUE TO EXCESS CALORIES Current Visit: No Problem List Initiated/Reviewed/Updated: Yes My Orders Last 24 Hours: My Active Orders 10/23/18 05:11 BMP [BASIC METABOLIC PANEL,BMP] [CHEM] AM Plan: This 72 year old male admitted with R TKA with Dr Elias, Hospitalist service consulted for medical management. 1. S/P R TKA: Orders per Orthopedics 2. HTN: Remain stable. Continue Diltiazem. Monitor. Lasix for peripheral edema. 3. CAD: Stable. Continue Crestor and ASA. 4. COPD: Stable. Continue Symbicort and Proair. 5. DAREN: Stable, CPAP at bedside. VTE prophylaxis: Recommended with deemed appropriate by orthopedics <William Garcia - Last Filed: 10/22/18 18:24> - General Info Admission Dx/Problem (Free Text): I have seen and examined the patient independently of Diana Portillo CNP. I have discussed the case with her. I have reviewed and agreed with the plan of treatment as outlined for this patient by her. Please see orders. - Patient Data Vitals - Most Recent: Last Vital Signs Temp 37.0 C 10/22/18 16:00 Pulse 88 10/22/18 16:00 Resp 16 10/22/18 16:00 BP 154/76 H 10/22/18 16:00 Pulse Ox 91 L 10/22/18 16:00 I&O - Last 24 Hours: Intake & Output 10/22/18 10/22/18 10/22/18 06:59 14:59 22:59 Intake Total 1200 1550 Output Total 400 1200 Balance 800 350 Lab Results Last 24 Hours: Laboratory Results - last 24 hr 10/22/18 10/22/18 Range/Units 07:25 07:25 Hgb 12.6 L (13.0-17.0) g/dL Hct 38.3 (38.0-50.0) % Sodium 139 (136-148) mmol/L Potassium 4.5 (3.5-5.1) mmol/L Chloride 104 (98-107) mmol/L Carbon Dioxide 30.6 (21.0-32.0) mmol/L BUN 22 H (7.0-18.0) mg/dL Creatinine 1.2 (0.8-1.3) mg/dL Est Cr Clr Drug Dosing 65.65 mL/min Estimated GFR (MDRD) 59.7 ml/min Glucose 113 H (74-106) mg/dL Calcium 8.2 L (8.5-10.1) mg/dL Med Orders - Current: Current Medications Al Hydroxide/Mg Hydroxide (Mag-Al Plus) 30 ml PO Q4H PRN PRN Reason: Indigestion Albuterol (Proventil Neb Soln) 3 mg NEB Q4H PRN PRN Reason: Wheezing Albuterol (Ventolin Hfa) 0 gm INH Q6H PRN PRN Reason: Shortness of Breath Albuterol (Proventil Neb Soln) 2.5 mg NEB Q6H PRN PRN Reason: Wheezing Aspirin (Ecotrin) 325 mg PO BID [facility] Last Admin: 10/22/18 09:25 Dose: 325 mg Atropine Sulfate (Atropine 0.1 Mg/Ml) 0.4 mg IVPUSH Q5M PRN PRN Reason: Bradycardia Bisacodyl (Dulcolax) 10 mg RECTAL DAILY PRN PRN Reason: Constipation Diphenhydramine HCl (Benadryl) 25 - 50 mg PO Q6H PRN PRN Reason: Itching Docusate Sodium (Colace) 100 mg PO BID PRN PRN Reason: Constipation Famotidine (Pepcid) 40 mg IVPUSH ONARRIVE [facility] Last Admin: 10/21/18 07:24 Dose: 40 mg Famotidine (Pepcid) 40 mg PO DAILY [facility] Last Admin: 10/22/18 09:25 Dose: 40 mg Fluticasone Propionate (Flonase) 0 gm NASBOTH DAILY [facility] Last Admin: 10/22/18 09:43 Dose: 2 sprays Furosemide (Lasix) 20 mg PO DAILY [facility] Last Admin: 10/22/18 09:24 Dose: 20 mg Hydralazine HCl (Apresoline) 5 mg IVPUSH ONETIME PRN PRN Reason: Hypertension Hydralazine HCl (Apresoline) 10 mg IVPUSH ONETIME PRN PRN Reason: Hypertension Hydromorphone HCl (Dilaudid) 0.5 - 1 mg IVPUSH Q3H PRN PRN Reason: Pain Last Admin: 10/21/18 15:23 Dose: 0.5 mg Acetaminophen 1,000 mg/ Premix 100 mls @ 400 mls/hr IV ONARRIVE [facility] Last Admin: 10/21/18 18:48 Dose: 400 mls/hr Cefazolin Sodium/Dextrose 2 gm (/ Premix) 50 mls @ 100 mls/hr IV ONCALL [facility] Last Admin: 10/22/18 00:00 Dose: 100 mls/hr Lactated Ringer's (Ringers, Lactated) 1,000 mls @ 100 mls/hr IV ASDIRECTED [facility] Last Admin: 10/22/18 04:34 Dose: 100 mls/hr Tranexamic Acid 2,000 mg/ (Sodium Chloride) 120 mls @ 600 mls/hr IV ASDIRECTED [facility] Loratadine (Claritin) 10 mg PO DAILY [facility] Last Admin: 10/22/18 09:25 Dose: 10 mg Meperidine HCl (Demerol) 12.5 mg IVPUSH ONETIME PRN PRN Reason: Shivering Meperidine HCl (Demerol) 25 mg IV ONETIME PRN PRN Reason: Shivering Metoclopramide HCl (Reglan) 10 mg IVPUSH ONETIME PRN PRN Reason: Nausea Montelukast Sodium (Singulair) 10 mg PO BEDTIME [facility] Last Admin: 04/08/19 20:28 Dose: 10 mg Naloxone HCl (Narcan) 0.1 mg IVPUSH ONETIME PRN PRN Reason: Respiratory Depression Ondansetron HCl (Zofran) 4 mg IVPUSH Q6H PRN PRN Reason: Nausea/Vomiting Ondansetron HCl (Zofran) 8 mg IVPUSH ONETIME PRN PRN Reason: Nausea Oxycodone/Acetaminophen (Percocet 325-10 Mg) 1 - 2 tab PO Q4H PRN PRN Reason: Pain Budesonide/Formoterol 160-4.5 Mcg/Puff 6 Gm Inhaler 2 each INH BID [facility] Last Admin: 10/22/18 09:19 Dose: 2 each Diltiazem 300 Mg 24 (Hr) 1 each PO QAM [facility] Last Admin: 10/22/18 12:32 Dose: 1 each Polyethylene Glycol (Miralax) 17 gm PO DAILY [facility] Last Admin: 10/22/18 09:25 Dose: 17 gm Promethazine HCl (Phenergan) 12.5 mg IM ONETIME PRN PRN Reason: Nausea Rosuvastatin Calcium (Crestor) 10 mg PO Q2D@2100 [facility] Last Admin: 10/21/18 20:29 Dose: Not Given Scopolamine (Transderm-Scop) 1.5 mg TRDERM ONARRIVE [facility] Last Admin: 10/21/18 07:31 Dose: 1.5 mg Scopolamine (Transderm-Scop) 1.5 mg TRDERM Q72H PRN PRN Reason: Nausea Sodium Chloride (Saline Flush) 10 ml FLUSH ASDIRECTED PRN PRN Reason: Keep Vein Open Sodium Chloride (Saline Flush) 2.5 ml FLUSH ASDIRECTED PRN PRN Reason: Keep Vein Open Tamsulosin HCl (Flomax) 0.4 mg PO BEDTIME [facility] Last Admin: 10/21/18 20:28 Dose: 0.4 mg Discontinued Medications Hydrocodone Bitart/Acetaminophen ([place] 325-5 Mg) 2 tab PO Q6H PRN PRN Reason: Pain (moderate 4-6) Last Admin: 10/21/18 22:24 Dose: 2 tab Cefazolin Sodium (Ancef) Confirm Administered Dose 2 gm .ROUTE .STK-MED ONE Stop: 10/21/18 08:31 Ephedrine Sulfate (Ephedrine Sulfate) Confirm Administered Dose 50 mg .ROUTE .STK-MED ONE Stop: 10/21/18 08:41 Fentanyl (Sublimaze) Confirm Administered Dose 100 mcg .ROUTE .STK-MED ONE Stop: 10/21/18 07:11 Fentanyl (Sublimaze) 50 mcg IVPUSH Q5M PRN PRN Reason: Pain (severe 7-10) Stop: 10/22/18 10:08 Hydromorphone HCl (Dilaudid) 0.25 mg IVPUSH Q10M PRN PRN Reason: Pain (severe 7-10) Stop: 10/22/18 10:08 Ropivacaine 49.25 ml/Ketorolac Tromethamine 30 mg/Epinephrine HCl 0.5 mg/ Clonidine HCl 80 mcg/ Sodium Chloride 75 mls @ 50 mls/sec INJECT ASDIRECTED [facility] Sodium Chloride (Normal Saline) Confirm Administered Dose 20 mls @ as directed .ROUTE .STK-MED ONE Stop: 10/21/18 08:31 Acetaminophen 1,000 mg/ Premix 100 mls @ 400 mls/hr IV Q6H [facility] Stop: 10/22/18 01:14 Last Admin: 10/21/18 14:05 Dose: Not Given Cefazolin Sodium/Dextrose 2 gm (/ Premix) 50 mls @ 100 mls/hr IV Q8H [facility] Stop: 10/22/18 00:29 Last Admin: 10/22/18 01:29 Dose: 100 mls/hr Acetaminophen 1,000 mg/ Premix 100 mls @ 400 mls/hr IV Q6H [facility] Stop: 10/22/18 01:14 Last Admin: 10/22/18 01:31 Dose: 400 mls/hr Labetalol HCl (Normodyne) 10 mg IVPUSH Q6H PRN PRN Reason: Hypertension Stop: 10/22/18 10:08 Lidocaine (Xylocaine-Mpf 2%) Confirm Administered Dose 5 ml .ROUTE .STK-MED ONE Stop: 10/21/18 07:11 Midazolam HCl (Versed 1 Mg/Ml) Confirm Administered Dose 2 mg .ROUTE .STK-MED ONE Stop: 10/21/18 07:11 Midazolam HCl (Versed 1 Mg/Ml) Confirm Administered Dose 2 mg .ROUTE .STK-MED ONE Stop: 10/21/18 09:42 Morphine Sulfate (Morphine) 4 mg IVPUSH Q10M PRN PRN Reason: Pain (severe 7-10) Stop: 10/22/18 10:08 Oxycodone HCl (Oxycodone) 5 - 10 mg PO Q4H PRN PRN Reason: Pain Stop: 10/22/18 06:00 Last Admin: 10/22/18 06:52 Dose: 5 mg Oxycodone/Acetaminophen (Percocet 325-5 Mg) 1 - 2 tab PO Q4H PRN PRN Reason: Pain Last Admin: 10/22/18 13:11 Dose: 2 tab Diltiazem 300 Mg 24 (Hr) 1 each PO QAM [facility] Last Admin: 10/22/18 10:19 Dose: Not Given Propofol (Diprivan 20 Ml) Confirm Administered Dose 400 mg .ROUTE .STK-MED ONE Stop: 10/21/18 07:11 Propofol (Diprivan 20 Ml) Confirm Administered Dose 400 mg .ROUTE .STK-MED ONE Stop: 10/21/18 08:51 Rosuvastatin Calcium (Crestor) 10 mg PO Q2D@0900 [facility] Last Admin: 10/21/18 13:51 Dose: Not Given Tranexamic Acid (Cyklokapron) Confirm Administered Dose 2,000 mg .ROUTE .STK- MED ONE Stop: 10/21/18 07:55 Consult PN Assessment/Plan Procedures: Procedures AIRWAY INHALATION TREATMENT (10/02/16) ALANINE AMINO (ALT) (SGPT) (11/02/14) ASSAY OF NATRIURETIC PEPTIDE (04/23/15) BLOOD TYPING SEROLOGIC ABO (10/02/16) BLOOD TYPING SEROLOGIC RH(D) (10/02/16) C-REACTIVE PROTEIN (04/13/15) CARDIAC REHAB/MONITOR (11/03/15) CHEST X-RAY 2VW FRONTAL&LATL (09/14/16) COLONOSCOPY AND BIOPSY (02/01/18) COMPLETE CBC AUTOMATED (09/14/16) COMPLETE CBC W/AUTO DIFF WBC (10/02/16) COMPREHEN METABOLIC PANEL (10/02/16) CT ABD & PELV W/CONTRAST (06/01/17) CT THORAX W/O DYE (06/24/15) DRAIN/INJ JOINT/BURSA W/O US (01/04/16) ELECTROCARDIOGRAM TRACING (01/22/18) EMERGENCY DEPT VISIT (04/13/15) EMERGENCY DEPT VISIT (04/13/15) EVALUATE PT USE OF INHALER (10/02/16) EVALUATION OF WHEEZING (05/03/15) GAIT TRAINING THERAPY (10/02/16) HYDRATE IV INFUSION ADD-ON (04/13/15) IIV4 VACC NO PRSV 0.5 ML IM (05/31/17) LIPID PANEL (07/22/18) METABOLIC PANEL TOTAL CA (06/13/18) MRI JNT OF LWR EXTRE W/O DYE (09/09/18) OFFICE/OUTPATIENT VISIT EST (08/22/18) OFFICE/OUTPATIENT VISIT EST (09/13/15) OFFICE/OUTPATIENT VISIT EST (11/02/14) OFFICE/OUTPATIENT VISIT NEW (01/22/18) OFFICE/OUTPATIENT VISIT NEW (03/05/14) POLYSOM 6/>YRS CPAP 4/> PARM (10/13/15) PPSV23 VACC 2 YRS+ SUBQ/IM (11/02/14) PROTHROMBIN TIME (09/14/16) PT EVAL LOW COMPLEX 20 MIN (10/02/16) RBC ANTIBODY SCREEN (10/02/16) ROUTINE VENIPUNCTURE (07/22/18) THER/PROPH/DIAG INJ IV PUSH (04/13/15) THERAPEUTIC ACTIVITIES (10/02/16) THERAPEUTIC EXERCISES (10/02/16) URINALYSIS AUTO W/O SCOPE (09/14/16) URINALYSIS AUTO W/SCOPE (05/03/16) X-RAY EXAM KNEE 4 OR MORE (08/22/18) X-RAY EXAM OF KNEE 1 OR 2 (10/02/16) X-RAY EXAM OF KNEE 3 (10/12/16)
[2018-10-22] MEDS: Fluticasone Propionate Nasal Spray 16 GM Bottle NASBOTH SCH (09:43)
[2018-10-22] MEDS: DILTIAZEM 300 MG PO SCH (12:32)
[2018-10-22] MEDS: Acetaminophen/oxyCODONE 325-10 MG Tab PO PRN (18:30)
[2018-10-22] MEDS: Montelukast 10 MG Tab PO SCH (20:03)
[2018-10-22] MEDS: Tamsulosin 0.4 MG Cap.ER PO SCH (20:03)
[2018-10-22] MEDS: Rosuvastatin 10 MG Tab PO SCH (20:08)
[2018-10-23] MEDS: Acetaminophen/oxyCODONE 325-10 MG Tab PO PRN ×2 (01:09→08:44)
--- NOTE | 2018-10-23 04:53 | PCM48HPAN ---
Post Anesthesia Note - EVALUATION WITHIN 48HRS OF ANESTHETIC Vital Signs in Normal Range: Yes Patient Participated in Evaluation: Yes Respiratory Function Stable: Yes Airway Patent: Yes Cardiovascular Function Stable: Yes Hydration Status Stable: Yes Pain Control Satisfactory: Yes Nausea and Vomiting Control Satisfactory: Yes Mental Status Recovered: Yes Resp Rate: 18
[2018-10-23 08:09] VITALS: BP 122/67
[2018-10-23] MEDS: Famotidine 20 MG Tab PO SCH (08:44)
[2018-10-23] MEDS: Furosemide 20 MG Tab PO SCH (08:44)
[2018-10-23] MEDS: Aspirin 325 MG Tab.EC PO SCH (08:45)
[2018-10-23] MEDS: Fluticasone Propionate Nasal Spray 16 GM Bottle NASBOTH SCH (08:46)
[2018-10-23] MEDS: Budesonide/Formoterol 160-4.5 MCG/Puff 6 GM Inhaler INH SCH (08:46)
[2018-10-23] MEDS: Polyethylene Glycol 3350 Powder 17 GM Packet PO SCH (08:47)
[2018-10-23] MEDS: DILTIAZEM 300 MG PO SCH (08:49)
--- NOTE | 2018-10-23 09:12 | PCM.CONSN ---
<Diana Portillo M - Last Filed: 10/23/18 09:07> - General Info Date of Service: 10/23/18 Admission Dx/Problem (Free Text): R Total knee replacement Subjective Update: Doing well today. Eager to go home. No chest pain or SOB. No other concerns. Functional Status: Reports: Pain Controlled, Tolerating Diet, Ambulating, Urinating - Review of Systems General: Reports: No Symptoms. Denies: Fever, Weakness, Fatigue HEENT: Reports: No Symptoms Pulmonary: Reports: No Symptoms. Denies: Shortness of Breath Cardiovascular: Reports: No Symptoms. Denies: Chest Pain Gastrointestinal: Reports: No Symptoms. Denies: Abdominal Pain, Nausea, Vomiting Genitourinary: Reports: No Symptoms. Denies: Dysuria, Frequency, Burning Musculoskeletal: Reports: Joint Pain (R knee, tolerable) Skin: Reports: No Symptoms Neurological: Reports: No Symptoms Psychiatric: Reports: No Symptoms - Patient Data Vitals - Most Recent: Last Vital Signs Temp 97.9 F 10/23/18 08:00 Pulse 80 10/23/18 08:00 Resp 16 10/23/18 08:00 BP 122/67 10/23/18 08:00 Pulse Ox 95 10/23/18 08:00 Weight - Most Recent: 159.665 kg I&O - Last 24 Hours: Intake & Output 10/22/18 10/23/18 10/23/18 22:59 06:59 14:59 Intake Total 1550 1100 Output Total 1200 1075 Balance 350 25 Lab Results Last 24 Hours: Laboratory Results - last 24 hr 10/23/18 10/23/18 Range/Units 04:32 04:32 Hgb 12.4 L (13.0-17.0) g/dL Hct 38.1 (38.0-50.0) % Sodium 139 (136-148) mmol/L Potassium 4.7 (3.5-5.1) mmol/L Chloride 102 (98-107) mmol/L Carbon Dioxide 29.8 (21.0-32.0) mmol/L BUN 20 H (7.0-18.0) mg/dL Creatinine 1.3 (0.8-1.3) mg/dL Est Cr Clr Drug Dosing 60.60 mL/min Estimated GFR (MDRD) 54.4 ml/min Glucose 115 H (74-106) mg/dL Calcium 8.5 (8.5-10.1) mg/dL Med Orders - Current: Current Medications Al Hydroxide/Mg Hydroxide (Mag-Al Plus) 30 ml PO Q4H PRN PRN Reason: Indigestion Albuterol (Proventil Neb Soln) 3 mg NEB Q4H PRN PRN Reason: Wheezing Albuterol (Ventolin Hfa) 0 gm INH Q6H PRN PRN Reason: Shortness of Breath Albuterol (Proventil Neb Soln) 2.5 mg NEB Q6H PRN PRN Reason: Wheezing Aspirin (Ecotrin) 325 mg PO BID [facility] Last Admin: 10/23/18 08:45 Dose: 325 mg Atropine Sulfate (Atropine 0.1 Mg/Ml) 0.4 mg IVPUSH Q5M PRN PRN Reason: Bradycardia Bisacodyl (Dulcolax) 10 mg RECTAL DAILY PRN PRN Reason: Constipation Diphenhydramine HCl (Benadryl) 25 - 50 mg PO Q6H PRN PRN Reason: Itching Docusate Sodium (Colace) 100 mg PO BID PRN PRN Reason: Constipation Famotidine (Pepcid) 40 mg IVPUSH ONARRIVE [facility] Last Admin: 10/21/18 07:24 Dose: 40 mg Famotidine (Pepcid) 40 mg PO DAILY [facility] Last Admin: 10/23/18 08:44 Dose: 40 mg Fluticasone Propionate (Flonase) 0 gm NASBOTH DAILY [facility] Last Admin: 10/23/18 08:46 Dose: 1 sprays Furosemide (Lasix) 20 mg PO DAILY [facility] Last Admin: 10/23/18 08:44 Dose: 20 mg Hydralazine HCl (Apresoline) 5 mg IVPUSH ONETIME PRN PRN Reason: Hypertension Hydralazine HCl (Apresoline) 10 mg IVPUSH ONETIME PRN PRN Reason: Hypertension Hydromorphone HCl (Dilaudid) 0.5 - 1 mg IVPUSH Q3H PRN PRN Reason: Pain Last Admin: 10/21/18 15:23 Dose: 0.5 mg Acetaminophen 1,000 mg/ Premix 100 mls @ 400 mls/hr IV ONARRIVE [facility] Last Admin: 10/21/18 18:48 Dose: 400 mls/hr Cefazolin Sodium/Dextrose 2 gm (/ Premix) 50 mls @ 100 mls/hr IV ONCALL [facility] Last Admin: 10/22/18 00:00 Dose: 100 mls/hr Lactated Ringer's (Ringers, Lactated) 1,000 mls @ 100 mls/hr IV ASDIRECTED [facility] Last Admin: 10/22/18 04:34 Dose: 100 mls/hr Tranexamic Acid 2,000 mg/ (Sodium Chloride) 120 mls @ 600 mls/hr IV ASDIRECTED [facility] Loratadine (Claritin) 10 mg PO DAILY [facility] Last Admin: 10/22/18 09:25 Dose: 10 mg Meperidine HCl (Demerol) 12.5 mg IVPUSH ONETIME PRN PRN Reason: Shivering Meperidine HCl (Demerol) 25 mg IV ONETIME PRN PRN Reason: Shivering Metoclopramide HCl (Reglan) 10 mg IVPUSH ONETIME PRN PRN Reason: Nausea Montelukast Sodium (Singulair) 10 mg PO BEDTIME [facility] Last Admin: 10/22/18 20:03 Dose: 10 mg Naloxone HCl (Narcan) 0.1 mg IVPUSH ONETIME PRN PRN Reason: Respiratory Depression Ondansetron HCl (Zofran) 4 mg IVPUSH Q6H PRN PRN Reason: Nausea/Vomiting Ondansetron HCl (Zofran) 8 mg IVPUSH ONETIME PRN PRN Reason: Nausea Oxycodone/Acetaminophen (Percocet 325-10 Mg) 1 - 2 tab PO Q4H PRN PRN Reason: Pain Last Admin: 10/23/18 08:44 Dose: 2 tab Budesonide/Formoterol 160-4.5 Mcg/Puff 6 Gm Inhaler 2 each INH BID [facility] Last Admin: 10/23/18 08:46 Dose: 2 each Diltiazem 300 Mg 24 (Hr) 1 each PO QAM [facility] Last Admin: 10/23/18 08:49 Dose: 1 each Polyethylene Glycol (Miralax) 17 gm PO DAILY [facility] Last Admin: 10/23/18 08:47 Dose: 17 gm Promethazine HCl (Phenergan) 12.5 mg IM ONETIME PRN PRN Reason: Nausea Rosuvastatin Calcium (Crestor) 10 mg PO Q2D@2100 [facility] Last Admin: 10/22/18 20:08 Dose: 10 mg Scopolamine (Transderm-Scop) 1.5 mg TRDERM ONARRIVE [facility] Last Admin: 10/21/18 07:31 Dose: 1.5 mg Scopolamine (Transderm-Scop) 1.5 mg TRDERM Q72H PRN PRN Reason: Nausea Sodium Chloride (Saline Flush) 10 ml FLUSH ASDIRECTED PRN PRN Reason: Keep Vein Open Sodium Chloride (Saline Flush) 2.5 ml FLUSH ASDIRECTED PRN PRN Reason: Keep Vein Open Tamsulosin HCl (Flomax) 0.4 mg PO BEDTIME [facility] Last Admin: 10/22/18 20:03 Dose: 0.4 mg Discontinued Medications Hydrocodone Bitart/Acetaminophen ([place] 325-5 Mg) 2 tab PO Q6H PRN PRN Reason: Pain (moderate 4-6) Last Admin: 10/21/18 22:24 Dose: 2 tab Cefazolin Sodium (Ancef) Confirm Administered Dose 2 gm .ROUTE .STK-MED ONE Stop: 10/21/18 08:31 Ephedrine Sulfate (Ephedrine Sulfate) Confirm Administered Dose 50 mg .ROUTE .STK-MED ONE Stop: 10/21/18 08:41 Fentanyl (Sublimaze) Confirm Administered Dose 100 mcg .ROUTE .STK-MED ONE Stop: 10/21/18 07:11 Fentanyl (Sublimaze) 50 mcg IVPUSH Q5M PRN PRN Reason: Pain (severe 7-10) Stop: 10/22/18 10:08 Hydromorphone HCl (Dilaudid) 0.25 mg IVPUSH Q10M PRN PRN Reason: Pain (severe 7-10) Stop: 10/22/18 10:08 Ropivacaine 49.25 ml/Ketorolac Tromethamine 30 mg/Epinephrine HCl 0.5 mg/ Clonidine HCl 80 mcg/ Sodium Chloride 75 mls @ 50 mls/sec INJECT ASDIRECTED [facility] Sodium Chloride (Normal Saline) Confirm Administered Dose 20 mls @ as directed .ROUTE .STK-MED ONE Stop: 10/21/18 08:31 Acetaminophen 1,000 mg/ Premix 100 mls @ 400 mls/hr IV Q6H [facility] Stop: 10/22/18 01:14 Last Admin: 10/21/18 14:05 Dose: Not Given Cefazolin Sodium/Dextrose 2 gm (/ Premix) 50 mls @ 100 mls/hr IV Q8H [facility] Stop: 10/22/18 00:29 Last Admin: 10/22/18 01:29 Dose: 100 mls/hr Acetaminophen 1,000 mg/ Premix 100 mls @ 400 mls/hr IV Q6H [facility] Stop: 10/22/18 01:14 Last Admin: 10/22/18 01:31 Dose: 400 mls/hr Labetalol HCl (Normodyne) 10 mg IVPUSH Q6H PRN PRN Reason: Hypertension Stop: 10/22/18 10:08 Lidocaine (Xylocaine-Mpf 2%) Confirm Administered Dose 5 ml .ROUTE .STK-MED ONE Stop: 10/21/18 07:11 Midazolam HCl (Versed 1 Mg/Ml) Confirm Administered Dose 2 mg .ROUTE .STK-MED ONE Stop: 10/21/18 07:11 Midazolam HCl (Versed 1 Mg/Ml) Confirm Administered Dose 2 mg .ROUTE .STK-MED ONE Stop: 10/21/18 09:42 Morphine Sulfate (Morphine) 4 mg IVPUSH Q10M PRN PRN Reason: Pain (severe 7-10) Stop: 10/22/18 10:08 Oxycodone HCl (Oxycodone) 5 - 10 mg PO Q4H PRN PRN Reason: Pain Stop: 10/22/18 06:00 Last Admin: 10/22/18 06:52 Dose: 5 mg Oxycodone/Acetaminophen (Percocet 325-5 Mg) 1 - 2 tab PO Q4H PRN PRN Reason: Pain Last Admin: 10/22/18 13:11 Dose: 2 tab Diltiazem 300 Mg 24 (Hr) 1 each PO QAM [facility] Last Admin: 10/22/18 10:19 Dose: Not Given Propofol (Diprivan 20 Ml) Confirm Administered Dose 400 mg .ROUTE .STK-MED ONE Stop: 10/21/18 07:11 Propofol (Diprivan 20 Ml) Confirm Administered Dose 400 mg .ROUTE .STK-MED ONE Stop: 10/21/18 08:51 Rosuvastatin Calcium (Crestor) 10 mg PO Q2D@0900 [facility] Last Admin: 10/21/18 13:51 Dose: Not Given Tranexamic Acid (Cyklokapron) Confirm Administered Dose 2,000 mg .ROUTE .[employer]- MED ONE Stop: 10/21/18 07:55 - Exam General: Alert, Oriented, Cooperative, No Acute Distress Lungs: Clear to Auscultation, Normal Respiratory Effort Cardiovascular: Regular Rate, Regular Rhythm GI/Abdominal Exam: Normal Bowel Sounds, Soft, Non-Tender, No Organomegaly Extremities: Normal Inspection, Normal Range of Motion, Pedal Edema (+1 pitting edema to BLE) Neurological: No New Focal Deficit Psy/Mental Status: Alert, Normal Affect, Normal Mood Consult PN Assessment/Plan Procedures: Procedures AIRWAY INHALATION TREATMENT (10/02/16) ALANINE AMINO (ALT) (SGPT) (11/02/14) ASSAY OF NATRIURETIC PEPTIDE (04/23/15) BLOOD TYPING SEROLOGIC ABO (10/02/16) BLOOD TYPING SEROLOGIC RH(D) (10/02/16) C-REACTIVE PROTEIN (04/13/15) CARDIAC REHAB/MONITOR (11/03/15) CHEST X-RAY 2VW FRONTAL&LATL (09/14/16) COLONOSCOPY AND BIOPSY (02/01/18) COMPLETE CBC AUTOMATED (09/14/16) COMPLETE CBC W/AUTO DIFF WBC (10/02/16) COMPREHEN METABOLIC PANEL (10/02/16) CT ABD & PELV W/CONTRAST (06/01/17) CT THORAX W/O DYE (06/24/15) DRAIN/INJ JOINT/BURSA W/O US (01/04/16) ELECTROCARDIOGRAM TRACING (01/22/18) EMERGENCY DEPT VISIT (04/13/15) EMERGENCY DEPT VISIT (04/13/15) EVALUATE PT USE OF INHALER (10/02/16) EVALUATION OF WHEEZING (05/03/15) GAIT TRAINING THERAPY (10/02/16) HYDRATE IV INFUSION ADD-ON (04/13/15) IIV4 VACC NO PRSV 0.5 ML IM (05/31/17) LIPID PANEL (07/22/18) METABOLIC PANEL TOTAL CA (06/13/18) MRI JNT OF LWR EXTRE W/O DYE (09/09/18) OFFICE/OUTPATIENT VISIT EST (08/22/18) OFFICE/OUTPATIENT VISIT EST (09/13/15) OFFICE/OUTPATIENT VISIT EST (11/02/14) OFFICE/OUTPATIENT VISIT NEW (01/22/18) OFFICE/OUTPATIENT VISIT NEW (03/05/14) POLYSOM 6/>YRS CPAP 4/> PARM (10/13/15) PPSV23 VACC 2 YRS+ SUBQ/IM (11/02/14) PROTHROMBIN TIME (09/14/16) PT EVAL LOW COMPLEX 20 MIN (10/02/16) RBC ANTIBODY SCREEN (10/02/16) ROUTINE VENIPUNCTURE (07/22/18) THER/PROPH/DIAG INJ IV PUSH (04/13/15) THERAPEUTIC ACTIVITIES (10/02/16) THERAPEUTIC EXERCISES (10/02/16) URINALYSIS AUTO W/O SCOPE (09/14/16) URINALYSIS AUTO W/SCOPE (05/03/16) X-RAY EXAM KNEE 4 OR MORE (08/22/18) X-RAY EXAM OF KNEE 1 OR 2 (10/02/16) X-RAY EXAM OF KNEE 3 (10/12/16) (1) S/P total knee arthroplasty SNOMED Code(s): 6452288134579, 075537732, 1901969224348 Code(s): Z96.659 - PRESENCE OF UNSPECIFIED ARTIFICIAL KNEE JOINT Qualifiers: (2) CAD (coronary artery disease) SNOMED Code(s): 18341407 Code(s): I25.10 - ATHSCL HEART DISEASE OF [place] CORONARY ARTERY W/O ANG PCTRS Qualifiers: (3) COPD (chronic obstructive pulmonary disease) SNOMED Code(s): 11275934 Code(s): J44.9 - CHRONIC OBSTRUCTIVE PULMONARY DISEASE, UNSPECIFIED Qualifiers: (4) HTN (hypertension) SNOMED Code(s): 26667952 Code(s): I10 - ESSENTIAL (PRIMARY) HYPERTENSION Qualifiers: (5) DAREN on CPAP SNOMED Code(s): 76703592 Code(s): G47.33 - OBSTRUCTIVE SLEEP APNEA (ADULT) (PEDIATRIC); Z99.89 - DEPENDENCE ON OTHER ENABLING MACHINES AND DEVICES (6) Obesity, morbid, BMI 50 or higher SNOMED Code(s): 357133592, 218339513 Code(s): E66.01 - MORBID (SEVERE) OBESITY DUE TO EXCESS CALORIES Problem List Initiated/Reviewed/Updated: Yes Plan: This 72 year old male admitted with R TKA with Dr Elias, Hospitalist service consulted for medical management. 1. S/P R TKA: Orders per Orthopedics 2. HTN: Remain stable. Continue Diltiazem. Monitor. Lasix for peripheral edema. 3. CAD: Stable. Continue Crestor and ASA. 4. COPD: Stable. Continue Symbicort and Proair. 5. DAREN: Stable, CPAP at bedside. VTE prophylaxis: Recommended with deemed appropriate by orthopedics Ok with discharge from medical stand point, <Wliliam Garcia - Last Filed: 10/23/18 13:03> - General Info Admission Dx/Problem (Free Text): I have seen and examined the patient independently of Diana Portillo CNP. I have discussed the case with her. I have reviewed and agreed with the plan of treatment as outlined for this patient by her. Please see orders. - Patient Data Vitals - Most Recent: Last Vital Signs Temp 36.6 C 10/23/18 08:00 Pulse 80 10/23/18 08:00 Resp 16 10/23/18 08:00 BP 122/67 10/23/18 08:00 Pulse Ox 95 10/23/18 08:00 I&O - Last 24 Hours: Intake & Output 10/22/18 10/23/18 10/23/18 22:59 06:59 14:59 Intake Total 1550 1100 500 Output Total 1200 1075 Balance 350 25 500 Lab Results Last 24 Hours: Laboratory Results - last 24 hr 10/23/18 10/23/18 Range/Units 04:32 04:32 Hgb 12.4 L (13.0-17.0) g/dL Hct 38.1 (38.0-50.0) % Sodium 139 (136-148) mmol/L Potassium 4.7 (3.5-5.1) mmol/L Chloride 102 (98-107) mmol/L Carbon Dioxide 29.8 (21.0-32.0) mmol/L BUN 20 H (7.0-18.0) mg/dL Creatinine 1.3 (0.8-1.3) mg/dL Est Cr Clr Drug Dosing 60.60 mL/min Estimated GFR (MDRD) 54.4 ml/min Glucose 115 H (74-106) mg/dL Calcium 8.5 (8.5-10.1) mg/dL Med Orders - Current: Current Medications Discontinued Medications Hydrocodone Bitart/Acetaminophen ([place] 325-5 Mg) 2 tab PO Q6H PRN PRN Reason: Pain (moderate 4-6) Last Admin: 10/21/18 22:24 Dose: 2 tab Al Hydroxide/Mg Hydroxide (Mag-Al Plus) 30 ml PO Q4H PRN PRN Reason: Indigestion Albuterol (Proventil Neb Soln) 3 mg NEB Q4H PRN PRN Reason: Wheezing Albuterol (Ventolin Hfa) 0 gm INH Q6H PRN PRN Reason: Shortness of Breath Albuterol (Proventil Neb Soln) 2.5 mg NEB Q6H PRN PRN Reason: Wheezing Aspirin (Ecotrin) 325 mg PO BID [facility] Last Admin: 10/23/18 08:45 Dose: 325 mg Atropine Sulfate (Atropine 0.1 Mg/Ml) 0.4 mg IVPUSH Q5M PRN PRN Reason: Bradycardia Bisacodyl (Dulcolax) 10 mg RECTAL DAILY PRN PRN Reason: Constipation Cefazolin Sodium (Ancef) Confirm Administered Dose 2 gm .ROUTE .STK-MED ONE Stop: 10/21/18 08:31 Diphenhydramine HCl (Benadryl) 25 - 50 mg PO Q6H PRN PRN Reason: Itching Docusate Sodium (Colace) 100 mg PO BID PRN PRN Reason: Constipation Ephedrine Sulfate (Ephedrine Sulfate) Confirm Administered Dose 50 mg .ROUTE .STK-MED ONE Stop: 10/21/18 08:41 Famotidine (Pepcid) 40 mg IVPUSH ONARRIVE [facility] Last Admin: 10/21/18 07:24 Dose: 40 mg Famotidine (Pepcid) 40 mg PO DAILY [facility] Last Admin: 10/23/18 08:44 Dose: 40 mg Fentanyl (Sublimaze) Confirm Administered Dose 100 mcg .ROUTE .STK-MED ONE Stop: 10/21/18 07:11 Fentanyl (Sublimaze) 50 mcg IVPUSH Q5M PRN PRN Reason: Pain (severe 7-10) Stop: 10/22/18 10:08 Fluticasone Propionate (Flonase) 0 gm NASBOTH DAILY [facility] Last Admin: 10/23/18 08:46 Dose: 1 sprays Furosemide (Lasix) 20 mg PO DAILY [facility] Last Admin: 10/23/18 08:44 Dose: 20 mg Hydralazine HCl (Apresoline) 5 mg IVPUSH ONETIME PRN PRN Reason: Hypertension Hydralazine HCl (Apresoline) 10 mg IVPUSH ONETIME PRN PRN Reason: Hypertension Hydromorphone HCl (Dilaudid) 0.5 - 1 mg IVPUSH Q3H PRN PRN Reason: Pain Last Admin: 10/21/18 15:23 Dose: 0.5 mg Hydromorphone HCl (Dilaudid) 0.25 mg IVPUSH Q10M PRN PRN Reason: Pain (severe 7-10) Stop: 10/22/18 10:08 Acetaminophen 1,000 mg/ Premix 100 mls @ 400 mls/hr IV ONARRIVE [facility] Last Admin: 10/21/18 18:48 Dose: 400 mls/hr Cefazolin Sodium/Dextrose 2 gm (/ Premix) 50 mls @ 100 mls/hr IV ONCALL [facility] Last Admin: 10/22/18 00:00 Dose: 100 mls/hr Ropivacaine 49.25 ml/Ketorolac Tromethamine 30 mg/Epinephrine HCl 0.5 mg/ Clonidine HCl 80 mcg/ Sodium Chloride 75 mls @ 50 mls/sec INJECT ASDIRECTED [facility] Lactated Ringer's (Ringers, Lactated) 1,000 mls @ 100 mls/hr IV ASDIRECTED [facility] Last Admin: 10/22/18 04:34 Dose: 100 mls/hr Tranexamic Acid 2,000 mg/ (Sodium Chloride) 120 mls @ 600 mls/hr IV ASDIRECTED [facility] Sodium Chloride (Normal Saline) Confirm Administered Dose 20 mls @ as directed .ROUTE .STK-MED ONE Stop: 10/21/18 08:31 Acetaminophen 1,000 mg/ Premix 100 mls @ 400 mls/hr IV Q6H [facility] Stop: 10/22/18 01:14 Last Admin: 10/21/18 14:05 Dose: Not Given Cefazolin Sodium/Dextrose 2 gm (/ Premix) 50 mls @ 100 mls/hr IV Q8H [facility] Stop: 10/22/18 00:29 Last Admin: 10/22/18 01:29 Dose: 100 mls/hr Acetaminophen 1,000 mg/ Premix 100 mls @ 400 mls/hr IV Q6H [facility] Stop: 10/22/18 01:14 Last Admin: 10/22/18 01:31 Dose: 400 mls/hr Labetalol HCl (Normodyne) 10 mg IVPUSH Q6H PRN PRN Reason: Hypertension Stop: 10/22/18 10:08 Lidocaine (Xylocaine-Mpf 2%) Confirm Administered Dose 5 ml .ROUTE .STK-MED ONE Stop: 10/21/18 07:11 Loratadine (Claritin) 10 mg PO DAILY [facility] Last Admin: 10/23/18 11:34 Dose: Not Given Meperidine HCl (Demerol) 12.5 mg IVPUSH ONETIME PRN PRN Reason: Shivering Meperidine HCl (Demerol) 25 mg IV ONETIME PRN PRN Reason: Shivering Metoclopramide HCl (Reglan) 10 mg IVPUSH ONETIME PRN PRN Reason: Nausea Midazolam HCl (Versed 1 Mg/Ml) Confirm Administered Dose 2 mg .ROUTE .STK-MED ONE Stop: 10/21/18 07:11 Midazolam HCl (Versed 1 Mg/Ml) Confirm Administered Dose 2 mg .ROUTE .STK-MED ONE Stop: 10/21/18 09:42 Montelukast Sodium (Singulair) 10 mg PO BEDTIME [facility] Last Admin: 10/22/18 20:03 Dose: 10 mg Morphine Sulfate (Morphine) 4 mg IVPUSH Q10M PRN PRN Reason: Pain (severe 7-10) Stop: 10/22/18 10:08 Naloxone HCl (Narcan) 0.1 mg IVPUSH ONETIME PRN PRN Reason: Respiratory Depression Ondansetron HCl (Zofran) 4 mg IVPUSH Q6H PRN PRN Reason: Nausea/Vomiting Ondansetron HCl (Zofran) 8 mg IVPUSH ONETIME PRN PRN Reason: Nausea Oxycodone HCl (Oxycodone) 5 - 10 mg PO Q4H PRN PRN Reason: Pain Stop: 10/22/18 06:00 Last Admin: 10/22/18 06:52 Dose: 5 mg Oxycodone/Acetaminophen (Percocet 325-5 Mg) 1 - 2 tab PO Q4H PRN PRN Reason: Pain Last Admin: 10/22/18 13:11 Dose: 2 tab Oxycodone/Acetaminophen (Percocet 325-10 Mg) 1 - 2 tab PO Q4H PRN PRN Reason: Pain Last Admin: 10/23/18 08:44 Dose: 2 tab Budesonide/Formoterol 160-4.5 Mcg/Puff 6 Gm Inhaler 2 each INH BID [facility] Last Admin: 10/23/18 08:46 Dose: 2 each Diltiazem 300 Mg 24 (Hr) 1 each PO QAM [facility] Last Admin: 10/22/18 10:19 Dose: Not Given Diltiazem 300 Mg 24 (Hr) 1 each PO QAM [facility] Last Admin: 10/23/18 08:49 Dose: 1 each Polyethylene Glycol (Miralax) 17 gm PO DAILY [facility] Last Admin: 10/23/18 08:47 Dose: 17 gm Promethazine HCl (Phenergan) 12.5 mg IM ONETIME PRN PRN Reason: Nausea Propofol (Diprivan 20 Ml) Confirm Administered Dose 400 mg .ROUTE .STK-MED ONE Stop: 10/21/18 07:11 Propofol (Diprivan 20 Ml) Confirm Administered Dose 400 mg .ROUTE .STK-MED ONE Stop: 10/21/18 08:51 Rosuvastatin Calcium (Crestor) 10 mg PO Q2D@0900 [facility] Last Admin: 10/21/18 13:51 Dose: Not Given Rosuvastatin Calcium (Crestor) 10 mg PO Q2D@2100 [facility] Last Admin: 10/22/18 20:08 Dose: 10 mg Scopolamine (Transderm-Scop) 1.5 mg TRDERM ONARRIVE [facility] Last Admin: 10/21/18 07:31 Dose: 1.5 mg Scopolamine (Transderm-Scop) 1.5 mg TRDERM Q72H PRN PRN Reason: Nausea Sodium Chloride (Saline Flush) 10 ml FLUSH ASDIRECTED PRN PRN Reason: Keep Vein Open Sodium Chloride (Saline Flush) 2.5 ml FLUSH ASDIRECTED PRN PRN Reason: Keep Vein Open Tamsulosin HCl (Flomax) 0.4 mg PO BEDTIME [facility] Last Admin: 10/22/18 20:03 Dose: 0.4 mg Tranexamic Acid (Cyklokapron) Confirm Administered Dose 2,000 mg .ROUTE .STK- MED ONE Stop: 10/21/18 07:55 Consult PN Assessment/Plan Procedures: Procedures AIRWAY INHALATION TREATMENT (10/02/16) ALANINE AMINO (ALT) (SGPT) (11/02/14) ASSAY OF NATRIURETIC PEPTIDE (04/23/15) BLOOD TYPING SEROLOGIC ABO (10/02/16) BLOOD TYPING SEROLOGIC RH(D) (10/02/16) C-REACTIVE PROTEIN (04/13/15) CARDIAC REHAB/MONITOR (11/03/15) CHEST X-RAY 2VW FRONTAL&LATL (09/14/16) COLONOSCOPY AND BIOPSY (02/01/18) COMPLETE CBC AUTOMATED (09/14/16) COMPLETE CBC W/AUTO DIFF WBC (10/02/16) COMPREHEN METABOLIC PANEL (10/02/16) CT ABD & PELV W/CONTRAST (06/01/17) CT THORAX W/O DYE (06/24/15) DRAIN/INJ JOINT/BURSA W/O US (01/04/16) ELECTROCARDIOGRAM TRACING (01/22/18) EMERGENCY DEPT VISIT (04/13/15) EMERGENCY DEPT VISIT (04/13/15) EVALUATE PT USE OF INHALER (10/02/16) EVALUATION OF WHEEZING (05/03/15) GAIT TRAINING THERAPY (10/02/16) HYDRATE IV INFUSION ADD-ON (04/13/15) IIV4 VACC NO PRSV 0.5 ML IM (05/31/17) LIPID PANEL (07/22/18) METABOLIC PANEL TOTAL CA (06/13/18) MRI JNT OF LWR EXTRE W/O DYE (09/09/18) OFFICE/OUTPATIENT VISIT EST (08/22/18) OFFICE/OUTPATIENT VISIT EST (09/13/15) OFFICE/OUTPATIENT VISIT EST (11/02/14) OFFICE/OUTPATIENT VISIT NEW (01/22/18) OFFICE/OUTPATIENT VISIT NEW (03/05/14) POLYSOM 6/>YRS CPAP 4/> PARM (10/13/15) PPSV23 VACC 2 YRS+ SUBQ/IM (11/02/14) PROTHROMBIN TIME (09/14/16) PT EVAL LOW COMPLEX 20 MIN (10/02/16) RBC ANTIBODY SCREEN (10/02/16) ROUTINE VENIPUNCTURE (07/22/18) THER/PROPH/DIAG INJ IV PUSH (04/13/15) THERAPEUTIC ACTIVITIES (10/02/16) THERAPEUTIC EXERCISES (10/02/16) URINALYSIS AUTO W/O SCOPE (09/14/16) URINALYSIS AUTO W/SCOPE (05/03/16) X-RAY EXAM KNEE 4 OR MORE (08/22/18) X-RAY EXAM OF KNEE 1 OR 2 (10/02/16) X-RAY EXAM OF KNEE 3 (10/12/16)
[2018-10-23] MEDS: Loratadine 10 MG Tab PO SCH (11:34)
--- NOTE | 2018-10-23 13:07 | PCM.SURGPN ---
- General Info Date of Service: 10/23/18 Date of Surgery/Procedure: 10/21/18 Functional Status: Reports: Pain Controlled, Tolerating Diet, Ambulating, Urinating - Review of Systems General: Reports: No Symptoms Pulmonary: Reports: No Symptoms Cardiovascular: Reports: No Symptoms Gastrointestinal: Reports: No Symptoms Systems Review Comment:: pt up to chair for breakfast tolerating PO intake well pain better controlled with Percocet 10/325 overnight anxious to discharge to home today - Patient Data Vitals - Most Recent: Last Vital Signs Temp 97.9 F 10/23/18 08:00 Pulse 80 10/23/18 08:00 Resp 16 10/23/18 08:00 BP 122/67 10/23/18 08:00 Pulse Ox 95 10/23/18 08:00 Weight - Most Recent: 159.665 kg I&O - Last 24 Hours: Intake & Output 10/22/18 10/23/18 10/23/18 22:59 06:59 14:59 Intake Total 1550 1100 500 Output Total 1200 1075 Balance 350 25 500 Lab Results Last 24 Hrs: Laboratory Results - last 24 hr 10/23/18 10/23/18 Range/Units 04:32 04:32 Hgb 12.4 L (13.0-17.0) g/dL Hct 38.1 (38.0-50.0) % Sodium 139 (136-148) mmol/L Potassium 4.7 (3.5-5.1) mmol/L Chloride 102 (98-107) mmol/L Carbon Dioxide 29.8 (21.0-32.0) mmol/L BUN 20 H (7.0-18.0) mg/dL Creatinine 1.3 (0.8-1.3) mg/dL Est Cr Clr Drug Dosing 60.60 mL/min Estimated GFR (MDRD) 54.4 ml/min Glucose 115 H (74-106) mg/dL Calcium 8.5 (8.5-10.1) mg/dL Med Orders - Current: Current Medications Discontinued Medications Hydrocodone Bitart/Acetaminophen (Montreal 325-5 Mg) 2 tab PO Q6H PRN PRN Reason: Pain (moderate 4-6) Last Admin: 10/21/18 22:24 Dose: 2 tab Al Hydroxide/Mg Hydroxide (Mag-Al Plus) 30 ml PO Q4H PRN PRN Reason: Indigestion Albuterol (Proventil Neb Soln) 3 mg NEB Q4H PRN PRN Reason: Wheezing Albuterol (Ventolin Hfa) 0 gm INH Q6H PRN PRN Reason: Shortness of Breath Albuterol (Proventil Neb Soln) 2.5 mg NEB Q6H PRN PRN Reason: Wheezing Aspirin (Ecotrin) 325 mg PO BID [facility] Last Admin: 10/23/18 08:45 Dose: 325 mg Atropine Sulfate (Atropine 0.1 Mg/Ml) 0.4 mg IVPUSH Q5M PRN PRN Reason: Bradycardia Bisacodyl (Dulcolax) 10 mg RECTAL DAILY PRN PRN Reason: Constipation Cefazolin Sodium (Ancef) Confirm Administered Dose 2 gm .ROUTE .STK-MED ONE Stop: 10/21/18 08:31 Diphenhydramine HCl (Benadryl) 25 - 50 mg PO Q6H PRN PRN Reason: Itching Docusate Sodium (Colace) 100 mg PO BID PRN PRN Reason: Constipation Ephedrine Sulfate (Ephedrine Sulfate) Confirm Administered Dose 50 mg .ROUTE .STK-MED ONE Stop: 10/21/18 08:41 Famotidine (Pepcid) 40 mg IVPUSH ONARRIVE [facility] Last Admin: 10/21/18 07:24 Dose: 40 mg Famotidine (Pepcid) 40 mg PO DAILY [facility] Last Admin: 10/23/18 08:44 Dose: 40 mg Fentanyl (Sublimaze) Confirm Administered Dose 100 mcg .ROUTE .STK-MED ONE Stop: 10/21/18 07:11 Fentanyl (Sublimaze) 50 mcg IVPUSH Q5M PRN PRN Reason: Pain (severe 7-10) Stop: 10/22/18 10:08 Fluticasone Propionate (Flonase) 0 gm NASBOTH DAILY [facility] Last Admin: 10/23/18 08:46 Dose: 1 sprays Furosemide (Lasix) 20 mg PO DAILY [facility] Last Admin: 10/23/18 08:44 Dose: 20 mg Hydralazine HCl (Apresoline) 5 mg IVPUSH ONETIME PRN PRN Reason: Hypertension Hydralazine HCl (Apresoline) 10 mg IVPUSH ONETIME PRN PRN Reason: Hypertension Hydromorphone HCl (Dilaudid) 0.5 - 1 mg IVPUSH Q3H PRN PRN Reason: Pain Last Admin: 10/21/18 15:23 Dose: 0.5 mg Hydromorphone HCl (Dilaudid) 0.25 mg IVPUSH Q10M PRN PRN Reason: Pain (severe 7-10) Stop: 10/22/18 10:08 Acetaminophen 1,000 mg/ Premix 100 mls @ 400 mls/hr IV ONARRIVE [facility] Last Admin: 10/21/18 18:48 Dose: 400 mls/hr Cefazolin Sodium/Dextrose 2 gm (/ Premix) 50 mls @ 100 mls/hr IV ONCALL [facility] Last Admin: 10/22/18 00:00 Dose: 100 mls/hr Ropivacaine 49.25 ml/Ketorolac Tromethamine 30 mg/Epinephrine HCl 0.5 mg/ Clonidine HCl 80 mcg/ Sodium Chloride 75 mls @ 50 mls/sec INJECT ASDIRECTED [facility] Lactated Ringer's (Ringers, Lactated) 1,000 mls @ 100 mls/hr IV ASDIRECTED [facility] Last Admin: 10/22/18 04:34 Dose: 100 mls/hr Tranexamic Acid 2,000 mg/ (Sodium Chloride) 120 mls @ 600 mls/hr IV ASDIRECTED [facility] Sodium Chloride (Normal Saline) Confirm Administered Dose 20 mls @ as directed .ROUTE .STK-MED ONE Stop: 10/21/18 08:31 Acetaminophen 1,000 mg/ Premix 100 mls @ 400 mls/hr IV Q6H [facility] Stop: 10/22/18 01:14 Last Admin: 10/21/18 14:05 Dose: Not Given Cefazolin Sodium/Dextrose 2 gm (/ Premix) 50 mls @ 100 mls/hr IV Q8H [facility] Stop: 10/22/18 00:29 Last Admin: 10/22/18 01:29 Dose: 100 mls/hr Acetaminophen 1,000 mg/ Premix 100 mls @ 400 mls/hr IV Q6H [facility] Stop: 10/22/18 01:14 Last Admin: 10/22/18 01:31 Dose: 400 mls/hr Labetalol HCl (Normodyne) 10 mg IVPUSH Q6H PRN PRN Reason: Hypertension Stop: 10/22/18 10:08 Lidocaine (Xylocaine-Mpf 2%) Confirm Administered Dose 5 ml .ROUTE .STK-MED ONE Stop: 10/21/18 07:11 Loratadine (Claritin) 10 mg PO DAILY [facility] Last Admin: 10/23/18 11:34 Dose: Not Given Meperidine HCl (Demerol) 12.5 mg IVPUSH ONETIME PRN PRN Reason: Shivering Meperidine HCl (Demerol) 25 mg IV ONETIME PRN PRN Reason: Shivering Metoclopramide HCl (Reglan) 10 mg IVPUSH ONETIME PRN PRN Reason: Nausea Midazolam HCl (Versed 1 Mg/Ml) Confirm Administered Dose 2 mg .ROUTE .STK-MED ONE Stop: 10/21/18 07:11 Midazolam HCl (Versed 1 Mg/Ml) Confirm Administered Dose 2 mg .ROUTE .STK-MED ONE Stop: 10/21/18 09:42 Montelukast Sodium (Singulair) 10 mg PO BEDTIME [facility] Last Admin: 10/22/18 20:03 Dose: 10 mg Morphine Sulfate (Morphine) 4 mg IVPUSH Q10M PRN PRN Reason: Pain (severe 7-10) Stop: 10/22/18 10:08 Naloxone HCl (Narcan) 0.1 mg IVPUSH ONETIME PRN PRN Reason: Respiratory Depression Ondansetron HCl (Zofran) 4 mg IVPUSH Q6H PRN PRN Reason: Nausea/Vomiting Ondansetron HCl (Zofran) 8 mg IVPUSH ONETIME PRN PRN Reason: Nausea Oxycodone HCl (Oxycodone) 5 - 10 mg PO Q4H PRN PRN Reason: Pain Stop: 10/22/18 06:00 Last Admin: 10/22/18 06:52 Dose: 5 mg Oxycodone/Acetaminophen (Percocet 325-5 Mg) 1 - 2 tab PO Q4H PRN PRN Reason: Pain Last Admin: 10/22/18 13:11 Dose: 2 tab Oxycodone/Acetaminophen (Percocet 325-10 Mg) 1 - 2 tab PO Q4H PRN PRN Reason: Pain Last Admin: 10/23/18 08:44 Dose: 2 tab Budesonide/Formoterol 160-4.5 Mcg/Puff 6 Gm Inhaler 2 each INH BID [facility] Last Admin: 10/23/18 08:46 Dose: 2 each Diltiazem 300 Mg 24 (Hr) 1 each PO QAM [facility] Last Admin: 10/22/18 10:19 Dose: Not Given Diltiazem 300 Mg 24 (Hr) 1 each PO QAM [facility] Last Admin: 10/23/18 08:49 Dose: 1 each Polyethylene Glycol (Miralax) 17 gm PO DAILY [facility] Last Admin: 10/23/18 08:47 Dose: 17 gm Promethazine HCl (Phenergan) 12.5 mg IM ONETIME PRN PRN Reason: Nausea Propofol (Diprivan 20 Ml) Confirm Administered Dose 400 mg .ROUTE .STK-MED ONE Stop: 10/21/18 07:11 Propofol (Diprivan 20 Ml) Confirm Administered Dose 400 mg .ROUTE .STK-MED ONE Stop: 10/21/18 08:51 Rosuvastatin Calcium (Crestor) 10 mg PO Q2D@0900 [facility] Last Admin: 10/21/18 13:51 Dose: Not Given Rosuvastatin Calcium (Crestor) 10 mg PO Q2D@2100 [facility] Last Admin: 10/22/18 20:08 Dose: 10 mg Scopolamine (Transderm-Scop) 1.5 mg TRDERM ONARRIVE [facility] Last Admin: 10/21/18 07:31 Dose: 1.5 mg Scopolamine (Transderm-Scop) 1.5 mg TRDERM Q72H PRN PRN Reason: Nausea Sodium Chloride (Saline Flush) 10 ml FLUSH ASDIRECTED PRN PRN Reason: Keep Vein Open Sodium Chloride (Saline Flush) 2.5 ml FLUSH ASDIRECTED PRN PRN Reason: Keep Vein Open Tamsulosin HCl (Flomax) 0.4 mg PO BEDTIME [facility] Last Admin: 10/22/18 20:03 Dose: 0.4 mg Tranexamic Acid (Cyklokapron) Confirm Administered Dose 2,000 mg .ROUTE .STK- MED ONE Stop: 10/21/18 07:55 - Exam Wound/Incisions: Healing Well. No: Drainage, Erythema General: Alert, Oriented Cardiovascular: Regular Rate, Regular Rhythm Extremities: Other (exam RLE incision c/d/miguel ángel intact, at/ehl/gastroc 5/5, dp 2+, sensation intact distally) Physical Findings Comment:: vss, afeb hgb 12.4 - Problem List Review Problem List Initiated/Reviewed/Updated: Yes - My Orders Last 24 Hours: Active Orders 24 hr Category Date Time Status Ready for Discharge [RC] PER UNIT ROUTINE Care 10/23/18 08:14 Active - Assessment Assessment (Free Text/Narrative):: POD#2 R TKA acute posthemorrhagic anemia - Plan Plan (Free Text/Narrative):: dressing changed to aquacel will d/ch to home today after PT d/ch summary #[id number]
--- NOTE | 2018-10-24 07:53 | DISCH ---
DATE OF DISCHARGE: 10/23/2018 PRIMARY CARE PHYSICIAN: Anthony Cain M.D. ADMITTING DIAGNOSIS: Degenerative joint disease, right knee, tricompartmental. OTHER MEDICAL DIAGNOSES: 1. Coronary artery disease. 2. Osteopenia. 3. Obstructive sleep apnea. 4. Hypertension. 5. Hypercholesterolemia. 6. Benign prostatic hypertrophy. DISCHARGE DIAGNOSES: 1. Degenerative joint disease, right knee, tricompartmental. 2. Coronary artery disease. 3. Osteopenia. 4. Obstructive sleep apnea. 5. Hypertension. 6. Hypercholesterolemia. 7. Benign prostatic hypertrophy. 8. Same as admitting other medical diagnoses. 9. Acute posthemorrhagic anemia. BRIEF HISTORY: Donell is a 72-year-old male who has had progressive complaints of right knee pain. He has tried and failed conservative treatment. At that time, surgical treatment was recommended. He has previously undergone a left total knee arthroplasty and has been doing well with that. On October 21, 2018, the patient underwent a right total knee arthroplasty by Dr. Edith Elias. This was done under spinal anesthesia with sedation. Estimated blood loss was 50 mL. Tourniquet time was 51 minutes. There were no known complications. Upon completion of the procedure, the patient was transferred to the PACU and subsequently admitted to Med/Surg for postoperative care. HOSPITAL COURSE: Postoperatively, the patient did well. He received 2 doses of antibiotics postoperatively for a total of 24 hours of antibiotic coverage. The Hospitalist Service followed him for management of his medical comorbidities. Physical Therapy followed him through his hospital stay as well. Aspirin 325 mg was started on postoperative day #1 as DVT prophylaxis. His pain was controlled with a combination of oral and IV pain medications. His vital signs have been stable. He has been afebrile. His hemoglobin on the morning of October 23 was 12.4. At this time, the patient's pain is well controlled with oral pain medications only. He is tolerating oral intake. He is ambulating well with a wheeled walker. He feels comfortable with discharge to home today. DISCHARGE MEDICATIONS: 1. Percocet 10/325. 2. Colace 100 mg. 3. MiraLAX. 4. Aspirin 325 mg. For complete discharge instructions, please refer back to Dr. Elias's total knee arthroplasty patient instructions. For complete medication reconciliation, please refer back to the patient's EHR. Should you have questions or concerns prior to followup, he has been advised to contact the clinic. KATTY MATHEW /[id number]
== END 2018-10-23 11:25 | disposition home or self-care (01) | DRG 470 ==
LOC: MW.SDS 06:41 → MW.MS 08:01
PROVIDERS: ADMIT Orthopaedic Surgery; ATTEND Orthopaedic Surgery
PROC: 0SRC0J9 Replacement of Right Knee Joint with Synthetic Substitute, Cemented, Open Approach (ICD-10-PCS; principal; 2018-10-21)
DX: M17.11 Unilateral primary osteoarthritis, right knee (principal); D62 Acute posthemorrhagic anemia; Z68.42 Body mass index [BMI] 45.0-49.9, adult; M94.261 Chondromalacia, right knee; M25.761 Osteophyte, right knee; I25.10 Atherosclerotic heart disease of native coronary artery without angina pectoris; M85.80 Other specified disorders of bone density and structure, unspecified site; G47.33 Obstructive sleep apnea (adult) (pediatric); I10 Essential (primary) hypertension; E78.00 Pure hypercholesterolemia, unspecified; J44.9 Chronic obstructive pulmonary disease, unspecified; J45.40 Moderate persistent asthma, uncomplicated; G89.29 Other chronic pain; E66.01 Morbid (severe) obesity due to excess calories; N40.1 Benign prostatic hyperplasia with lower urinary tract symptoms; H91.90 Unspecified hearing loss, unspecified ear; R35.0 Frequency of micturition; Z79.82 Long term (current) use of aspirin; Z79.899 Other long term (current) drug therapy; Z91.048 Other nonmedicinal substance allergy status; Z96.652 Presence of left artificial knee joint; Z95.5 Presence of coronary angioplasty implant and graft; Z99.89 Dependence on other enabling machines and devices; Z86.010 Personal history of colon polyps
CPT/HCPCS: 36415; 86850; 86900; 86901; A9270; J0131; J2001; J2250; J2704; J3010; J3490; J7120; 73560-26-RT; 73560-RT; 80048; 85014; 85018; 85025; 97110-GP; 97116-GP; 97161-GP; 97530-GP; C1713; C1776; J0690; J1170

== ENCOUNTER 2020-08-15 23:19 | Emergency (ER) | payer MEDICARE, OTHER ==
[2020-08-16] MEDS ORDERED: Aspirin 81 MG Tab.EC PO ONE (00:03)
[2020-08-16] MEDS ORDERED: Aspirin 81 MG Tab.Chew PO STA (00:03)
[2020-08-16] MEDS ORDERED: Aspirin 81 MG Tab.Chew PO ONE (00:22)
--- NOTE | 2020-08-16 00:42 | CR ---
INDICATION: History chronic obstructive pulmonary disease, right lateral chest pain after eating TECHNIQUE: Chest radiograph 2 views on 3 films COMPARISON: None FINDINGS: Moderate degradation of image quality noted due to body habitus. Mediastinum: The mediastinum is normal in appearance. The heart silhouette is normal in size and morphology. Lung: Both lungs are unremarkable in appearance. No sign of pleural effusion seen. No pneumothorax is identified. Bone and Soft tissue: Unremarkable for age. IMPRESSION: 1. No acute cardiopulmonary disease is seen. Dictated by: Feliz Joshua MD @ 08/16/2020 00:41:51 (Electronically Signed)
[2020-08-16 00:49] LABS: BLOOD UREA NITROGEN,BUN 20 mg/dL (7.0-18.0); CARBON DIOXIDE,CO2 30.8 mmol/L (21.0-32.0); CHLORIDE,CL 103 mmol/L (98-107); GLUCOSE RANDOM 183 mg/dL (74-106); LIPASE 94 U/L (73-393); POTASSIUM,K 4.3 mmol/L (3.5-5.1); SODIUM,NA 141 mmol/L (136-148)
[2020-08-16] MEDS ORDERED: Morphine 4 MG/ML Syringe IVPUSH ONE (01:10)
[2020-08-16] MEDS ORDERED: Iopamidol 755 MG/ML 500 ML Multipack Bottle IVPUSH STA (01:55)
--- NOTE | 2020-08-16 02:36 | CT ---
INDICATION: Right upper quadrant pain TECHNIQUE: CT Abdomen and pelvis with i.v. contrast. Coronal and sagittal reformats were obtained. CONTRAST: 100 mL Isovue 370 COMPARISON: 01/01/2019 FINDINGS: Lower chest: Mild linear scarring is seen in the right lung base. Moderate atherosclerotic calcifications are noted in the coronary arteries. Liver: Unremarkable. Spleen: Unremarkable. Pancreas: Unremarkable. Gallbladder: Punctate radiolucent gallstone is noted. Kidney: There is faint densities within the renal calices bilaterally which may be due to early contrast excretion. Adrenal: Unremarkable. Bowel: Unremarkable. The appendix cannot be identified but there are no inflammatory changes noted in the right lower quadrant. Eventration or herniation of the left lateral abdominal wall is present but cannot be evaluated as most of the left flank is excluded. The appearance is similar to prior exam. Vascular: Unremarkable. Lymph: Unremarkable. Peritoneum: Unremarkable. No pneumoperitoneum is seen. No significant ascites is noted. Pelvis: Evaluation of the pelvic soft tissues, distal right ureter and osseous structures are limited by beam hardening artifacts from the right hip prosthesis. Soft tissue: Unremarkable. Bone: Unremarkable for age. IMPRESSION: 1. Eventration or herniation of the left lateral abdominal wall is present but cannot be evaluated as most of the left flank is excluded. The appearance is similar to prior exam. This also prevents evaluation of the descending colon and portions of the spleen. 2. No identified etiology for the patient`s right upper quadrant pain is seen. Dictated by Feliz Joshua MD @ 08/16/2020 2:34:00 AM Please note that all CT scans at this facility use dose modulation, iterative reconstruction, and/or weight-based dosing when appropriate to reduce radiation dose to as low as reasonably achievable. Dictated by: Feliz Joshua MD @ 08/16/2020 02:34:05 (Electronically Signed)
--- NOTE | 2020-08-16 02:51 | EDM.PDOC ---
ED HPI GENERAL MEDICAL PROBLEM - General Chief Complaint: Abdominal Pain Stated Complaint: SHARP PAIN Time Seen by Provider: 08/16/20 00:20 - History of Present Illness INITIAL COMMENTS - FREE TEXT/NARRATIVE: CHIEF COMPLAINT(S): Right-sided chest wall and abdominal pain HISTORY OF PRESENT ILLNESS: This is a 73-year-old man with a past medical history of CAD status post stent, hypertension and COPD who comes to the emergency department with a chief complaint of right-sided abdominal pain and chest wall pain. The patient states that he was eating a caramel snack when he started to experience sudden onset sharp/achy pain that started on the right side of his abdomen and radiating to the middle. He denies any shortness of breath, chest pain, nausea or vomiting. He states that he was sitting at the time. He states that the pain is rated 6-8 out of 10 and feels better when his hand is held up. He states that there is some pain with deep breaths. He states that he thought it was gas but he did have a bowel movement prior to coming into the emergency department which did not seem to aggravate or relieve the pain. He denies any other symptoms including fever, chills, diarrhea, constipation. REVIEW OF SYSTEMS: Constitutional: Denies fever, chills. Eyes: Denies eye pain Ears, Nose, Mouth, & Throat: Denies earache Cardiovascular: Denies chest pain Respiratory: Denies shortness of breath Gastrointestinal: Positive for right-sided abdominal pain. Denies nausea, vomiting, diarrhea, hematochezia, hematemesis, bilious emesis Genitourinary: Denies hematuria, dysuria Skin:Denies a rash Neurological: Denies blurred vision Psychiatric: Denies depression PAST MEDICAL HISTORY: As per history of present illness and as reviewed below otherwise noncontributory. SURGICAL HISTORY: As per history of present illness and as reviewed below otherwise noncontributory. SOCIAL HISTORY: As per history of present illness and as reviewed below otherwise noncontributory. FAMILY HISTORY: As per history of present illness and as reviewed below otherwise noncontributory. EXAMINATION OF ORGAN SYSTEMS/BODY AREAS: Constitutional: Blood pressure is 156/88, heart rate 73, respiratory rate 18 with an oxygen saturation 97% on room air. Temperature 36.2 General: Obese gentleman who does not appear to be in acute distress. Psychiatric: Appropriate mood and affect. Eyes: No scleral icterus or conjunctival erythema ENMT: Moist mucous membranes. No pharyngeal erythema Cardiovascular: Regular, rate, and rhythm. No gallops, murmurs, or rubs. Bilateral upper extremity pulses symmetric and intact. No peripheral edema. No JVD. Respiratory: Lungs clear to auscultation bilaterally. No wheezes, rales, or rhonchi. Gastrointestinal: Soft, non-tender, non-distended. Normoactive bowel sounds no rebound or guarding. There is a large left-sided abdominal wall hernia near the spleen without any tenderness and does not appear to be incarcerated or strangulated Genitourinary: No suprapubic tenderness Musculoskeletal: Normal range of motion. There is point tenderness along the inferior ribs of the right chest. Skin: No lesions or abrasions. Neurological: Alert, GCS 15 strength and sensation grossly intact in upper and lower extremities bilaterally MEDICAL DECISION MAKING AND COURSE IN THE ED WITH INTERPRETATION/REVIEW OF DIAGNOSTIC STUDIES: This is a 73-year-old man with a past medical history of CAD status post stent, hypertension and COPD who comes to the emergency department with acute sudden onset right-sided abdominal pain with an examination revealing point tenderness along the inferior ribs on the right side. The patient is mildly hypertensive but overall appears well. There is no abnormality otherwise on examination. At this time the patient had received a screening EKG which did not reveal any acute signs of ischemia. Will obtain labs including CBC, CMP, coags, lipase, magnesium, troponin and obtain a two-view chest x-ray. At this time patient is likely experiencing costochondritis versus musculoskeletal strain given that it is relieved by movement of his arm. However the patient's age indicates a cardiac work-up. It has been 3 to 4 hours since symptom onset therefore we will only obtain one troponin. We will reevaluate the patient. We will provide the patient with aspirin by mouth. Twelve-lead EKG interpreted by myself. Normal sinus rhythm at a rate of 65 beats per minute. Normal axis. CO interval is 207 ms. QRS duration is [address] segments are normal without elevations or depressions. No Q waves present. Hypertrophy not noted. No changes demonstrated from prior EKG dated September 25, 2018. Interpretation: Normal sinus rhythm Laboratory: CBC is unremarkable. Coags are within normal limits. CMP reveals hyperglycemia at 183 and hypoalbuminemia at 3.3 otherwise unremarkable. Troponin is negative. Lipase is 94. The radiological images were viewed by myself along with reading the report from the radiologist. 2 view chest x-ray does not reveal any acute cardiopulmonary process. On reevaluation the patient stated that he had continued pain. I did reevaluate the patient's abdomen and he did have some tenderness to palpation in the right lower quadrant of his abdomen and along the right inferior rib. I did discuss with him at this time that his labs look unremarkable and we could obtain a CT abdomen pelvis to evaluate for any intra-abdominal process. He was mild to this plan. He read the patient with 4 mg of IV morphine for the pain and will obtain a CT abdomen pelvis with contrast. The radiological images were viewed by myself along with reading the report from the radiologist. CT abdomen pelvis with contrast reveals herniation of the left lateral abdominal wall but cannot be evaluated as most of the left flank is excluded. This appears similar to prior exam. No identified etiology for the right upper quadrant pain. After imaging I did discuss the results with the patient. At this time his pain and improved. I did discuss him at this time I do believe it secondary to musculoskeletal strain versus costochondritis. I discussed that he should use [id number] Tylenol and Motrin and he could use Voltaren cream or lidocaine cream. I discussed that if he were to have any new or worsening symptoms he should return to the emergency department. He was amenable to discharge at this time and had no further questions DISPOSITION: The patient was discharged home in stable condition. The patient will follow up with PCP CONDITION: Fair PROCEDURES: None FINAL IMPRESSION(S)/DIAGNOSES: 1. Acute right-sided chest wall pain Jose Oleary M.D. R abdomen radiating to back Pain Score (Numeric/FACES): 10 - Related Data Allergies Allergy/AdvReac Type Severity Reaction Status Date / Time house dust Allergy Shortness Verified 08/15/20 23:43 of Breath Home Meds: Home Meds Rosuvastatin [Crestor] 10 mg PO Q2D 12/02/14 [History] Albuterol Sulfate 1 vial INH Q4HR PRN 09/28/16 [History] Albuterol Sulfate [Proair Hfa] 2 puff INH QID PRN 09/28/16 [History] Fluticasone Propionate [Flonase] 1 spray NASBOTH DAILY 09/28/16 [History] Loratadine [Claritin] 10 mg PO DAILY 09/28/16 [History] Montelukast Sodium 10 mg PO BEDTIME 09/28/16 [History] Tamsulosin HCl [Flomax] 0.4 mg PO BEDTIME 09/28/16 [History] dilTIAZem HCL [Diltiazem 24Hr ER (LA)] 300 mg PO QAM 09/28/16 [History] Furosemide 20 mg PO DAILY 01/29/18 [History] Budesonide/Formoterol [Symbicort 160-4.5 MCG] 2 puff INH BID 10/17/18 [History] Aspirin [Ecotrin EC] 325 mg PO BID #60 tab.ec 10/23/18 [Rx] Docusate Sodium [Colace] 100 mg PO BID PRN #60 cap 10/23/18 [Rx] polyethylene glycoL 3350 [MiraLAX] 17 gm PO DAILY #30 packet 10/23/18 [Rx] Past Medical History HEENT History: Reports: Hard of Hearing, Other (See Below) Other HEENT History: wears glasses, has bilateral hearing aides Cardiovascular History: Reports: High Cholesterol, Hypertension, Stents Other Cardiovascular History: stents x 2 in Jul 2015 Respiratory History: Reports: Asthma, COPD, Sleep Apnea, SOB Other Respiratory History: uses CPAP Gastrointestinal History: Reports: Colon Polyp, Diverticulosis, Other (See Below) Other Gastrointestinal History: was told he had an abdominal hernia on his left side Genitourinary History: Reports: BPH Musculoskeletal History: Reports: Fracture, Osteoarthritis Other Musculoskeletal History: hx of fx thumb Neurological History: Reports: None Psychiatric History: Reports: None Endocrine/Metabolic History: Reports: Obesity/BMI 30+ Hematologic History: Reports: None Immunologic History: Reports: None Oncologic (Cancer) History: Reports: None Dermatologic History: Reports: None - Infectious Disease History Infectious Disease History: Reports: Chicken Pox, Measles, Mumps - Past Surgical History Head Surgeries/Procedures: Reports: None HEENT Surgical History: Reports: Tonsillectomy Cardiovascular Surgical History: Reports: Coronary Artery Stent Other Cardiovascular Surgeries/Procedures: hx of Angioplasty with 2 stents placed, denies chest pain now Respiratory Surgical History: Reports: None GI Surgical History: Reports: Colonoscopy Male Surgical History: Reports: None Endocrine Surgical History: Reports: None Neurological Surgical History: Reports: None Musculoskeletal Surgical History: Reports: Knee Replacement, ORIF, Other (See Below) Other Musculoskeletal Surgeries/Procedures:: hx of left TKA, hx of ORIF fx thumb (no hardware), hx of repair of traumatic injury to shoulder Dermatological Surgical History: Reports: None Social & Family History - Family History Cardiac: Reports: PR Endocrine/Metabolic: Reports: Other (See Below) Other Endocrine/Metabolic Family History: Diabetes, type unknown Dermatologic: Reports: Eczema Oncologic: Reports: Bone - Tobacco Use Tobacco Use Status *Q: Never Tobacco User - Caffeine Use Caffeine Use: Reports: Coffee, Tea - Living Situation & Occupation Living situation: Reports: ED ROS GENERAL - Review of Systems Review Of Systems: See Below ED EXAM, GENERAL - Physical Exam Exam: See Below Course - Vital Signs Last Recorded V/S: Last Vital Signs Temp 36.2 C 08/15/20 23:38 Pulse 66 08/16/20 03:06 Resp 18 08/16/20 03:06 BP 176/87 H 08/16/20 03:06 Pulse Ox 94 L 08/16/20 03:06 - Orders/Labs/Meds Labs: Laboratory Tests 08/16/20 08/16/20 08/16/20 Range/Units 00:20 00:20 00:20 WBC 6.64 (4.0-11.0) K/uL RBC 4.41 L (4.50-5.90) M/uL Hgb 13.9 (13.0-17.0) g/dL Hct 41.9 (38.0-50.0) % MCV 95.0 (80.0-98.0) fL MCH 31.5 (27.0-32.0) pg MCHC 33.2 (31.0-37.0) g/dL RDW Std Deviation 42.0 (28.0-62.0) fl RDW Coeff of Sonia 13 (11.0-15.0) % Plt Count 161 (150-400) K/uL MPV 9.80 (7.40-12.00) fL Neut % (Auto) 75.6 (48.0-80.0) % Lymph % (Auto) 11.9 L (16.0-40.0) % [place] % (Auto) 10.2 (0.0-15.0) % Eos % (Auto) 2.1 (0.0-7.0) % Baso % (Auto) 0.2 (0.0-1.5) % Neut # (Auto) 5.0 (1.4-5.7) K/uL Lymph # (Auto) 0.8 (0.6-2.4) K/uL [place] # (Auto) 0.7 (0.0-0.8) K/uL Eos # (Auto) 0.1 (0.0-0.7) K/uL Baso # (Auto) 0.0 (0.0-0.1) K/uL INR 0.95 Sodium 141 (136-148) mmol/L Potassium 4.3 (3.5-5.1) mmol/L Chloride 103 (98-107) mmol/L Carbon Dioxide 30.8 (21.0-32.0) mmol/L BUN 20 H (7.0-18.0) mg/dL Creatinine 1.2 (0.8-1.3) mg/dL Est Cr Clr Drug Dosing 63.74 mL/min Estimated GFR (MDRD) 59.3 ml/min Glucose 183 H (74-106) mg/dL Calcium 9.0 (8.5-10.1) mg/dL Magnesium 2.1 (1.8-2.4) mg/dL Total Bilirubin 0.3 (0.2-1.0) mg/dL AST 34 (15-37) IU/L ALT 26 (14-63) IU/L Alkaline Phosphatase 96 (46-116) U/L Troponin I < 0.050 (0.000-0.056) ng/mL Total Protein 6.7 (6.4-8.2) g/dL Albumin 3.3 L (3.4-5.0) g/dL Globulin 3.4 (2.6-4.0) g/dL Albumin/Globulin Ratio 1.0 (0.9-1.6) Lipase 94 (73-393) U/L Meds: Medications Discontinued Medications Generic Name Dose Route Start Last Admin Trade Name Freq PRN Reason Stop Dose Admin Aspirin 162 mg 08/16/20 00:03 08/16/20 00:28 Aspirin PO 08/16/20 00:04 Not Given ONETIME STA Aspirin 243 mg 08/16/20 00:22 08/16/20 00:38 Aspirin PO 08/16/20 00:23 243 mg ONETIME ONE Administration Iopamidol 100 ml 08/16/20 01:55 08/16/20 01:56 Isovue Multipack-370 (76%) IVPUSH 08/16/20 01:56 100 ml ONETIME STA Administration Morphine Sulfate 4 mg 08/16/20 01:10 08/16/20 01:21 Morphine IVPUSH 08/16/20 01:11 4 mg ONETIME ONE Administration Departure - Departure Time of Disposition: 02:49 Disposition: Home, Self-Care 01 Condition: Fair Clinical Impression: Chest wall pain - Discharge Information *PRESCRIPTION DRUG MONITORING PROGRAM REVIEWED*: No *COPY OF PRESCRIPTION DRUG MONITORING REPORT IN PATIENT EMILEE: No Instructions: Abdominal Pain, Adult, [id number], Nonspecific Chest Pain, Adult, [id number] Referrals: Anthony Cain MD [Primary Care Provider] - Forms: ED Department Discharge Additional Instructions: Your evaluated today on an emergent basis. Your work-up was negative. At this time I do suspect the possibility of muscle spasm versus strain versus inflammation of your ribs given its location on your lower ribs on both sides and your back. I do recommend using Tylenol 500 mg to 1000 mg every 6 hours and Motrin 400 mg every 6 hours for pain relief for the next 48 hours. After 48 hours then use these medications as needed. In addition to this you can obtain [id number] cream. The first cream is Voltaren which is a NSAID similar to ibuprofen which is topical. You can use this up to 4 times a day. If you prefer you can also purchase what is called Lidoderm which is a numbing medication which can be applied approximately 4 times a day. Apply to the affected areas. We will provide you with an incentive spirometer which you should use throughout the day. Please follow-up with your primary care physician in 2 to 3 days. Return if there are any new or worsening symptoms. [facility] [address] [place] [id number] [facility] [address] [place] [id number] The patient is informed of any results of their evaluation and diagnostic workup and all questions are answered. They are given discharge instructions and return precautions. The patient is stable for discharge. The patient states they understand and agree with the plan and that they will return if their symptoms get worse or if they have any new concerns. The following information is given to patients seen in the emergency department who are being discharged to home. This information is to outline your options for follow-up care. We provide all patients seen in our emergency department with a follow-up referral. The need for follow-up, as well as the timing and circumstances, are variable depending upon the specifics of your emergency department visit. If you don't have a primary care physician on staff, we will provide you with a referral. We always advise you to contact your personal physician following an emergency department visit to inform them of the circumstance of the visit and for follow-up with them and/or the need for any referrals to a consulting specialist. The emergency department will also refer you to a specialist when appropriate. This referral assures that you have the opportunity for follow-up care with a specialist. All of these measure are taken in an effort to provide you with optimal care, which includes your follow-up. Under all circumstances we always encourage you to contact your private physician who remains a resource for coordinating your care. When calling for follow-up care, please make the office aware that this follow-up is from your recent emergency room visit. If for any reason you are refused follow-up, please contact the [facility] Emergency Department at and asked to speak to the emergency department charge nurse. Sepsis Event Note (ED) - Evaluation Sepsis Screening Result: No Definite Risk
[2020-08-16 03:06] VITALS: BP 176/87; PULSE 66
== END 2020-08-16 03:12 | disposition home or self-care (01) ==
LOC: MW.ED 23:19
DX: R07.89 Other chest pain (principal); E78.00 Pure hypercholesterolemia, unspecified; I10 Essential (primary) hypertension; J44.9 Chronic obstructive pulmonary disease, unspecified; M19.90 Unspecified osteoarthritis, unspecified site; I25.10 Atherosclerotic heart disease of native coronary artery without angina pectoris; E66.9 Obesity, unspecified; Z68.41 Body mass index [BMI] 40.0-44.9, adult; Z91.048 Other nonmedicinal substance allergy status; Z79.82 Long term (current) use of aspirin; Z79.899 Other long term (current) drug therapy
CPT/HCPCS: 36415; 71046; 74177; 80053; 83690; 83735; 84484; 85025; 85610; 93005; 96374; 99285; A9270; J2270; Q9967; 93010; 99284

== ENCOUNTER 2021-02-25 08:09 | Day surgery (SDC) | payer MEDICARE, OTHER ==
[~2021-02-25 08:09] MED LIST changes: -Famotidine 20 MG/2 ML SDV IVPUSH SCH; +Lactated Ringers 1,000 ML IV SCH; -Scopolamine 1.5 MG Transdermal Patch TRDERM SCH; +cefOXitin 2 GM in Premix Bag 1 BAG IV ONE
--- NOTE | 2021-02-25 08:39 | PCM.PREANE ---
Preanesthetic Assessment - Procedure Proposed Procedure: Colonoscopy - Anesthesia/Transfusion/Family Hx Anesthesia History: Prior Anesthesia Without Reaction Other Type of Anesthesia Reaction Comment: Denies any known problem in past Transfusion History: No Prior Transfusion(s) Intubation History: History of Difficulty Intubation - Review of Systems General: No Symptoms Pulmonary: No Symptoms (COPD on MDI, used at time of our visit) Cardiovascular: No Symptoms (2 STENTS, several years ago, followed by cardiolog y, no problems since) Gastrointestinal: No Symptoms (h/o Polyps) Neurological: No Symptoms Other: Reports: Diabetes (NIDDM) - Physical Assessment NPO Status Date: 02/24/21 NPO Status Time: 08:00 Vital Signs: Last Vital Signs Temp 96.8 F L 02/25/21 08:33 Pulse 78 02/25/21 08:33 Resp 16 02/25/21 08:33 BP 170/88 H 02/25/21 08:33 Pulse Ox 95 02/25/21 08:33 Height: 6 ft 2 in Weight: 154.221 kg (Morbid Obesity) ASA Class: 3 Mental Status: Alert & Oriented x3 Airway Class: Mallampati = 3 Dentition: Reports: Normal Dentition Thyro-Mental Finger Breadths: 3 Mouth Opening Finger Breadths: 3 ROM/Head Extension: Full Lungs: Clear to Auscultation, Normal Respiratory Effort Cardiovascular: Regular Rate, Regular Rhythm - Allergies Allergies/Adverse Reactions: Allergies Allergy/AdvReac Type Severity Reaction Status Date / Time house dust Allergy Shortness Verified 02/21/21 10:50 of Breath - Acknowledgements Anesthesia Type Planned: General Anesthesia Pt an Appropriate Candidate for the Planned Anesthesia: Yes Alternatives and Risks of Anesthesia Discussed w Pt/Guardian: Yes Pt/Guardian Understands and Agrees with Anesthesia Plan: Yes PreAnesthesia Questionnaire HEENT History: Reports: Allergic Rhinitis, Hard of Hearing Other HEENT History: wears glasses, has bilateral hearing aides Cardiovascular History: Reports: High Cholesterol, Hypertension, Stents, Other (See Below) Other Cardiovascular History: some swelling in ankles Respiratory History: Reports: COPD, Sleep Apnea Other Respiratory History: uses CPAP nightly Gastrointestinal History: Reports: Colon Polyp, Diverticulosis Other Gastrointestinal History: was told he had an abdominal hernia on his left side Genitourinary History: Reports: BPH Musculoskeletal History: Reports: Neck Pain, Chronic, Osteoarthritis Other Musculoskeletal History: hx of fx thumb Neurological History: Reports: None Other Neuro History: disc disease, currently being treated for neck pain Psychiatric History: Reports: Other (See Below) Other Psychiatric History: claustrophobia Endocrine/Metabolic History: Reports: Obesity/BMI 30+, Other (See Below) Other Endocrine/Metabolic History: "pre-diabetic" Hematologic History: Reports: None Immunologic History: Reports: None Oncologic (Cancer) History: Reports: None Dermatologic History: Reports: None - Infectious Disease History Infectious Disease History: Reports: Chicken Pox, Measles, Mumps - Past Surgical History Head Surgeries/Procedures: Reports: None HEENT Surgical History: Reports: None Cardiovascular Surgical History: Reports: Coronary Artery Stent Other Cardiovascular Surgeries/Procedures: Angioplasty with 2 stents placed Respiratory Surgical History: Reports: None GI Surgical History: Reports: Colonoscopy Male Surgical History: Reports: Vasectomy Endocrine Surgical History: Reports: None Neurological Surgical History: Reports: None Musculoskeletal Surgical History: Reports: Hip Replacement, Knee Replacement, ORIF, Shoulder Surgery Other Musculoskeletal Surgeries/Procedures:: bilateral TKA, right JEREMIAS, ORIF thumb (no hardware), schrapnel removed from shoulder - SUBSTANCE USE Tobacco Use Status *Q: Never Tobacco User Recreational Drug Use History: No - HOME MEDS Home Medications: Home Meds Rosuvastatin [Crestor] 5 mg PO DAILY 12/02/14 [History] Albuterol Sulfate 1 vial INH Q12H PRN 09/28/16 [History] Albuterol Sulfate [Proair Hfa] 2 puff INH QID PRN 09/28/16 [History] Loratadine [Claritin] 10 mg PO DAILY 09/28/16 [History] Montelukast Sodium 10 mg PO BEDTIME 09/28/16 [History] Tamsulosin HCl [Flomax] 0.4 mg PO BEDTIME 09/28/16 [History] dilTIAZem HCL [Diltiazem 24Hr ER (LA)] 300 mg PO QAM 09/28/16 [History] Furosemide 40 mg PO DAILY 01/29/18 [History] Budesonide/Formoterol [Symbicort 160-4.5 MCG] 2 puff INH BID 10/17/18 [History] Aspirin [Adult Low Dose Aspirin EC] 81 mg PO DAILY 02/21/21 [History] Fluticasone Propionate [Flonase Allergy Relief] 1 spray NASBOTH DAILY PRN 02/21/21 [History] metFORMIN HCl [Metformin HCl ER] 500 mg PO BID 02/21/21 [History] - CURRENT (IN HOUSE) MEDS Current Meds: Current Medications Lactated Ringer's (Ringers, Lactated) 1,000 mls @ 125 mls/hr IV ASDIRECTED [facility] Last Admin: 02/25/21 08:34 Dose: 125 mls/hr Documented by: Discontinued Medications Cefoxitin Sodium 2 gm/ Premix 50 mls @ 100 mls/hr IV ONETIME ONE Stop: 02/25/21 07:29
[2021-02-25] MEDS ORDERED: propofoL 0 ML ONE (08:48)
[2021-02-25] MEDS ORDERED: fentaNYL 100 MCG/2 ML SDV ONE (09:12)
[2021-02-25] MEDS ORDERED: Propofol 200 MG/20 ML SDV ONE ×2 (09:12→09:39)
[2021-02-25] MEDS ORDERED: Lactated Ringers 1,000 ML IV SCH (09:45)
--- NOTE | 2021-02-25 09:47 | PCM.OPNOTE ---
- General Post-Op/Procedure Note Date of Surgery/Procedure: 02/25/21 Operative Procedure(s): Colonoscopy with cold transverse colon polypectomy and snare rectal polypectomy Pre Op Diagnosis: Personal history of colon polyps. History of diverticulosis. Post-Op Diagnosis: Transverse colon polyp. Rectal polyp. Pancolonic diverticulosis. Anesthesia Technique: MAC (ASA III) Primary Surgeon: Victor M Torres Condition: Good Free Text/Narrative:: DICTATION 156228 CPT CODE 11250/16842
--- NOTE | 2021-02-25 09:52 | PCM.POSTAN ---
POST ANESTHESIA ASSESSMENT - MENTAL STATUS Mental Status: Alert, Oriented - VITAL SIGNS Vital Signs: Last Vital Signs Temp 97.0 F 02/25/21 09:45 Pulse 60 02/25/21 09:51 Resp 1 L 02/25/21 09:51 BP 123/64 02/25/21 09:51 Pulse Ox 98 02/25/21 09:51 - RESPIRATORY Respiratory Status: Respiratory Rate WNL, Airway Patent, O2 Saturation Stable - CARDIOVASCULAR CV Status: Pulse Rate WNL, Blood Pressure Stable - GASTROINTESTINAL GI Status: No Symptoms - PAIN Pain Score: 0 - POST OP HYDRATION Hydration Status: Adequate & Stable
--- NOTE | 2021-02-25 10:04 | PCM48HPAN ---
Post Anesthesia Note - EVALUATION WITHIN 48HRS OF ANESTHETIC Vital Signs in Normal Range: Yes Patient Participated in Evaluation: Yes Respiratory Function Stable: Yes Airway Patent: Yes Cardiovascular Function Stable: Yes Hydration Status Stable: Yes Pain Control Satisfactory: Yes Nausea and Vomiting Control Satisfactory: Yes Mental Status Recovered: Yes Vital Signs: Last Vital Signs Temp 97.0 F 02/25/21 09:45 Pulse 63 02/25/21 10:01 Resp 17 02/25/21 10:01 BP 126/67 02/25/21 10:01 Pulse Ox 94 L 02/25/21 10:01 - COMMENTS/OBSERVATIONS Free Text/Narrative:: Pt doing well post-op. VSS. No apparent anesthetic complications. Dr. Clem Munguia
[2021-02-25 10:13] VITALS: BP 141/68; PULSE 65
--- NOTE | 2021-02-25 11:50 | OR ---
SURGEON: Victor M Torres M.D. DATE OF PROCEDURE: 02/25/2021 OPERATION PERFORMED: Colonoscopy with cold transverse colon polypectomy and snare rectal polypectomy. PRIMARY SURGEON: Victor M Torres MD ANESTHESIA: MAC. ASA CLASSIFICATION: III. PREOPERATIVE DIAGNOSIS: Personal history of colon polyps. POSTOPERATIVE DIAGNOSES: 1. Transverse colon polyp. 2. Rectal polyp. 3. Pancolonic diverticulosis. DESCRIPTION OF PROCEDURE: The patient was taken to the endoscopy room and positioned on the endoscopy table in the left lateral decubitus position. Time-out was called for appropriate identification of the patient and procedure. Monitored anesthesia care was provided. The colonoscope was inserted into the rectum and advanced with minimal difficulty to the cecum. The cecum was identified by internal landmarks and external pressure. The colonoscope was retroflexed to visualize the ascending colon from below, then straightened, and slowly withdrawn. The cecum, ascending colon, and proximal and mid transverse colon showed no tumors, polyps, or angiodysplastic changes. A few small scattered diverticula were noted. One small polyp was encountered in the distal transverse colon and removed with cold biopsy forceps. The splenic flexure and descending colon showed no tumors, polyps, or diverticular changes. Sigmoid colon demonstrated moderate diverticular disease. One polyp was encountered in the rectum and removed and recovered using snare electrocautery. No significant bleeding was noted. The colonoscope was retroflexed to visualize the ascending colon from below, was retroflexed to visualize the anal orifice from above. No acute hemorrhoidal changes were noted. The colonoscope was then straightened, the rectum aspirated, and the colonoscope removed. The patient tolerated the procedure well and was taken to recovery room in satisfactory condition. NATI / PRIYANKA /[id number]
== END 2021-02-25 10:30 | disposition home or self-care (01) ==
LOC: MW.SDS 08:09
PROVIDERS: ATTEND Surgery
DX: D12.3 Benign neoplasm of transverse colon (principal); D12.8 Benign neoplasm of rectum; K57.30 Diverticulosis of large intestine without perforation or abscess without bleeding; J44.9 Chronic obstructive pulmonary disease, unspecified; I10 Essential (primary) hypertension; E78.00 Pure hypercholesterolemia, unspecified; E66.01 Morbid (severe) obesity due to excess calories; G47.33 Obstructive sleep apnea (adult) (pediatric); I25.10 Atherosclerotic heart disease of native coronary artery without angina pectoris; R73.03 Prediabetes; G47.30 Sleep apnea, unspecified; Z79.82 Long term (current) use of aspirin; Z79.84 Long term (current) use of oral hypoglycemic drugs; Z79.899 Other long term (current) drug therapy; Z68.41 Body mass index [BMI] 40.0-44.9, adult; Z86.010 Personal history of colon polyps
CPT/HCPCS: 45380; 45385; 88305; J2704; J3010; J7120; 00812; 99100

== ENCOUNTER 2022-07-09 16:58 | Emergency (ER) | payer MEDICARE, OTHER ==
[2022-07-09] MEDS ORDERED: Ciprofloxacin/Dexamethasone 0.3-0.1% Otic Susp 7.5 ML Bottle EARRT STA (19:36)
[2022-07-09] MEDS ORDERED: Amoxicillin/Clavulanate K 875-125 MG Tab PO ONE (19:36)
[2022-07-09 19:39] VITALS: BP 174/83; PULSE 88
== END 2022-07-09 20:14 | disposition home or self-care (01) ==
LOC: MW.ED 16:58
DX: H66.001 Acute suppurative otitis media without spontaneous rupture of ear drum, right ear (principal); H60.501 Unspecified acute noninfective otitis externa, right ear; E78.00 Pure hypercholesterolemia, unspecified; I10 Essential (primary) hypertension; J44.9 Chronic obstructive pulmonary disease, unspecified; M19.90 Unspecified osteoarthritis, unspecified site; E66.9 Obesity, unspecified; Z68.41 Body mass index [BMI] 40.0-44.9, adult; Z91.048 Other nonmedicinal substance allergy status; Z79.899 Other long term (current) drug therapy; Z79.82 Long term (current) use of aspirin
CPT/HCPCS: 99283; A9270